=== PATIENT | female | born 1940 | race American Indian/Alaskan Native ===

== ENCOUNTER 2019-10-08 16:37 | Inpatient (IN) | payer MEDICARE ==
[2019-10-08 17:20] LABS: Eosinophils % (Auto) 0.3 % (0.0-4.3); Hematocrit 47.9 % (30.3-42.9); Hemoglobin 15.2 gm/dl (10.1-14.3); Lymphocytes # (Auto) 1.1 K/mm3 (1.2-5.4); Lymphocytes % (Auto) 23.6 % (13.4-35.0); Mean Corpuscular HGB Conc 32 % (30-34); Mean Corpuscular Volume 97 fl (79-97); Monocytes # (Auto) 0.4 K/mm3 (0.0-0.8); Monocytes % (Auto) 7.8 % (0.0-7.3); Platelet Count 202 K/mm3 (140-440); Red Blood Count 4.92 M/mm3 (3.65-5.03); Red Cell Distribution Width 15.7 % (13.2-15.2)
[2019-10-08 17:33] LABS: BUN/Creatinine Ratio 36; Blood Urea Nitrogen 29 mg/dL (7-17); Calcium 9.5 mg/dL (8.4-10.2); Hemolysis Index 27
--- NOTE | 2019-10-08 18:21 | Emergency Department Report ---
ED General Adult HPI - General Chief complaint: Dyspnea/Respdistress Stated complaint: DOC SENT Time Seen by Provider: 10/08/19 18:11 Source: patient Mode of arrival: Wheelchair Limitations: No Limitations - History of Present Illness Initial comments: The patient presents to the emergency department via the request of her primary care physician for increased lower extremity swelling. Patient also complains of shortness of breath and difficulty when lying flat. Patient denies any chest pain. Patient states she does water pill daily for her swelling. -: unknown Severity scale (0 -10): 0 Improves with: none Worsens with: none Associated Symptoms: denies other symptoms Treatments Prior to Arrival: none - Related Data Home Medications Medication Instructions Recorded Confirmed Last Taken Amlodipine Besylate [Norvasc] 2.5 mg PO DAILY 10/08/19 10/08/19 Unknown Metformin HCl [Metformin HCl ER] 500 mg PO BID 10/08/19 10/08/19 Unknown Pravastatin Sodium [Pravastatin] 10 mg PO DAILY 10/08/19 10/08/19 Unknown Previous Rx's Medication Instructions Recorded Last Taken Type Aspirin [Aspirin BABY CHEW TAB] 81 mg PO QDAY tab.chew 10/12/19 Unknown Rx AtorvaSTATin [Lipitor] 20 mg PO QHS tablet 10/12/19 Unknown Rx Budesonide [Pulmicort Respules] 0.5 mg IH Q12HRT nebu 10/12/19 Unknown Rx Docusate Sodium [Colace CAP] 100 mg PO BID capsule 10/12/19 Unknown Rx Enoxaparin 40 mg SUB-Q QDAY@1000 syringe 10/12/19 Unknown Rx Ipratropium/Albuterol Sulfate 1 ampul IH Q6HRT ampul.neb 10/12/19 Unknown Rx [DUONEB *Not for PRN Use*] Metoprolol [Lopressor TAB] 12.5 mg PO BID tablet 10/12/19 Unknown Rx Allergies Allergy/AdvReac Type Severity Reaction Status Date / Time No Known Allergies Allergy Verified 10/08/19 16:40 ED Review of Systems ROS: Stated complaint: DOC SENT Other details as noted in HPI Comment: All other systems reviewed and negative Constitutional: denies: chills, fever Eyes: denies: eye pain, eye discharge, vision change ENT: denies: ear pain, throat pain Respiratory: shortness of breath. denies: cough, wheezing Cardiovascular: denies: chest pain, palpitations Endocrine: no symptoms reported Gastrointestinal: denies: abdominal pain, nausea, diarrhea Genitourinary: denies: urgency, dysuria, discharge Musculoskeletal: denies: back pain, joint swelling, arthralgia Skin: denies: rash, lesions Neurological: denies: headache, weakness, paresthesias Psychiatric: denies: anxiety, depression Hematological/Lymphatic: denies: easy bleeding, easy bruising ED Past Medical Hx - Past Medical History Previous Medical History?: Yes Hx Hypertension: Yes Hx COPD: Yes - Surgical History Past Surgical History?: Yes - Social History Smoking Status: Smoker, Current Status Unknown Substance Use Type: None - Medications Home Medications: Home Medications Medication Instructions Recorded Confirmed Last Taken Type Amlodipine Besylate [Norvasc] 2.5 mg PO DAILY 10/08/19 10/08/19 Unknown History Metformin HCl [Metformin HCl ER] 500 mg PO BID 10/08/19 10/08/19 Unknown History Pravastatin Sodium [Pravastatin] 10 mg PO DAILY 10/08/19 10/08/19 Unknown History Aspirin [Aspirin BABY CHEW TAB] 81 mg PO QDAY tab.chew 10/12/19 Unknown Rx AtorvaSTATin [Lipitor] 20 mg PO QHS tablet 10/12/19 Unknown Rx Budesonide [Pulmicort Respules] 0.5 mg IH Q12HRT nebu 10/12/19 Unknown Rx Docusate Sodium [Colace CAP] 100 mg PO BID capsule 10/12/19 Unknown Rx Enoxaparin 40 mg SUB-Q QDAY@1000 syringe 10/12/19 Unknown Rx Ipratropium/Albuterol Sulfate 1 ampul IH Q6HRT ampul.neb 10/12/19 Unknown Rx [DUONEB *Not for PRN Use*] Metoprolol [Lopressor TAB] 12.5 mg PO BID tablet 10/12/19 Unknown Rx ED Physical Exam - General Limitations: No Limitations General appearance: alert, in no apparent distress - Head Head exam: Present: atraumatic, normocephalic - Eye Eye exam: Present: normal appearance, PERRL, EOMI - ENT ENT exam: Present: mucous membranes moist - Neck Neck exam: Present: normal inspection - Respiratory Respiratory exam: Present: normal lung sounds bilaterally. Absent: respiratory distress - Cardiovascular Cardiovascular Exam: Present: regular rate, normal rhythm. Absent: systolic murmur, diastolic murmur, rubs, gallop - GI/Abdominal GI/Abdominal exam: Present: soft, normal bowel sounds. Absent: distended, tenderness - Extremities Exam Extremities exam: Present: normal inspection, other (PE edema bilaterally) - Back Exam Back exam: Present: normal inspection - Neurological Exam Neurological exam: Present: alert, oriented X3, CN II-XII intact. Absent: motor sensory deficit - Psychiatric Psychiatric exam: Present: normal affect, normal mood - Skin Skin exam: Present: warm, dry, intact, normal color. Absent: rash ED Course Vital Signs 10/08/19 10/08/19 10/08/19 16:58 17:00 17:03 Temperature 97.4 F L Pulse Rate 99 H 101 H 102 H Respiratory 23 22 16 Rate Blood Pressure 124/57 130/54 Blood Pressure [Left] O2 Sat by Pulse 86 Oximetry 10/08/19 10/08/19 10/08/19 17:07 17:16 17:20 Temperature Pulse Rate 96 H 102 H Respiratory 20 22 Rate Blood Pressure 130/67 Blood Pressure 130/70 [Left] O2 Sat by Pulse 86 72 L 74 L Oximetry 10/08/19 10/08/19 10/08/19 17:30 17:46 18:00 Temperature Pulse Rate 91 H 92 H 91 H Respiratory 16 20 15 Rate Blood Pressure 130/67 130/67 Blood Pressure [Left] O2 Sat by Pulse 98 98 97 Oximetry 10/08/19 10/08/19 10/08/19 18:16 18:30 18:46 Temperature Pulse Rate 89 88 100 H Respiratory 15 16 19 Rate Blood Pressure 99/43 99/43 99/43 Blood Pressure [Left] O2 Sat by Pulse 97 97 92 Oximetry 10/08/19 10/08/19 10/08/19 19:00 19:16 19:30 Temperature Pulse Rate 93 H 91 H 93 H Respiratory 19 19 19 Rate Blood Pressure 99/43 102/43 102/43 Blood Pressure [Left] O2 Sat by Pulse 92 93 96 Oximetry 10/08/19 10/08/19 10/08/19 19:46 20:00 20:16 Temperature Pulse Rate 91 H 91 H 88 Respiratory 17 18 17 Rate Blood Pressure 102/43 Blood Pressure [Left] O2 Sat by Pulse 95 96 92 Oximetry 10/08/19 10/08/19 10/08/19 20:30 20:46 21:00 Temperature Pulse Rate 87 82 89 Respiratory 22 11 L 22 Rate Blood Pressure Blood Pressure [Left] O2 Sat by Pulse 90 98 Oximetry 10/08/19 10/08/19 10/08/19 21:05 21:16 21:50 Temperature Pulse Rate 90 90 Respiratory 20 Rate Blood Pressure 95/48 Blood Pressure [Left] O2 Sat by Pulse 96 95 Oximetry 10/08/19 10/08/19 22:00 22:10 Temperature Pulse Rate 89 88 Respiratory 18 19 Rate Blood Pressure 95/48 95/48 Blood Pressure [Left] O2 Sat by Pulse 92 94 Oximetry ED Medical Decision Making - Lab Data Result diagrams: 10/12/19 04:55 10/12/19 04:55 Lab Results 10/08/19 10/08/19 10/08/19 Range/Units 16:56 16:56 16:56 WBC 4.6 (4.5-11.0) K/mm3 RBC 4.92 (3.65-5.03) M/mm3 Hgb 15.2 H (10.1-14.3) gm/dl Hct 47.9 H (30.3-42.9) % MCV 97 (79-97) fl MCH 31 (28-32) pg MCHC 32 (30-34) % RDW 15.7 H (13.2-15.2) % Plt Count 202 (140-440) K/mm3 Lymph % (Auto) 23.6 (13.4-35.0) % [place] % (Auto) 7.8 H (0.0-7.3) % Eos % (Auto) 0.3 (0.0-4.3) % Baso % (Auto) 1.0 (0.0-1.8) % Lymph # 1.1 L (1.2-5.4) K/mm3 [place] # 0.4 (0.0-0.8) K/mm3 Eos # 0.0 (0.0-0.4) K/mm3 Baso # 0.0 (0.0-0.1) K/mm3 Seg Neutrophils % 67.3 (40.0-70.0) % Seg Neutrophils # 3.1 (1.8-7.7) K/mm3 PT (12.2-14.9) Sec. INR (0.87-1.13) APTT (24.2-36.6) Sec. POC ABG pH (7.35-7.45) POC ABG pO2 (80-105) POC ABG HCO3 (22-26 mml/L) POC ABG Total CO2 (23-27mmol/L) POC ABG O2 Sat POC ABG Base Excess ((-2) - (+3)mmol/L) FiO2 % Sodium 136 L (137-145) mmol/L Potassium 5.5 H (3.6-5.0) mmol/L Chloride 94.4 L (98-107) mmol/L Carbon Dioxide 27 (22-30) mmol/L Anion Gap 20 mmol/L BUN 29 H (7-17) mg/dL Creatinine 0.8 (0.7-1.2) mg/dL Estimated GFR > 60 ml/min BUN/Creatinine Ratio 36 % Glucose 113 H (65-100) mg/dL Calcium 9.5 (8.4-10.2) mg/dL NT-Pro-B Natriuret Pep 78537 H (0-900) pg/mL Triglycerides (2-149) mg/dL Cholesterol (50-199) mg/dL LDL Cholesterol Direct (50-130) mg/dL HDL Cholesterol (40-59) mg/dL Cholesterol/HDL Ratio % TSH (0.270-4.200) mlU/mL 10/08/19 10/08/19 10/08/19 Range/Units 17:53 18:41 18:41 WBC (4.5-11.0) K/mm3 RBC (3.65-5.03) M/mm3 Hgb (10.1-14.3) gm/dl Hct (30.3-42.9) % MCV (79-97) fl MCH (28-32) pg MCHC (30-34) % RDW (13.2-15.2) % Plt Count (140-440) K/mm3 Lymph % (Auto) (13.4-35.0) % [place] % (Auto) (0.0-7.3) % Eos % (Auto) (0.0-4.3) % Baso % (Auto) (0.0-1.8) % Lymph # (1.2-5.4) K/mm3 [place] # (0.0-0.8) K/mm3 Eos # (0.0-0.4) K/mm3 Baso # (0.0-0.1) K/mm3 Seg Neutrophils % (40.0-70.0) % Seg Neutrophils # (1.8-7.7) K/mm3 PT 14.2 (12.2-14.9) Sec. INR 1.11 (0.87-1.13) APTT 25.1 (24.2-36.6) Sec. POC ABG pH 7.291 L (7.35-7.45) POC ABG pO2 79 L (80-105) POC ABG HCO3 34.2 (22-26 mml/L) POC ABG Total CO2 36 (23-27mmol/L) POC ABG O2 Sat 93 POC ABG Base Excess 8 ((-2) - (+3)mmol/L) FiO2 32 % Sodium (137-145) mmol/L Potassium (3.6-5.0) mmol/L Chloride (98-107) mmol/L Carbon Dioxide (22-30) mmol/L Anion Gap mmol/L BUN (7-17) mg/dL Creatinine (0.7-1.2) mg/dL Estimated GFR ml/min BUN/Creatinine Ratio % Glucose (65-100) mg/dL Calcium (8.4-10.2) mg/dL NT-Pro-B Natriuret Pep (0-900) pg/mL Triglycerides 62 (2-149) mg/dL Cholesterol 132 (50-199) mg/dL LDL Cholesterol Direct 72 (50-130) mg/dL HDL Cholesterol 51 (40-59) mg/dL Cholesterol/HDL Ratio 2.58 % TSH (0.270-4.200) mlU/mL 10/08/19 Range/Units 18:41 WBC (4.5-11.0) K/mm3 RBC (3.65-5.03) M/mm3 Hgb (10.1-14.3) gm/dl Hct (30.3-42.9) % MCV (79-97) fl MCH (28-32) pg MCHC (30-34) % RDW (13.2-15.2) % Plt Count (140-440) K/mm3 Lymph % (Auto) (13.4-35.0) % [place] % (Auto) (0.0-7.3) % Eos % (Auto) (0.0-4.3) % Baso % (Auto) (0.0-1.8) % Lymph # (1.2-5.4) K/mm3 [place] # (0.0-0.8) K/mm3 Eos # (0.0-0.4) K/mm3 Baso # (0.0-0.1) K/mm3 Seg Neutrophils % (40.0-70.0) % Seg Neutrophils # (1.8-7.7) K/mm3 PT (12.2-14.9) Sec. INR (0.87-1.13) APTT (24.2-36.6) Sec. POC ABG pH (7.35-7.45) POC ABG pO2 (80-105) POC ABG HCO3 (22-26 mml/L) POC ABG Total CO2 (23-27mmol/L) POC ABG O2 Sat POC ABG Base Excess ((-2) - (+3)mmol/L) FiO2 % Sodium (137-145) mmol/L Potassium (3.6-5.0) mmol/L Chloride (98-107) mmol/L Carbon Dioxide (22-30) mmol/L Anion Gap mmol/L BUN (7-17) mg/dL Creatinine (0.7-1.2) mg/dL Estimated GFR ml/min BUN/Creatinine Ratio % Glucose (65-100) mg/dL Calcium (8.4-10.2) mg/dL NT-Pro-B Natriuret Pep (0-900) pg/mL Triglycerides (2-149) mg/dL Cholesterol (50-199) mg/dL LDL Cholesterol Direct (50-130) mg/dL HDL Cholesterol (40-59) mg/dL Cholesterol/HDL Ratio % TSH 4.560 H (0.270-4.200) mlU/mL - Medical Decision Making IV lasix given Critical Care Time: Yes Critical care time in (mins) excluding proc time.: 45 Critical care attestation.: If time is entered above; I have spent that time in minutes in the direct care of this critically ill patient, excluding procedure time. ED Disposition Clinical Impression: Acute heart failure Disposition: OP ADMIT IP TO THIS HOSP Is pt being admited?: Yes Does the pt Need Aspirin: Yes Condition: Fair
[2019-10-08] MEDS ORDERED: ACETAMINOPHEN 325 MG TAB PO PRN (18:27)
[2019-10-08] MEDS ORDERED: ONDANSETRON 4 MG/2 ML INJ IV PRN (18:27)
[2019-10-08 19:05] LABS: Chol/HDL Ratio 2.58 %
[2019-10-08 19:18] LABS: INR 1.11 (0.87-1.13)
[2019-10-08 19:19] LABS: Partial Thromboplastin Time 25.1 Sec. (24.2-36.6)
--- NOTE | 2019-10-08 19:39 | History and Physical Report ---
History of Present Illness Date of examination: 10/08/19 Date of admission: 10/08/19 Chief complaint: Swelling of both lower extremities for 1 month Shortness of breath for one month History of present illness: Patient is 78-year-old female who has a history of COPD and current tobacco user, presented to my office about 2 weeks ago with swelling of the both lower extremities. Chest x-ray and CT scan were ordered as well as Echocardiogram. Patient was continued on bronchodilators and placed on diuretics. While at the cardiology office today, 10/08/19 patient was having increasing shortness of breath. I was contacted for further evaluation as her PCP. While in my office patient was found to have progressive shortness of breath with hypoxia. She has bilateral pedal edema. Denies any chest pain. Has orthopnea with proximal nocturnal dyspnea. No cough. Admission was therefore requested through the Emergency department. 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 ABG showed a pH of 7.29 with PO2 of 79 at FiO2 of 32. ProBNP was 12,267 glucose was elevated 113. Past History Past Medical History: COPD Past Surgical History: No surgical history Social history: , smoking. denies: alcohol abuse, prescription drug abuse, IV drug use Family history: hypertension Medications and Allergies Allergies Allergy/AdvReac Type Severity Reaction Status Date / Time No Known Allergies Allergy Verified 10/08/19 16:40 Home Medications Medication Instructions Recorded Confirmed Last Taken Type Amlodipine Besylate [Norvasc] 2.5 mg PO DAILY 10/08/19 10/08/19 Unknown History Aspirin [Aspirin BABY CHEW TAB] 81 mg PO QDAY 10/08/19 10/08/19 Unknown History Enalapril Maleate [Vasotec] 5 mg PO DAILY 10/08/19 10/08/19 Unknown History Metformin HCl [Metformin HCl ER] 500 mg PO BID 10/08/19 10/08/19 Unknown History Pravastatin Sodium [Pravastatin] 10 mg PO DAILY 10/08/19 10/08/19 Unknown History Active Meds: Active Medications Acetaminophen (Tylenol) 650 mg PO Q4H PRN PRN Reason: Pain MILD(1-3)/Fever >100.5/BAKER Albuterol/Ipratropium (Duoneb *Not For Prn Use*) 1 ampul IH Q6HRT [facility] Aspirin (Baby Aspirin) 81 mg PO QDAY JULIO CESAR Atorvastatin Calcium (Lipitor) 20 mg PO QHS [facility] Budesonide (Pulmicort) 0.5 mg IH Q12HRT [facility] Docusate Sodium (Colace) 100 mg PO BID JULIO CESAR Enoxaparin Sodium (Enoxaparin) 30 mg SUB-Q QDAY [facility] Famotidine (Pepcid) 20 mg IV BID [facility] Furosemide (Lasix) 40 mg IV QDAY [facility] Losartan Potassium (Cozaar) 25 mg PO QDAY JULIO CESAR Ondansetron HCl (Zofran) 4 mg IV Q8H PRN PRN Reason: Nausea And Vomiting Sodium Chloride (Sodium Chloride Flush Syringe 10 Ml) 10 ml IV BID JULIO CESAR Sodium Chloride (Sodium Chloride Flush Syringe 10 Ml) 10 ml IV PRN PRN PRN Reason: LINE FLUSH Sodium Polystyrene Sulfonate (Kionex) 30 gm PO ONCE ONE Stop: 10/08/19 19:42 Review of systems Constitutional: Well Nourished and Well developed. Head: NC/ AT Eyes: Denies any visual impairments. No discharge from the eyes Nose: Denies any rhinorrhea or epistaxis Throats: Denies any post nasal drainage. Ears: Denies any hearing deficits Cardiovascular system: Denies any chest pain. Has shortness of breath, orthopnea, paroxysmal nocturnal dyspnea, no palpitation. Respiratory system: Has difficulty breathing, no wheezing, pleuritic chest pain, Gastrointestinal system: Denies any abdominal pain, nausea vomiting, hematemesis or melena. Neurological system: Denies any headache, slurred speech, facial droop, lateralizing weakness Genitalia system: Denies any dysuria, urinary frequency or urgency, urethral dis charge Skin: No rashes, hyperpigmented spots. Hematological: Denies any cervical tenderness hemorrhages or petechia. Immunological: Denies any multiple septic spots, Lymphatic: Denies any generalized lymphadenopathy. Endocrine: Denies any polyuria, polydipsia, polyphagia. No heat or cold intolerance. Musculoskeletal system: No joint pain or swelling. Psych: No visual, tactile, auditory or hallucination Exam - Physical Exam Narrative exam: Constitutional: Well-nourished well-developed. In no distress Head: Normocephalic atraumatic Eyes: Pupils are equal round and reactive to light Nose: No enlarged turbinates, no septal deviation. Mouth: Moist mucous membranes. Neck: Supple no thyromegaly. No bruit. Has JVD Heart: Regular rate and rhythm, S1-S2 with S3. No rubs murmurs or gallop Lungs: Decreased breath sounds bilaterally. no rales or rhonchi Abdomen: Soft, nontender. Bowel sound are present. Extremities: 3+ edema, no cyanosis, no clubbing. Neuro: Alert oriented Oriented x3. No focal sensory or motor deficit. Skin: No rashes or hyperpigmented spots Musculoskeletal system: No joint pain or swelling Hematological: No petechia or subcutanous hemorrhages. Immunological: No multiple septic spots on the skin Lymphatic: No generalized lymphadenopathy Psychiatry: Euthymic. Calm. - Constitutional Vitals: Temp Pulse Resp BP Pulse Ox 97.4 F L 89 15 99/43 97 10/08/19 17:03 10/08/19 18:16 10/08/19 18:16 10/08/19 18:16 10/08/19 18:16 Results - Labs CBC & Chem 7: 10/08/19 16:56 10/08/19 16:56 Labs: Abnormal lab results 10/08/19 10/08/19 10/08/19 Range/Units 16:56 16:56 16:56 Hgb 15.2 H (10.1-14.3) gm/dl Hct 47.9 H (30.3-42.9) % RDW 15.7 H (13.2-15.2) % [place] % (Auto) 7.8 H (0.0-7.3) % Lymph # 1.1 L (1.2-5.4) K/mm3 Sodium 136 L (137-145) mmol/L Potassium 5.5 H (3.6-5.0) mmol/L Chloride 94.4 L (98-107) mmol/L BUN 29 H (7-17) mg/dL Glucose 113 H (65-100) mg/dL NT-Pro-B Natriuret Pep 39908 H (0-900) pg/mL TSH (0.270-4.200) mlU/mL 10/08/19 Range/Units 18:41 Hgb (10.1-14.3) gm/dl Hct (30.3-42.9) % RDW (13.2-15.2) % [place] % (Auto) (0.0-7.3) % Lymph # (1.2-5.4) K/mm3 Sodium (137-145) mmol/L Potassium (3.6-5.0) mmol/L Chloride (98-107) mmol/L BUN (7-17) mg/dL Glucose (65-100) mg/dL NT-Pro-B Natriuret Pep (0-900) pg/mL TSH 4.560 H (0.270-4.200) mlU/mL Assessment and Plan Patient is 78-year-old female who has a history of COPD and current tobacco user, presented to my office about 2 weeks ago with swelling of the both lower extremities. Chest x-ray and CT scan were ordered as well as Echocardiogram. Patient was continued on bronchodilators and placed on diuretics. While at the cardiology office today, 10/08/19 patient was having increasing shortness of breath. I was contacted for further evaluation as her PCP. While in my office patient was found to have progressive shortness of breath with hypoxia. She has bilateral pedal edema. Denies any chest pain. Has orthopnea with proximal nocturnal dyspnea. No cough. Admission was therefore requested through the Emergency department. 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 ABG showed a pH of 7.29 with PO2 of 79 at FiO2 of 32. ProBNP was 12,267 glucose was elevated 113. -Acute respiratory failure with hypoxia and hypercapnia Commence patient on bronchodilators with albuterol and Atrovent Brovana and Sym bicort IV Solu-Medrol IV Levaquin Supplemental oxygen Pulmonary consult - COPD with acute exacerbation Bronchodilators IV Solu-Medrol IV antibiotics - Cor pulmonale Due to diuresis - Heart failure Strict I's and O's, Daily weights 2 Gram sodium diet EKG Obtain BNP, TSH, lipid panel Echocardiogram Commence patient on iv Furosemide, ACEI, will hold beta blockers because of respiratory failure, Statins, spironolactone Cardiology consult - Hyperkalemia With a potassium of 5.5. Commence Kayexalate 15 g 1 Continue with IV Lasix Repeat potassium level - Abnormal TSH We will obtain T4 level - Hyperglycemia Obtain A1c Trend blood glucose - Tobacco use disorder Tobacco cessation counseling was done - DVT prophylaxis with Lovenox and GI with Pepcid - CODE STATUS: Discussed CODE STATUS with the patient's was very lucid. Stated that she is full code Time spent: 40 minutes
[2019-10-08] MEDS ORDERED: SODIUM POLYSTYRENE 15 GM/60 ML ORAL LIQD PO ONE (19:41)
[2019-10-08] MEDS ORDERED: FUROSEMIDE 40 MG/4 ML INJ IV ONE (19:56)
[2019-10-08] MEDS ORDERED: ENOXAPARIN 30 MG/0.3 ML INJ SUB-Q SCH (20:00)
[2019-10-08] MEDS: FUROSEMIDE 40 MG/4 ML INJ IV SCH (20:42)
[2019-10-08] MEDS: ASPIRIN 81 MG TAB CHEW PO SCH (20:49)
[2019-10-08] MEDS: BUDESONIDE 0.5 MG/2 ML NEBU IH SCH (21:20)
[2019-10-08] MEDS: IPRATROPIUM/ALBUTEROL SULFATE 3 ML AMPUL.NEB IH SCH (21:20)
[2019-10-08] MEDS: FAMOTIDINE 20 MG/2 ML INJ IV SCH (23:12)
[2019-10-08] MEDS: DOCUSATE SODIUM 100 MG CAP PO SCH (23:12)
[2019-10-09] MEDS: IPRATROPIUM/ALBUTEROL SULFATE 3 ML AMPUL.NEB IH SCH ×4 (02:30→21:08)
[2019-10-09 04:30] LABS: Basophils % (Auto) 1.3 % (0.0-1.8); Eosinophils % (Auto) 0.7 % (0.0-4.3); Hematocrit 42.3 % (30.3-42.9); Hemoglobin 13.5 gm/dl (10.1-14.3); Lymphocytes # (Auto) 1.1 K/mm3 (1.2-5.4); Lymphocytes % (Auto) 27.9 % (13.4-35.0); Mean Corpuscular HGB Conc 32 % (30-34); Mean Corpuscular Volume 97 fl (79-97); Monocytes # (Auto) 0.5 K/mm3 (0.0-0.8); Monocytes % (Auto) 14.3 % (0.0-7.3); Platelet Count 178 K/mm3 (140-440); Red Blood Count 4.38 M/mm3 (3.65-5.03); Red Cell Distribution Width 15.8 % (13.2-15.2)
[2019-10-09 04:51] LABS: Alanine Aminotransferase 22 units/L (7-56); Albumin 3.8 g/dL (3.9-5); BUN/Creatinine Ratio 33; Blood Urea Nitrogen 30 mg/dL (7-17); Calcium 8.9 mg/dL (8.4-10.2); Hemolysis Index 9
--- NOTE | 2019-10-09 04:54 | XRay Report ---
CHEST 1 VIEW 10/08/2019 5:18 PM INDICATION / CLINICAL INFORMATION: SOB. COMPARISON: None available. FINDINGS: SUPPORT DEVICES: None. HEART / MEDIASTINUM: Heart is mildly enlarged. LUNGS / PLEURA: No significant pulmonary or pleural abnormality. No pneumothorax. ADDITIONAL FINDINGS: No significant additional findings. IMPRESSION: 1. Mild cardiomegaly but no acute pulmonary or pleural findings. Signer Name: Hanane Rajan MD Signed: 10/09/2019 4:50 AM Workstation Name: [id number]
[2019-10-09] MEDS: BUDESONIDE 0.5 MG/2 ML NEBU IH SCH ×2 (07:54→21:08)
[2019-10-09 08:43] LABS: Bacteria,Urine 1+ /HPF (Negative); Bilirubin,Urine NEG (Negative); Blood,Urine NEG (Negative); Color,Urine Yellow (Yellow); Hyaline Casts,Urine 1 /LPF; Mucus,Urine FEW /HPF; Protein,Urine <15 mg/dL mg/dL (Negative); Urobilinogen,Urine < 2.0 mg/dL (<2.0)
--- NOTE | 2019-10-09 09:17 | Progress Note ---
Assessment and Plan Patient is 78-year-old female who has a history of COPD and current tobacco user, presented to my office about 2 weeks ago with swelling of the both lower extremities. Chest x-ray and CT scan were ordered as well as Echocardiogram. Patient was continued on bronchodilators and placed on diuretics. While at the cardiology office today, 10/08/19 patient was having increasing shortness of breath. I was contacted for further evaluation as her PCP. While in my office patient was found to have progressive shortness of breath with hypoxia. She has bilateral pedal edema. Denies any chest pain. Has orthopnea with proximal nocturnal dyspnea. No cough. Admission was therefore requested through the Emergency department. 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 ABG showed a pH of 7.29 with PO2 of 79 at FiO2 of 32. ProBNP was 12,267 glucose was elevated 113. -Acute on chronic respiratory failure with hypoxia and hypercapnia Cont with bronchodilators with albuterol and Atrovent neb, Brovana and Symbicort IV Solu-Medrol IV Levaquin Supplemental oxygen Pulmonary consulted - COPD with acute exacerbation Bronchodilators with supple. oxygen IV Solu-Medrol IV antibiotics - Cor pulmonale diuresis - Heart failure with pending LV fnx eval Strict I's and O's, Daily weights 2 Gram sodium diet EKG showed RBBB with evidence of old infarction BNP was 60159, Echocardiogram - pending Commence patient on iv Furosemide, ACEI, will hold beta blockers because of acute respiratory failure, Continue with Statins, commence spironolactone when K level is normal Cardiology consulted - Hyperkalemia - improving With decrease of potassium from 5.5. to 5.1 anticipate further improvement with diuresis Continue with IV Lasix Recheck potassium level - Abnormal TSH but normal T4 level - Hyperglycemia check A1c Trend blood glucose - Tobacco use disorder Tobacco cessation counseling was done - DVT prophylaxis with Lovenox and GI with Pepcid - CODE STATUS: Discussed CODE STATUS with the patient who is was very lucid. Stated that she is full code Time spent: 30 minutes Subjective Date of service: 10/09/19 Principal diagnosis: Ac.on chr respiratory failure with hypoxia and hypercap, acute sytolic HF, Interval history: Still short of breath with dre pitting pedal edema Objective - Exam Narrative Exam: Constitutional: Well-nourished well-developed. In no distress Head: Normocephalic atraumatic Eyes: Pupils are equal round and reactive to light Nose: No enlarged turbinates, no septal deviation. Mouth: Moist mucous membranes. Neck: Supple no thyromegaly. No bruit. Has JVD Heart: Regular rate and rhythm, S1-S2 with S3. No rubs murmurs Lungs: Decreased breath sounds bilaterally. no rales or rhonchi Abdomen: Soft, nontender. Bowel sound are present. Extremities: 3+ edema, no cyanosis, no clubbing. Neuro: Alert oriented Oriented x3. No focal sensory or motor deficit. Skin: No rashes or hyperpigmented spots Musculoskeletal system: No joint pain or swelling Hematological: No petechia or subcutanous hemorrhages. Immunological: No multiple septic spots on the skin Lymphatic: No generalized lymphadenopathy Psychiatry: Euthymic. Calm. - Constitutional Vitals: Vital Signs - 12hr 10/08/19 10/08/19 10/08/19 21:16 21:50 22:00 Temperature Pulse Rate 90 90 89 Pulse Rate [ Bases] Respiratory 20 18 Rate Respiratory Rate [Bases] Blood Pressure 95/48 95/48 Blood Pressure [Left] O2 Sat by Pulse 95 92 Oximetry 10/08/19 10/08/19 10/08/19 22:10 22:20 23:19 Temperature 98.0 F Pulse Rate 88 88 86 Pulse Rate [ Bases] Respiratory 19 20 18 Rate Respiratory Rate [Bases] Blood Pressure 95/48 95/48 103/53 Blood Pressure [Left] O2 Sat by Pulse 94 91 98 Oximetry 10/09/19 10/09/19 10/09/19 02:33 02:44 05:00 Temperature 97.5 F L Pulse Rate 87 Pulse Rate [ 99 H Bases] Respiratory 20 Rate Respiratory 20 Rate [Bases] Blood Pressure Blood Pressure 100/56 [Left] O2 Sat by Pulse 97 97 Oximetry 10/09/19 10/09/19 10/09/19 05:05 05:39 05:42 Temperature 97.7 F Pulse Rate 83 56 L Pulse Rate [ Bases] Respiratory 20 Rate Respiratory Rate [Bases] Blood Pressure 100/56 Blood Pressure [Left] O2 Sat by Pulse 38 L Oximetry 10/09/19 07:29 Temperature 97.9 F Pulse Rate 86 Pulse Rate [ Bases] Respiratory 18 Rate Respiratory Rate [Bases] Blood Pressure 116/69 Blood Pressure [Left] O2 Sat by Pulse 96 Oximetry - Labs CBC & Chem 7: 10/10/19 03:35 10/10/19 03:35 Labs: Abnormal lab results 10/08/19 10/08/19 10/08/19 Range/Units 16:56 16:56 16:56 WBC (4.5-11.0) K/mm3 Hgb 15.2 H (10.1-14.3) gm/dl Hct 47.9 H (30.3-42.9) % RDW 15.7 H (13.2-15.2) % [place] % (Auto) 7.8 H (0.0-7.3) % Lymph # 1.1 L (1.2-5.4) K/mm3 POC ABG pH (7.35-7.45) POC ABG pO2 (80-105) Sodium 136 L (137-145) mmol/L Potassium 5.5 H (3.6-5.0) mmol/L Chloride 94.4 L (98-107) mmol/L Carbon Dioxide (22-30) mmol/L BUN 29 H (7-17) mg/dL Glucose 113 H (65-100) mg/dL NT-Pro-B Natriuret Pep 32495 H (0-900) pg/mL Albumin (3.9-5) g/dL TSH (0.270-4.200) mlU/mL 10/08/19 10/08/19 10/09/19 Range/Units 17:53 18:41 03:22 WBC 3.8 L (4.5-11.0) K/mm3 Hgb (10.1-14.3) gm/dl Hct (30.3-42.9) % RDW 15.8 H (13.2-15.2) % [place] % (Auto) 14.3 H (0.0-7.3) % Lymph # 1.1 L (1.2-5.4) K/mm3 POC ABG pH 7.291 L (7.35-7.45) POC ABG pO2 79 L (80-105) Sodium (137-145) mmol/L Potassium (3.6-5.0) mmol/L Chloride (98-107) mmol/L Carbon Dioxide (22-30) mmol/L BUN (7-17) mg/dL Glucose (65-100) mg/dL NT-Pro-B Natriuret Pep (0-900) pg/mL Albumin (3.9-5) g/dL TSH 4.560 H (0.270-4.200) mlU/mL 10/09/19 Range/Units 03:22 WBC (4.5-11.0) K/mm3 Hgb (10.1-14.3) gm/dl Hct (30.3-42.9) % RDW (13.2-15.2) % [place] % (Auto) (0.0-7.3) % Lymph # (1.2-5.4) K/mm3 POC ABG pH (7.35-7.45) POC ABG pO2 (80-105) Sodium (137-145) mmol/L Potassium 5.1 H (3.6-5.0) mmol/L Chloride 97.5 L (98-107) mmol/L Carbon Dioxide 34 H D (22-30) mmol/L BUN 30 H (7-17) mg/dL Glucose (65-100) mg/dL NT-Pro-B Natriuret Pep (0-900) pg/mL Albumin 3.8 L (3.9-5) g/dL TSH (0.270-4.200) mlU/mL
[2019-10-09] MEDS: ASPIRIN 81 MG TAB CHEW PO SCH (10:37)
[2019-10-09] MEDS: LOSARTAN 25 MG TAB PO SCH (10:37)
[2019-10-09] MEDS: FAMOTIDINE 20 MG/2 ML INJ IV SCH ×2 (10:37→21:11)
[2019-10-09] MEDS: DOCUSATE SODIUM 100 MG CAP PO SCH ×2 (10:37→21:11)
[2019-10-09] MEDS: FUROSEMIDE 40 MG/4 ML INJ IV SCH ×2 (10:37→21:11)
[2019-10-09] MEDS: ENOXAPARIN 40 MG/0.4 ML INJ SUB-Q SCH (10:38)
--- NOTE | 2019-10-09 11:13 | Consultation ---
History of Present Illness Consult date: 10/09/19 Requesting physician: PEMA CONTRERAS Consult reason: congestive heart failure History of present illness: The patient is 78-year-old female with a past medical history of HTN, HLP, DM, COPD and current tobacco user. She is previously unknown to our practice. She presented to her PCP's office, Dr. Contreras, about 2 weeks ago with swelling of the both lower extremities and SOB. Chest x-ray and CT scan were ordered as we ll as Echocardiogram. Patient was continued on bronchodilators and placed on diuretics. Pt was reportedly in our office seeing Dr. EFREM Guevara (although we have no office records available in our EMR) when she was noted to have SOB and was referred to [facility] for further eval/management. Pt denies any chest pain, palpitations, n/v, diaphoresis, dizziness or syncope. She denies any known prior cardiac issues. Past History Past Medical History: COPD, diabetes, hypertension, hyperlipidemia Past Surgical History: No surgical history Social history: , smoking. denies: alcohol abuse, prescription drug ab use, IV drug use Family history: hypertension Medications and Allergies Allergies Allergy/AdvReac Type Severity Reaction Status Date / Time No Known Allergies Allergy Verified 10/08/19 16:40 Home Medications Medication Instructions Recorded Confirmed Last Taken Type Amlodipine Besylate [Norvasc] 2.5 mg PO DAILY 10/08/19 10/08/19 Unknown History Aspirin [Aspirin BABY CHEW TAB] 81 mg PO QDAY 10/08/19 10/08/19 Unknown History Enalapril Maleate [Vasotec] 5 mg PO DAILY 10/08/19 10/08/19 Unknown History Metformin HCl [Metformin HCl ER] 500 mg PO BID 10/08/19 10/08/19 Unknown History Pravastatin Sodium [Pravastatin] 10 mg PO DAILY 10/08/19 10/08/19 Unknown History Active Meds: Active Medications Acetaminophen (Tylenol) 650 mg PO Q4H PRN PRN Reason: Pain MILD(1-3)/Fever >100.5/BAKER Albuterol/Ipratropium (Duoneb *Not For Prn Use*) 1 ampul IH Q6HRT [facility] Last Admin: 10/09/19 07:54 Dose: 1 ampul Documented by: Aspirin (Baby Aspirin) 81 mg PO QDAY [facility] Last Admin: 10/09/19 10:37 Dose: 81 mg Documented by: Atorvastatin Calcium (Lipitor) 20 mg PO QHS [facility] Last Admin: 10/08/19 23:12 Dose: 20 mg Documented by: Budesonide (Pulmicort) 0.5 mg IH Q12HRT [facility] Last Admin: 10/09/19 07:54 Dose: 0.5 mg Documented by: Docusate Sodium (Colace) 100 mg PO BID [facility] Last Admin: 10/09/19 10:37 Dose: 100 mg Documented by: Enoxaparin Sodium (Enoxaparin) 40 mg SUB-Q QDAY@1000 [facility] Last Admin: 10/09/19 10:38 Dose: 40 mg Documented by: Famotidine (Pepcid) 20 mg IV BID [facility] Last Admin: 10/09/19 10:37 Dose: 20 mg Documented by: Furosemide (Lasix) 40 mg IV QDAY [facility] Last Admin: 10/09/19 10:37 Dose: 40 mg Documented by: Levofloxacin/Dextrose (Levaquin 500mg/100ml) 500 mg in 100 mls @ 100 mls/hr IV Q24HR [facility]; Protocol Last Admin: 10/09/19 10:44 Dose: 100 mls/hr Documented by: Losartan Potassium (Cozaar) 25 mg PO QDAY [facility] Last Admin: 10/09/19 10:37 Dose: 25 mg Documented by: Ondansetron HCl (Zofran) 4 mg IV Q8H PRN PRN Reason: Nausea And Vomiting Sodium Chloride (Sodium Chloride Flush Syringe 10 Ml) 10 ml IV BID [facility] Last Admin: 10/09/19 10:38 Dose: 10 ml Documented by: Sodium Chloride (Sodium Chloride Flush Syringe 10 Ml) 10 ml IV PRN PRN PRN Reason: LINE FLUSH Review of Systems Constitutional: no weight loss, no weight gain, no fever, no chills, no sweats Ears, nose, mouth and throat: no ear pain, no nose pain, no sinus pressure, no sinus pain Cardiovascular: edema, shortness of breath, dyspnea on exertion, high blood pressure, leg edema, no chest pain, no palpitations, no rapid/irregular heart beat, no syncope, no lightheadedness Respiratory: shortness of breath, dyspnea on exertion, no cough, no congestion, no wheezing, no pain on inspiration Gastrointestinal: no abdominal pain, no nausea, no vomiting, no diarrhea, no constipation, no change in bowel habits Genitourinary Female: no pelvic pain, no flank pain, no dysuria, no urinary frequency, no urgency Musculoskeletal: no neck stiffness, no neck pain, no shooting arm pain, no arm numbness/tingling, no low back pain, no shooting leg pain Integumentary: no rash, no pruritis, no redness, no sores, no wounds Neurological: no head injury, no paralysis, no weakness, no parathesias, no numbness, no tingling, no seizures, no syncope Psychiatric: no anxiety Endocrine: no cold intolerance, no heat intolerance Hematologic/Lymphatic: no easy bruising, no easy bleeding Allergic/Immunologic: no urticaria, no wheezing Physical Examination Vital Signs Pulse Resp 99 H 23 10/08/19 16:58 10/08/19 16:58 General appearance: no acute distress HEENT: Positive: PERRL, Normocephaly, Mucus Membranes Moist Neck: Positive: neck supple, trachea midline Cardiac: Positive: Reg Rate and Rhythm, S1/S2, S3 Lungs: Positive: Rales, Wheezes Neuro: Positive: Grossly Intact Abdomen: Negative: Tender Skin: Negative: Rash Musculoskeletal: No Pain Extremities: Present: +2 Edema (BLE) Results 10/09/19 03:22 10/09/19 03:22 Cardiac Enzymes 10/09/19 Range/Units 03:22 AST 22 (5-40) units/L Coagulation 10/08/19 Range/Units 18:41 PT 14.2 (12.2-14.9) Sec. INR 1.11 (0.87-1.13) APTT 25.1 (24.2-36.6) Sec. Lipids 10/08/19 Range/Units 18:41 Triglycerides 62 (2-149) mg/dL Cholesterol 132 (50-199) mg/dL HDL Cholesterol 51 (40-59) mg/dL Cholesterol/HDL Ratio 2.58 % CBC 10/08/19 10/09/19 Range/Units 16:56 03:22 WBC 4.6 3.8 L (4.5-11.0) K/mm3 RBC 4.92 4.38 (3.65-5.03) M/mm3 Hgb 15.2 H 13.5 (10.1-14.3) gm/dl Hct 47.9 H 42.3 (30.3-42.9) % Plt Count 202 178 (140-440) K/mm3 Lymph # 1.1 L 1.1 L (1.2-5.4) K/mm3 [place] # 0.4 0.5 (0.0-0.8) K/mm3 Eos # 0.0 0.0 (0.0-0.4) K/mm3 Baso # 0.0 0.0 (0.0-0.1) K/mm3 Comprehensive Metabolic Panel 10/08/19 10/09/19 Range/Units 16:56 03:22 Sodium 136 L 143 D (137-145) mmol/L Potassium 5.5 H 5.1 H (3.6-5.0) mmol/L Chloride 94.4 L 97.5 L (98-107) mmol/L Carbon Dioxide 27 34 H D (22-30) mmol/L BUN 29 H 30 H (7-17) mg/dL Creatinine 0.8 0.9 (0.7-1.2) mg/dL Glucose 113 H 100 (65-100) mg/dL Calcium 9.5 8.9 (8.4-10.2) mg/dL AST 22 (5-40) units/L ALT 22 (7-56) units/L Alkaline Phosphatase 52 (35-129) units/L Total Protein 6.8 (6.3-8.2) g/dL Albumin 3.8 L (3.9-5) g/dL - Imaging and Cardiology Echo: pending EKG: report reviewed, image reviewed EKG interpretations - Telemetry EKG Rhythm: Sinus Rhythm - EKG Sinus rhythms and dysrhythmias: sinus rhythm AV and intraventricular conduction: right bundle branch block Assessment and Plan Echo reviewed - EF 50-55%, D-shaped LV, markedly dilated RV, markedly dilated RA, severe TR, systolic flattening of the interventricular septum c/w significant pulmonary HTN, RV compression of LV, RVSP 67mmHg. Await pulmonary consultation and recs. Pt would likely benefit from RHC. Will consider once medically stabilized. Additionally, pt may benefit from V/Q scan and chest CTA for further evaluation of severe pulmonary HTN. Will defer to primary/pulmonary. Increase IV lasix to BID dosing. Cont losartan and initiate lopressor (beta selective in setting of COPD) and titrate as tolerated. Pt noted to have brief runs NSVT overnight (longest was 10 beats). Cont to monitor electrolytes and telemetry. Further recs to follow per hospital course. The patient has been seen in conjunction with Dr. Nugent who agrees with the assessment and plan of care. - Patient Problems (1) Acute heart failure with preserved ejection fraction Current Visit: Yes Status: Acute (2) Cor pulmonale Current Visit: Yes Status: Acute (3) Severe pulmonary arterial systolic hypertension Current Visit: Yes Status: Acute (4) COPD (chronic obstructive pulmonary disease) Current Visit: Yes Status: Chronic (5) HTN (hypertension) Current Visit: Yes Status: Chronic (6) Hyperlipemia Current Visit: Yes Status: Chronic (7) Diabetes Current Visit: Yes Status: Chronic (8) Tobacco use Current Visit: Yes Status: Chronic (9) RBBB Current Visit: Yes Status: Acute (10) Hyperkalemia Current Visit: Yes Status: Acute (11) NSVT (nonsustained ventricular tachycardia) Current Visit: Yes Status: Acute
--- NOTE | 2019-10-09 19:05 | Consultation ---
History of Present Illness Consult date: 10/09/19 Reason for consult: COPD, hypoxemia History of present illness: PULMONARY AND CRITICAL CARE CONSULTATION DR. CONTRERAS THANK YOU FOR ASKING US TO PARTICIPATE IN THE CARE OF THIS PATIENT. Patient is 78-year-old female who has a history of COPD and current tobacco user, swelling of the both lower extremities. Patient was continued on bronchodilators and placed on diuretics. While at the cardiology office 10/08/19 patient was having increasing shortness of breath. She has bilateral pedal edema. Denies any chest pain. Has orthopnea with proximal nocturnal dyspnea. No cough. Patient admitted through the Emergency department. 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 ABG showed a pH of 7.29 with PO2 of 79 at FiO2 of 32. ProBNP was 12,267 glucose was elevated 113. Patient has history smoking 1 pack x 55 years. Still smoking counselled to stop smoking. denies alcohol or drug abuse. 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 No children. Chest xray reported mild cardiomegaly no pulmonary or pleural changes. Echocardiogram reported right ventricular dilatation. ABG POC ABG pH 7.291 (7.35-7.45) L 10/08/19 17:53 POC ABG pO2 79 (80-105) L 10/08/19 17:53 POC ABG HCO3 34.2 (22-26 mml/L) 10/08/19 17:53 POC ABG Total CO2 36 (23-27mmol/L) 10/08/19 17:53 POC ABG O2 Sat 93 10/08/19 17:53 PCO2 not reported by the lab. FIO2 also not recorded. Past History Past Medical History: COPD, diabetes, hypertension, hyperlipidemia Past Surgical History: No surgical history Social history: , smoking. denies: alcohol abuse, prescription drug abus e, IV drug use Family history: hypertension Medications and Allergies Allergies Allergy/AdvReac Type Severity Reaction Status Date / Time No Known Allergies Allergy Verified 10/08/19 16:40 Home Medications Medication Instructions Recorded Confirmed Last Taken Type Amlodipine Besylate [Norvasc] 2.5 mg PO DAILY 10/08/19 10/08/19 Unknown History Aspirin [Aspirin BABY CHEW TAB] 81 mg PO QDAY 10/08/19 10/08/19 Unknown History Enalapril Maleate [Vasotec] 5 mg PO DAILY 10/08/19 10/08/19 Unknown History Metformin HCl [Metformin HCl ER] 500 mg PO BID 10/08/19 10/08/19 Unknown History Pravastatin Sodium [Pravastatin] 10 mg PO DAILY 10/08/19 10/08/19 Unknown History Active Meds: Active Medications Acetaminophen (Tylenol) 650 mg PO Q4H PRN PRN Reason: Pain MILD(1-3)/Fever >100.5/BAKER Albuterol/Ipratropium (Duoneb *Not For Prn Use*) 1 ampul IH Q6HRT [facility] Last Admin: 10/09/19 13:44 Dose: 1 ampul Documented by: Aspirin (Baby Aspirin) 81 mg PO QDAY [facility] Last Admin: 10/09/19 10:37 Dose: 81 mg Documented by: Atorvastatin Calcium (Lipitor) 20 mg PO QHS [facility] Last Admin: 10/08/19 23:12 Dose: 20 mg Documented by: Budesonide (Pulmicort) 0.5 mg IH Q12HRT [facility] Last Admin: 10/09/19 07:54 Dose: 0.5 mg Documented by: Docusate Sodium (Colace) 100 mg PO BID [facility] Last Admin: 10/09/19 10:37 Dose: 100 mg Documented by: Enoxaparin Sodium (Enoxaparin) 40 mg SUB-Q QDAY@1000 [facility] Last Admin: 10/09/19 10:38 Dose: 40 mg Documented by: Famotidine (Pepcid) 20 mg IV BID [facility] Last Admin: 10/09/19 10:37 Dose: 20 mg Documented by: Furosemide (Lasix) 40 mg IV BID [facility] Levofloxacin/Dextrose (Levaquin 500mg/100ml) 500 mg in 100 mls @ 100 mls/hr IV Q24HR [facility]; Protocol Last Admin: 10/09/19 10:44 Dose: 100 mls/hr Documented by: Losartan Potassium (Cozaar) 25 mg PO QDAY [facility] Last Admin: 10/09/19 10:37 Dose: 25 mg Documented by: Metoprolol Tartrate (Metoprolol) 12.5 mg PO BID [facility] Ondansetron HCl (Zofran) 4 mg IV Q8H PRN PRN Reason: Nausea And Vomiting Sodium Chloride (Sodium Chloride Flush Syringe 10 Ml) 10 ml IV BID [facility] Last Admin: 10/09/19 10:38 Dose: 10 ml Documented by: Sodium Chloride (Sodium Chloride Flush Syringe 10 Ml) 10 ml IV PRN PRN PRN Reason: LINE FLUSH Review of Systems All systems: negative Physical Examination Vital signs: Vital Signs Pulse Resp 99 H 23 10/08/19 16:58 10/08/19 16:58 General appearance: alert, other (Mild respiratory distress at rest.) Eyes: non-icteric ENT: oropharynx moist Neck: supple, no JVD Ascultation: Bilateral: diminished breath sounds, other (Prolonged expiratory phase.) Cardiovascular: regular rate and rhythm Gastrointestinal: normoactive bowel sounds, soft, non-tender Integumentary: normal Extremities: no cyanosis, edema Musculoskeletal: no deformities Gait: other (Unable to evaluate at this stage.) normal mental status, non-focal exam, pupils equal and round, CN II-XII normal anxious Results - Laboratory Findings CBC and BMP: 10/09/19 03:22 10/09/19 03:22 ABG POC ABG pH 7.291 (7.35-7.45) L 10/08/19 17:53 POC ABG pO2 79 (80-105) L 10/08/19 17:53 POC ABG HCO3 34.2 (22-26 mml/L) 10/08/19 17:53 POC ABG Total CO2 36 (23-27mmol/L) 10/08/19 17:53 POC ABG O2 Sat 93 10/08/19 17:53 PT/INR, D-dimer PT 14.2 Sec. (12.2-14.9) 10/08/19 18:41 INR 1.11 (0.87-1.13) 10/08/19 18:41 Abnormal lab findings: Abnormal Labs 10/08/19 10/08/19 10/08/19 16:56 16:56 16:56 WBC Hgb 15.2 H Hct 47.9 H RDW 15.7 H [place] % (Auto) 7.8 H Lymph # 1.1 L POC ABG pH POC ABG pO2 Sodium 136 L Potassium 5.5 H Chloride 94.4 L Carbon Dioxide BUN 29 H Glucose 113 H Hemoglobin A1c NT-Pro-B Natriuret Pep 18385 H Albumin TSH 11/07/19 11/07/19 11/08/19 17:53 18:41 03:22 WBC 3.8 L Hgb Hct RDW 15.8 H [place] % (Auto) 14.3 H Lymph # 1.1 L POC ABG pH 7.291 L POC ABG pO2 79 L Sodium Potassium Chloride Carbon Dioxide BUN Glucose Hemoglobin A1c NT-Pro-B Natriuret Pep Albumin TSH 4.560 H 10/09/19 10/09/19 03:22 03:22 WBC Hgb Hct RDW [place] % (Auto) Lymph # POC ABG pH POC ABG pO2 Sodium Potassium 5.1 H Chloride 97.5 L Carbon Dioxide 34 H D BUN 30 H Glucose Hemoglobin A1c 6.9 H NT-Pro-B Natriuret Pep Albumin 3.8 L TSH - Diagnostic Findings Chest x-ray: report reviewed (REPORTED MILD CARDIOMEGALY, NO PULMONARY AND PLEURAL CHANGES.), image reviewed Assessment and Plan Patient is 78-year-old female who has a history of COPD and current tobacco user, swelling of the both lower extremities. Patient was continued on bronchodilators and placed on diuretics. While at the cardiology office 10/08/19 patient was having increasing shortness of breath. She has bilateral pedal edema. Denies any chest pain. Has orthopnea with proximal nocturnal dyspnea. No cough. Patient admitted through the Emergency department. 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 ABG showed a pH of 7.29 with PO2 of 79 at FiO2 of 32. ProBNP was 12,267 glucose was elevated 113. Patient has history smoking 1 pack x 55 years. Still smoking counselled to stop smoking. denies alcohol or drug abuse. 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 No children. Chest xray reported mild cardiomegaly no pulmonary or pleural changes. Echocardiogram reported right ventricular dilatation. ABG POC ABG pH 7.291 (7.35-7.45) L 10/08/19 17:53 POC ABG pO2 79 (80-105) L 10/08/19 17:53 POC ABG HCO3 34.2 (22-26 mml/L) 10/08/19 17:53 POC ABG Total CO2 36 (23-27mmol/L) 10/08/19 17:53 POC ABG O2 Sat 93 10/08/19 17:53 PCO2 not reported by the lab. FIO2 also not recorded. - Patient Problems (1) Cor pulmonale Current Visit: Yes Status: Acute Plan to address problem: O2 2 litres via nasal canula. Albuterol/atrovent aerosol treatments q 6 hours. Recommend I/V solumedrol. Patient is on Levaquin. Continue S/C Lovenox. Continue famotidine. If gets more shortness of breath ,Place her on BIPAP. (2) Severe pulmonary arterial systolic hypertension Current Visit: Yes Status: Acute Plan to address problem: Likely secondary to COPD. Management is treating COPD and O2 supplementation. (3) COPD (chronic obstructive pulmonary disease) Current Visit: Yes Status: Chronic Plan to address problem: O2 2 litres via nasal canula. Albuterol/atrovent aerosol treatments q 6 hours. Recommend I/V solumedrol. Patient is on Levaquin. Continue S/C Lovenox. Continue famotidine. If gets more shortness of breath ,Place her on BIPAP. (4) Acute heart failure with preserved ejection fraction Current Visit: Yes Status: Acute Plan to address problem: Management as per cardiology. (5) NSVT (nonsustained ventricular tachycardia) Current Visit: Yes Status: Acute Plan to address problem: Management as per cardiology. (6) Diabetes Current Visit: Yes Status: Chronic Plan to address problem: Management as per primary care. (7) HTN (hypertension) Current Visit: Yes Status: Chronic Plan to address problem: Management as per primary care. (8) Hyperlipemia Current Visit: Yes Status: Chronic Plan to address problem: Management as per primary care. (9) Tobacco use Current Visit: Yes Status: Chronic Plan to address problem: Counselled to stop smoking.
[2019-10-09] MEDS: METOPROLOL TARTRATE 25 MG TAB PO SCH (21:11)
[2019-10-10] MEDS: IPRATROPIUM/ALBUTEROL SULFATE 3 ML AMPUL.NEB IH SCH ×4 (01:40→22:11)
[2019-10-10 04:36] LABS: Basophils % (Auto) 1.1 % (0.0-1.8); Eosinophils % (Auto) 0.4 % (0.0-4.3); Hemoglobin 13.9 gm/dl (10.1-14.3); Lymphocytes # (Auto) 0.9 K/mm3 (1.2-5.4); Lymphocytes % (Auto) 24.8 % (13.4-35.0); Mean Corpuscular HGB Conc 32 % (30-34); Mean Corpuscular Volume 96 fl (79-97); Monocytes # (Auto) 0.3 K/mm3 (0.0-0.8); Monocytes % (Auto) 8.9 % (0.0-7.3); Platelet Count 206 K/mm3 (140-440); Red Blood Count 4.49 M/mm3 (3.65-5.03)
[2019-10-10 05:10] LABS: Alanine Aminotransferase 17 units/L (7-56); Albumin 3.4 g/dL (3.9-5); BUN/Creatinine Ratio 36; Blood Urea Nitrogen 32 mg/dL (7-17); Calcium 8.5 mg/dL (8.4-10.2); Hemolysis Index 4
[2019-10-10] MEDS: BUDESONIDE 0.5 MG/2 ML NEBU IH SCH ×2 (07:44→22:12)
--- NOTE | 2019-10-10 08:41 | Progress Note ---
Assessment and Plan Cor pulmonale Severe pulmonary arterial systolic hypertension COPD (chronic obstructive pulmonary disease) Acute heart failure with preserved ejection fraction NSVT (nonsustained ventricular tachycardia) Diabetes HTN (hypertension) Hyperlipemia Tobacco use (Patient's MAP's have dropped over the past few readings; she will benefit from transfer to a center with a pulmonary HTN program and likely also from inotropic support) - stop Lasix - continue supplemental oxygen for target O2 sats > 90% - hold Losaartan - conservative volume management - qhs BIPAP support for it's saluatry cardiovascular effects - complete empiric Levaquin - continue G.I. & VTE prophylaxis - if blood pressure does not rebound off Lasix will place central access and begin inotropic support - continue other care per attending / other consultants - transfer to ICU CONDITION: CRITICAL PROGNOSIS: GUARDED CODE STATUS: FULL CODE The high probability of a clinically significant, sudden or life-threatening deterioration of the [respiratory & cardiovascular] system(s) required my full and direct attention, intervention and personal management. The aggregate critical care time was [35] minutes without overlap. Time includes spent on; [x] Data Review and interpretation [x] Patient assessment and monitoring of vital signs [x] Documentation [x] Medication orders and management Subjective Date of service: 10/10/19 Principal diagnosis: Cor pulmonale; Severe PAH; COPD; Acute HFpEF; NSVT; Tobacco use Interval history: Patient is seen today for: Cor pulmonale; Severe pulmonary arterial systolic hypertension; COPD; Acute HFpEF; NSVT; Diabetes Type II; HTN; Hyperlipemia; Tobacco use Seen and examined at bedside; 24hour events reviewed; nursing and respiratory care staff consulted; no adverse overnight events reported to me; sitting on side of bed; remains on supplemental oxygen; denies acute chest pains or palpitations; No N/V/F/C; + GOMEZ but no exertional syncope Objective Vital Signs - 12hr 10/09/19 10/09/19 10/09/19 21:08 21:26 22:00 Temperature Pulse Rate Pulse Rate [ 96 H Bases] Respiratory Rate Respiratory 16 Rate [Bases] Blood Pressure O2 Sat by Pulse 96 96 Oximetry 10/10/19 10/10/19 10/10/19 01:19 05:42 06:33 Temperature 98.4 F 98.1 F 97.9 F Pulse Rate 90 90 85 Pulse Rate [ Bases] Respiratory 18 18 18 Rate Respiratory Rate [Bases] Blood Pressure 88/56 68/34 79/34 O2 Sat by Pulse 77 L 77 L 95 Oximetry 10/10/19 07:49 Temperature 98.1 F Pulse Rate Pulse Rate [ Bases] Respiratory 18 Rate Respiratory Rate [Bases] Blood Pressure 102/59 O2 Sat by Pulse Oximetry Constitutional: alert, appears uncomfortable, other (elderly looking AAF with mild respiratory distress at rest.) Eyes: non-icteric ENT: oropharynx moist Neck: supple, no JVD Effort: mildly labored Ascultation: Bilateral: diminished breath sounds, other (Prolonged expiratory phase.) Percussion: Bilateral: not dull Cardiovascular: regular rate and rhythm Gastrointestinal: normoactive bowel sounds, soft, non-tender, non-distended Integumentary: normal Extremities: no cyanosis, edema (2+) Neurologic: normal mental status, non-focal exam, pupils equal and round, CN II- XII normal Psychiatric: anxious CBC and BMP: 10/10/19 03:35 10/10/19 03:35 ABG, PT/INR, D-dimer: ABG POC ABG pH 7.291 (7.35-7.45) L 10/08/19 17:53 POC ABG pO2 79 (80-105) L 10/08/19 17:53 POC ABG HCO3 34.2 (22-26 mml/L) 10/08/19 17:53 POC ABG Total CO2 36 (23-27mmol/L) 10/08/19 17:53 POC ABG O2 Sat 93 10/08/19 17:53 PT/INR, D-dimer PT 14.2 Sec. (12.2-14.9) 10/08/19 18:41 INR 1.11 (0.87-1.13) 10/08/19 18:41 Abnormal lab findings: Abnormal Labs 10/08/19 10/08/19 10/08/19 16:56 16:56 16:56 WBC Hgb 15.2 H Hct 47.9 H RDW 15.7 H [place] % (Auto) 7.8 H Lymph # 1.1 L POC ABG pH POC ABG pO2 Sodium 136 L Potassium 5.5 H Chloride 94.4 L Carbon Dioxide BUN 29 H Glucose 113 H Hemoglobin A1c NT-Pro-B Natriuret Pep 30343 H Albumin TSH 10/08/19 10/08/19 10/09/19 17:53 18:41 03:22 WBC 3.8 L Hgb Hct RDW 15.8 H [place] % (Auto) 14.3 H Lymph # 1.1 L POC ABG pH 7.291 L POC ABG pO2 79 L Sodium Potassium Chloride Carbon Dioxide BUN Glucose Hemoglobin A1c NT-Pro-B Natriuret Pep Albumin TSH 4.560 H 10/09/19 10/09/19 10/10/19 03:22 03:22 03:35 WBC 3.6 L Hgb Hct 43.0 H RDW 16.0 H [place] % (Auto) 8.9 H Lymph # 0.9 L POC ABG pH POC ABG pO2 Sodium Potassium 5.1 H Chloride 97.5 L Carbon Dioxide 34 H D BUN 30 H Glucose Hemoglobin A1c 6.9 H NT-Pro-B Natriuret Pep Albumin 3.8 L TSH 10/10/19 03:35 WBC Hgb Hct RDW [place] % (Auto) Lymph # POC ABG pH POC ABG pO2 Sodium Potassium Chloride 93.4 L Carbon Dioxide 34 H BUN 32 H Glucose 114 H Hemoglobin A1c NT-Pro-B Natriuret Pep Albumin 3.4 L TSH Chest x-ray: image reviewed (gross cardiomegaly no overt pulm edema) Allied health notes reviewed: nursing
[2019-10-10] MEDS: FUROSEMIDE 40 MG/4 ML INJ IV SCH (10:19)
[2019-10-10] MEDS: METOPROLOL TARTRATE 25 MG TAB PO SCH (10:19)
[2019-10-10] MEDS: LOSARTAN 25 MG TAB PO SCH (10:20)
[2019-10-10] MEDS: ASPIRIN 81 MG TAB CHEW PO SCH (10:20)
[2019-10-10] MEDS: ENOXAPARIN 40 MG/0.4 ML INJ SUB-Q SCH (10:20)
[2019-10-10] MEDS: DOCUSATE SODIUM 100 MG CAP PO SCH ×2 (10:20→21:20)
[2019-10-10] MEDS: FAMOTIDINE 20 MG/2 ML INJ IV SCH ×2 (10:20→21:20)
--- NOTE | 2019-10-10 10:51 | Progress Note ---
Assessment and Plan Patient is 78-year-old female who has a history of COPD and current tobacco user, presented to my office about 2 weeks ago with swelling of the both lower extremities. Chest x-ray and CT scan were ordered as well as Echocardiogram. Patient was continued on bronchodilators and placed on diuretics. While at the cardiology office today, 10/08/19 patient was having increasing shortness of breath. I was contacted for further evaluation as her PCP. While in my office patient was found to have progressive shortness of breath with hypoxia. She has bilateral pedal edema. Denies any chest pain. Has orthopnea with proximal nocturnal dyspnea. No cough. Admission was therefore requested through the Emergency department. 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 ABG showed a pH of 7.29 with PO2 of 79 at FiO2 of 32. ProBNP was 12,267 glucose was elevated 113. -Acute on chronic respiratory failure with hypoxia and hypercapnia Cont with bronchodilators with albuterol and Atrovent neb, Brovana and Symbicort IV Solu-Medrol IV Levaquin Supplemental oxygen Pulmonary consulted - COPD with acute exacerbation Bronchodilators with supple. oxygen IV Solu-Medrol IV antibiotics - Cor pulmonale diuresis - Heart failure with preserved EF Strict I's and O's, Daily weights 2 Gram sodium diet EKG showed RBBB with evidence of old [place] [address]83, Echocardiogram showed HFpEF of 55-60% markedly dilated RV, markedly dilated RA, severe TR, and sign. Pulm HTN Commence patient on iv Furosemide, ACEI, will hold beta blockers because of acute respiratory failure, Continue with Statins, Cardiology following - Hyperkalemia - corrected Recheck potassium level - Abnormal TSH but normal T4 level - T2DM A1c 6.9% SSI Consistent CHO diet - Tobacco use disorder Tobacco cessation counseling was done - DVT prophylaxis with Lovenox and GI with Pepcid - CODE STATUS: Discussed CODE STATUS with the patient who is was very lucid. Stated that she is full code Time spent: 30 minutes Subjective Date of service: 10/10/19 Principal diagnosis: Ac.on chr respiratory failure with hypoxia and hypercap, acute sytolic HF, Interval history: Still short of breath with dre pitting pedal edema. No chest pain Objective - Exam Narrative Exam: Constitutional: Well-nourished well-developed. In no distress Head: Normocephalic atraumatic Eyes: Pupils are equal round and reactive to light Nose: No enlarged turbinates, no septal deviation. Mouth: Moist mucous membranes. Neck: Supple no thyromegaly. No bruit. Has JVD Heart: Regular rate and rhythm, S1-S2 with S3. No rubs murmurs Lungs: Decreased breath sounds bilaterally. no rales or rhonchi Abdomen: Soft, nontender. Bowel sound are present. Extremities: 3+ edema, no cyanosis, no clubbing. Neuro: Alert oriented Oriented x3. No focal sensory or motor deficit. Skin: No rashes or hyperpigmented spots Musculoskeletal system: No joint pain or swelling Hematological: No petechia or subcutanous hemorrhages. Immunological: No multiple septic spots on the skin Lymphatic: No generalized lymphadenopathy Psychiatry: Euthymic. Calm. - Constitutional Vitals: Vital Signs - 12hr 10/10/19 10/10/19 10/10/19 01:19 05:42 06:33 Temperature 98.4 F 98.1 F 97.9 F Pulse Rate 90 90 85 Respiratory 18 18 18 Rate Blood Pressure 88/56 68/34 79/34 O2 Sat by Pulse 77 L 77 L 95 Oximetry 10/10/19 07:49 Temperature 98.1 F Pulse Rate Respiratory 18 Rate Blood Pressure 102/59 O2 Sat by Pulse Oximetry - Labs CBC & Chem 7: 10/10/19 03:35 10/10/19 03:35 Labs: Abnormal lab results 10/09/19 10/10/19 10/10/19 Range/Units 03:22 03:35 03:35 WBC 3.6 L (4.5-11.0) K/mm3 Hct 43.0 H (30.3-42.9) % RDW 16.0 H (13.2-15.2) % [place] % (Auto) 8.9 H (0.0-7.3) % Lymph # 0.9 L (1.2-5.4) K/mm3 Chloride 93.4 L (98-107) mmol/L Carbon Dioxide 34 H (22-30) mmol/L BUN 32 H (7-17) mg/dL Glucose 114 H (65-100) mg/dL Hemoglobin A1c 6.9 H (4-6) % Albumin 3.4 L (3.9-5) g/dL
--- NOTE | 2019-10-10 11:58 | Progress Note ---
Assessment and Plan The patient's cardiac status is improving. Continue current management. Will not uptitrate metoprolol for NSVT d/t borderline blood pressures at this time. The patient has been seen in conjunction with Dr. Miller, who agrees with the assessment and plan. - Patient Problems (1) Acute heart failure with preserved ejection fraction Current Visit: Yes Status: Acute (2) NSVT (nonsustained ventricular tachycardia) Current Visit: Yes Status: Acute (3) RBBB Current Visit: Yes Status: Acute (4) Severe pulmonary arterial systolic hypertension Current Visit: Yes Status: Acute (5) COPD (chronic obstructive pulmonary disease) Current Visit: Yes Status: Chronic (6) Diabetes Current Visit: Yes Status: Chronic (7) HTN (hypertension) Current Visit: Yes Status: Chronic (8) Tobacco use Current Visit: Yes Status: Chronic Subjective Date of service: 10/10/19 Principal diagnosis: Ac.on chr respiratory failure with hypoxia and hypercap, acute sytolic HF, Interval history: The patient is sitting up in bed in NAD. She still requies supplemental oxygen via NC and BLE edema persists, but is improved. Telemetry reviewed - SR in 90s with NSVT noted. No UOP recorded, but patient reports significant voiding. Echocardiogram reviewed: EF 50 to 55 percent, severe TR, markedly dilated RA and RV, enlarged coronary sinus, significant pulmonary hypertension, echogenic structures in RV and LA, small hemodynamically insignificant pericardial effusion Objective Last Vital Signs Temp 98.1 F 10/10/19 07:49 Pulse 85 10/10/19 06:33 Resp 18 10/10/19 07:49 BP 102/59 10/10/19 07:49 Pulse Ox 95 10/10/19 06:33 - Physical Examination General: No Apparent Distress HEENT: Positive: PERRL, Normocephaly, Mucus Membranes Moist Neck: Positive: neck supple, trachea midline Cardiac: Positive: Reg Rate and Rhythm Lungs: Positive: Decreased Breath Sounds, Rales (left base) Neuro: Positive: Grossly Intact Abdomen: Positive: Unremarkable. Negative: Tender /Rectal: Other (deferred) Skin: Negative: Rash Musculoskeletal: No Pain Extremities: Present: +2 Edema (BLE) - Labs and Meds Cardiac Enzymes 10/10/19 Range/Units 03:35 AST 15 (5-40) units/L CBC 10/10/19 Range/Units 03:35 WBC 3.6 L (4.5-11.0) K/mm3 RBC 4.49 (3.65-5.03) M/mm3 Hgb 13.9 (10.1-14.3) gm/dl Hct 43.0 H (30.3-42.9) % Plt Count 206 (140-440) K/mm3 Lymph # 0.9 L (1.2-5.4) K/mm3 [place] # 0.3 (0.0-0.8) K/mm3 Eos # 0.0 (0.0-0.4) K/mm3 Baso # 0.0 (0.0-0.1) K/mm3 Comprehensive Metabolic Panel 10/10/19 Range/Units 03:35 Sodium 138 (137-145) mmol/L Potassium 4.5 (3.6-5.0) mmol/L Chloride 93.4 L (98-107) mmol/L Carbon Dioxide 34 H (22-30) mmol/L BUN 32 H (7-17) mg/dL Creatinine 0.9 (0.7-1.2) mg/dL Glucose 114 H (65-100) mg/dL Calcium 8.5 (8.4-10.2) mg/dL AST 15 (5-40) units/L ALT 17 (7-56) units/L Alkaline Phosphatase 50 (35-129) units/L Total Protein 6.4 (6.3-8.2) g/dL Albumin 3.4 L (3.9-5) g/dL - Imaging and Cardiology EKG: report reviewed, image reviewed Echo: report reviewed (10/08/19: EF 50-55%, severe TR, markedly dilated RA&RV, enlarged coronary sinus, significant pulm htn, echogenic structures in RV and LA, small pericardial effusion) - EKG Sinus rhythms and dysrhythmias: sinus rhythm AV and intraventricular conduction: right bundle branch block
[2019-10-11] MEDS: IPRATROPIUM/ALBUTEROL SULFATE 3 ML AMPUL.NEB IH SCH ×4 (02:32→21:19)
[2019-10-11 06:11] LABS: Hematocrit 44.5 % (30.3-42.9); Hemoglobin 14.4 gm/dl (10.1-14.3); Mean Corpuscular HGB Conc 32 % (30-34); Mean Corpuscular Volume 97 fl (79-97); Platelet Count 154 K/mm3 (140-440); Red Blood Count 4.59 M/mm3 (3.65-5.03); Red Cell Distribution Width 15.6 % (13.2-15.2)
[2019-10-11 06:16] LABS: Calcium 8.5 mg/dL (8.4-10.2)
--- NOTE | 2019-10-11 08:18 | Progress Note ---
Assessment and Plan Patient is 78-year-old female who has a history of COPD and current tobacco user, presented to my office about 2 weeks ago with swelling of the both lower extremities. Chest x-ray and CT scan were ordered as well as Echocardiogram. Patient was continued on bronchodilators and placed on diuretics. While at the cardiology office today, 10/08/19 patient was having increasing shortness of breath. I was contacted for further evaluation as her PCP. While in my office patient was found to have progressive shortness of breath with hypoxia. She has bilateral pedal edema. Denies any chest pain. Has orthopnea with proximal nocturnal dyspnea. No cough. Admission was therefore requested through the Emergency department. 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 ABG showed a pH of 7.29 with PO2 of 79 at FiO2 of 32. ProBNP was 12,267 glucose was elevated 113. -Acute on chronic respiratory failure with hypoxia and hypercapnia Cont with bronchodilators with albuterol and Atrovent neb, Brovana and Symbicort IV Solu-Medrol IV Levaquin Supplemental oxygen Pulmonary consulted - COPD with acute exacerbation Bronchodilators with supple. Oxygen IV Solu-Medrol IV antibiotics - Severe Pul Hypertension - Cor pulmonale diuresis - Heart failure with preserved EF Strict I's and O's, Daily weights 2 Gram sodium diet EKG showed RBBB with evidence of old [place] 29461, Echocardiogram showed HFpEF of 55-60% markedly dilated RV, markedly dilated RA, severe TR, and sign. Pulm HTN Commence patient on iv Furosemide, ACEI, will hold beta blockers because of acute respiratory failure, Continue with Statins, Cardiology following - Hyperkalemia - corrected Recheck potassium level - Abnormal TSH but normal T4 level - T2DM A1c 6.9% SSI Consistent CHO diet - Tobacco use disorder Tobacco cessation counseling was done - DVT prophylaxis with Lovenox and GI with Pepcid - CODE STATUS: Discussed CODE STATUS with the patient who is was very lucid. Stated that she is full code Time spent: 30 minutes Subjective Date of service: 10/11/19 Principal diagnosis: Cor pulmonale; Severe PAH; COPD; Acute HFpEF; NSVT; Tobacco use Interval history: Still short of breath with dre pitting pedal edema. No chest pain. still orthopneic Objective - Exam Narrative Exam: Constitutional: Well-nourished well-developed. In no distress Head: Normocephalic atraumatic Eyes: Pupils are equal round and reactive to light Nose: No enlarged turbinates, no septal deviation. Mouth: Moist mucous membranes. Neck: Supple no thyromegaly. No bruit. Has JVD Heart: Regular rate and rhythm, S1-S2 with S3. No rubs murmurs Lungs: Decreased breath sounds bilaterally. no rales or rhonchi Abdomen: Soft, nontender. Bowel sound are present. Extremities: 3+ edema, no cyanosis, no clubbing. Neuro: Alert oriented Oriented x3. No focal sensory or motor deficit. Skin: No rashes or hyperpigmented spots Musculoskeletal system: No joint pain or swelling Hematological: No petechia or subcutanous hemorrhages. Immunological: No multiple septic spots on the skin Lymphatic: No generalized lymphadenopathy Psychiatry: Euthymic. Calm. - Constitutional Vitals: Vital Signs - 12hr 10/10/19 10/10/19 10/10/19 20:11 20:13 20:30 Temperature 97.9 F Pulse Rate 75 Pulse Rate [ Anterior Bilateral Throughout] Pulse Rate [ 70 Apical] Respiratory 20 18 Rate Respiratory Rate [Anterior Bilateral Throughout] Respiratory Rate [ Generalized] Blood Pressure 85/40 O2 Sat by Pulse 97 99 Oximetry 10/10/19 10/10/19 10/10/19 21:29 22:00 22:10 Temperature Pulse Rate Pulse Rate [ 77 Anterior Bilateral Throughout] Pulse Rate [ Apical] Respiratory Rate Respiratory 18 Rate [Anterior Bilateral Throughout] Respiratory 18 Rate [ Generalized] Blood Pressure O2 Sat by Pulse 94 Oximetry 10/11/19 10/11/19 10/11/19 00:00 00:06 00:30 Temperature Pulse Rate 82 77 Pulse Rate [ Anterior Bilateral Throughout] Pulse Rate [ 78 Apical] Respiratory 16 14 15 Rate Respiratory Rate [Anterior Bilateral Throughout] Respiratory Rate [ Generalized] Blood Pressure 81/37 O2 Sat by Pulse 96 Oximetry 10/11/19 10/11/19 10/11/19 01:00 02:00 02:40 Temperature Pulse Rate 75 74 Pulse Rate [ 68 Anterior Bilateral Throughout] Pulse Rate [ Apical] Respiratory 13 15 Rate Respiratory 16 Rate [Anterior Bilateral Throughout] Respiratory Rate [ Generalized] Blood Pressure 59/23 81/37 O2 Sat by Pulse 92 91 Oximetry 10/11/19 10/11/19 10/11/19 03:00 03:08 03:40 Temperature 98.4 F Pulse Rate 76 76 Pulse Rate [ Anterior Bilateral Throughout] Pulse Rate [ Apical] Respiratory 16 12 Rate Respiratory Rate [Anterior Bilateral Throughout] Respiratory Rate [ Generalized] Blood Pressure 91/43 91/43 O2 Sat by Pulse 90 Oximetry 10/11/19 10/11/19 10/11/19 04:00 05:00 06:00 Temperature Pulse Rate 79 79 76 Pulse Rate [ Anterior Bilateral Throughout] Pulse Rate [ 77 Apical] Respiratory 13 15 11 L Rate Respiratory Rate [Anterior Bilateral Throughout] Respiratory Rate [ Generalized] Blood Pressure 78/39 84/39 90/46 O2 Sat by Pulse 94 80 L 97 Oximetry 10/11/19 07:00 Temperature Pulse Rate 79 Pulse Rate [ Anterior Bilateral Throughout] Pulse Rate [ Apical] Respiratory 18 Rate Respiratory Rate [Anterior Bilateral Throughout] Respiratory Rate [ Generalized] Blood Pressure 93/46 O2 Sat by Pulse 94 Oximetry - Labs CBC & Chem 7: 10/11/19 04:53 10/11/19 04:53 Labs: Abnormal lab results 10/11/19 10/11/19 Range/Units 04:53 04:53 Hgb 14.4 H (10.1-14.3) gm/dl Hct 44.5 H (30.3-42.9) % RDW 15.6 H (13.2-15.2) % Sodium 135 L (137-145) mmol/L Potassium 5.1 H (3.6-5.0) mmol/L Chloride 92.6 L (98-107) mmol/L Carbon Dioxide 32 H (22-30) mmol/L BUN 40 H (7-17) mg/dL Creatinine 1.4 H D (0.7-1.2) mg/dL Glucose 102 H (65-100) mg/dL Total Protein 5.9 L (6.3-8.2) g/dL Albumin 3.0 L (3.9-5) g/dL
[2019-10-11] MEDS: BUDESONIDE 0.5 MG/2 ML NEBU IH SCH ×2 (08:30→21:19)
[2019-10-11] MEDS ORDERED: FUROSEMIDE 40 MG/4 ML INJ IV SCH (10:00)
[2019-10-11] MEDS: ASPIRIN 81 MG TAB CHEW PO SCH (10:00)
[2019-10-11] MEDS: LOSARTAN 25 MG TAB PO SCH (10:00)
[2019-10-11] MEDS: DOCUSATE SODIUM 100 MG CAP PO SCH ×2 (10:00→21:03)
[2019-10-11] MEDS: FAMOTIDINE 20 MG/2 ML INJ IV SCH ×2 (10:00→21:03)
[2019-10-11] MEDS: ENOXAPARIN 40 MG/0.4 ML INJ SUB-Q SCH (10:00)
--- NOTE | 2019-10-11 12:35 | XRay Report ---
CHEST 1 VIEW INDICATION / CLINICAL INFORMATION: Chest pain COMPARISON: None available. FINDINGS: SUPPORT DEVICES: Right arm PICC line terminates near the SVC/right atrial junction.. HEART / MEDIASTINUM: Mild cardiomegaly. LUNGS / PLEURA: Patchy bibasilar airspace density and small right pleural effusion. Signer Name: Abiel Desai MD Signed: 10/11/2019 12:30 PM Workstation Name: [id number]
--- NOTE | 2019-10-11 14:43 | Progress Note ---
Assessment and Plan Cor pulmonale Severe pulmonary arterial systolic hypertension COPD (chronic obstructive pulmonary disease) Acute heart failure with preserved ejection fraction NSVT (nonsustained ventricular tachycardia) Diabetes HTN (hypertension) Hyperlipemia Tobacco use (Discussed with [facility] HTN executive team leader and they will evaluate for transfer) - add vasopressin - continue fixed dose Dobutamine at 5 keiry's/kg/min - watch off diuretics acutely - continue supplemental oxygen for target O2 sats > 90% - continue to hold Losaartan - continue conservative volume management strategies - continue qhs BIPAP support for it's saluatry cardiovascular effects - complete empiric Levaquin - continue G.I. & VTE prophylaxis - continue other care per attending / other consultants .... re-evaluate in am & prn CONDITION: CRITICAL PROGNOSIS: GUARDED CODE STATUS: FULL CODE The high probability of a clinically significant, sudden or life-threatening deterioration of the [respiratory & cardiovascular] system(s) required my full and direct attention, intervention and personal management. The aggregate critical care time was [38] minutes without overlap. Time includes spent on; [x] Data Review and interpretation [x] Patient assessment and monitoring of vital signs [x] Documentation [x] Medication orders and management Subjective Date of service: 10/11/19 Principal diagnosis: Cor pulmonale; Severe PAH; COPD; Acute HFpEF; NSVT; Tobacco use Interval history: Patient is seen today for: Cor pulmonale; Severe pulmonary arterial systolic hypertension; COPD; Acute HFpEF; NSVT; Diabetes Type II; HTN; Hyperlipemia; Tobacco use Seen and examined at bedside; 24hour events reviewed; nursing and respiratory care staff consulted; no adverse overnight events reported to me; resting in bed; remains on supplemental oxygen; on dobutamine drip but MAP's still low; clinically no overt AMS; No N/V/F/C; denies avute chest pains or palpitations Objective Vital Signs - 12hr 10/11/19 10/11/19 10/11/19 03:00 03:08 03:40 Temperature 98.4 F Pulse Rate 76 76 Pulse Rate [ Anterior Bilateral Throughout] Pulse Rate [ Apical] Respiratory 16 12 Rate Respiratory Rate [Anterior Bilateral Throughout] Blood Pressure 91/43 91/43 O2 Sat by Pulse 90 Oximetry 10/11/19 10/11/19 10/11/19 04:00 05:00 06:00 Temperature Pulse Rate 79 79 76 Pulse Rate [ Anterior Bilateral Throughout] Pulse Rate [ 77 Apical] Respiratory 13 15 11 L Rate Respiratory Rate [Anterior Bilateral Throughout] Blood Pressure 78/39 84/39 90/46 O2 Sat by Pulse 94 80 L 97 Oximetry 10/11/19 10/11/19 10/11/19 07:00 08:00 08:30 Temperature Pulse Rate 79 85 Pulse Rate [ Anterior Bilateral Throughout] Pulse Rate [ 82 Apical] Respiratory 18 24 Rate Respiratory Rate [Anterior Bilateral Throughout] Blood Pressure 93/46 92/52 O2 Sat by Pulse 94 94 94 Oximetry 10/11/19 10/11/19 10/11/19 08:31 09:00 10:00 Temperature Pulse Rate 83 88 Pulse Rate [ 79 Anterior Bilateral Throughout] Pulse Rate [ Apical] Respiratory 17 Rate Respiratory 18 Rate [Anterior Bilateral Throughout] Blood Pressure 93/46 82/44 O2 Sat by Pulse 81 L Oximetry 10/11/19 14:22 Temperature Pulse Rate Pulse Rate [ 88 Anterior Bilateral Throughout] Pulse Rate [ Apical] Respiratory Rate Respiratory 20 Rate [Anterior Bilateral Throughout] Blood Pressure O2 Sat by Pulse Oximetry Constitutional: alert, appears uncomfortable, other (elderly looking AAF with mild respiratory distress at rest.) Eyes: non-icteric ENT: oropharynx moist Neck: supple, no JVD Effort: mildly labored Ascultation: Bilateral: diminished breath sounds, other (Prolonged expiratory phase.) Percussion: Bilateral: not dull Cardiovascular: regular rate and rhythm Gastrointestinal: normoactive bowel sounds, soft, non-tender, non-distended Integumentary: normal Extremities: no cyanosis, edema (2+) Neurologic: normal mental status, non-focal exam, pupils equal and round, CN II- XII normal Psychiatric: mood appropriate, affect normal CBC and BMP: 10/11/19 04:53 10/11/19 04:53 ABG, PT/INR, D-dimer: ABG POC ABG pH 7.291 (7.35-7.45) L 10/08/19 17:53 POC ABG pO2 79 (80-105) L 10/08/19 17:53 POC ABG HCO3 34.2 (22-26 mml/L) 10/08/19 17:53 POC ABG Total CO2 36 (23-27mmol/L) 10/08/19 17:53 POC ABG O2 Sat 93 10/08/19 17:53 PT/INR, D-dimer PT 14.2 Sec. (12.2-14.9) 10/08/19 18:41 INR 1.11 (0.87-1.13) 10/08/19 18:41 Abnormal lab findings: Abnormal Labs 10/08/19 10/08/19 10/08/19 16:56 16:56 16:56 WBC Hgb 15.2 H Hct 47.9 H RDW 15.7 H [place] % (Auto) 7.8 H Lymph # 1.1 L POC ABG pH POC ABG pO2 Sodium 136 L Potassium 5.5 H Chloride 94.4 L Carbon Dioxide BUN 29 H Creatinine Glucose 113 H Hemoglobin A1c NT-Pro-B Natriuret Pep 83107 H Total Protein Albumin TSH 10/08/19 10/08/19 10/09/19 17:53 18:41 03:22 WBC 3.8 L Hgb Hct RDW 15.8 H [place] % (Auto) 14.3 H Lymph # 1.1 L POC ABG pH 7.291 L POC ABG pO2 79 L Sodium Potassium Chloride Carbon Dioxide BUN Creatinine Glucose Hemoglobin A1c NT-Pro-B Natriuret Pep Total Protein Albumin TSH 4.560 H 10/09/19 10/09/19 10/10/19 03:22 03:22 03:35 WBC 3.6 L Hgb Hct 43.0 H RDW 16.0 H [place] % (Auto) 8.9 H Lymph # 0.9 L POC ABG pH POC ABG pO2 Sodium Potassium 5.1 H Chloride 97.5 L Carbon Dioxide 34 H D BUN 30 H Creatinine Glucose Hemoglobin A1c 6.9 H NT-Pro-B Natriuret Pep Total Protein Albumin 3.8 L TSH 10/10/19 10/11/19 10/11/19 03:35 04:53 04:53 WBC Hgb 14.4 H Hct 44.5 H RDW 15.6 H [place] % (Auto) Lymph # POC ABG pH POC ABG pO2 Sodium 135 L Potassium 5.1 H Chloride 93.4 L 92.6 L Carbon Dioxide 34 H 32 H BUN 32 H 40 H Creatinine 1.4 H D Glucose 114 H 102 H Hemoglobin A1c NT-Pro-B Natriuret Pep Total Protein 5.9 L Albumin 3.4 L 3.0 L TSH Chest x-ray: image reviewed (new Right PICC line) Allied health notes reviewed: nursing
[2019-10-11] MEDS ORDERED: DOBUTamine/D5W 500 MG/250 ML 500 MG/250 ML BAG IV SCH (15:00)
[2019-10-11] MEDS: VASOPRESSIN 20 UNIT in SODIUM CHLORIDE 0.9% 100 ML IV SCH (17:26)
[2019-10-12] MEDS: IPRATROPIUM/ALBUTEROL SULFATE 3 ML AMPUL.NEB IH SCH ×3 (02:08→13:59)
[2019-10-12 05:14] LABS: Basophils % (Auto) 0.9 % (0.0-1.8); Eosinophils % (Auto) 0.2 % (0.0-4.3); Hematocrit 37.2 % (30.3-42.9); Hemoglobin 12.2 gm/dl (10.1-14.3); Lymphocytes # (Auto) 0.8 K/mm3 (1.2-5.4); Lymphocytes % (Auto) 18.4 % (13.4-35.0); Mean Corpuscular HGB Conc 33 % (30-34); Mean Corpuscular Volume 95 fl (79-97); Monocytes # (Auto) 0.4 K/mm3 (0.0-0.8); Monocytes % (Auto) 9.8 % (0.0-7.3); Platelet Count 147 K/mm3 (140-440)
[2019-10-12 05:38] LABS: Alanine Aminotransferase 12 units/L (7-56); Albumin 3.3 g/dL (3.9-5); BUN/Creatinine Ratio 40; Blood Urea Nitrogen 28 mg/dL (7-17); Calcium 8.5 mg/dL (8.4-10.2); Hemolysis Index 0
[2019-10-12] MEDS: BUDESONIDE 0.5 MG/2 ML NEBU IH SCH (07:41)
--- NOTE | 2019-10-12 08:21 | Progress Note ---
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 and they will accept in transfer th is morning, once a bed is available Discussed with primary Attending, discharge care plan Discussed in ICU-IDT rounds - continue vasopressin - continue fixed dose Dobutamine at 5 mics/kg/min - give one dose of furosemide 20mg, monitor hemodynamics, renal function and electrolytes closely -give one dose of Magnesium - continue supplemental oxygen for target O2 sats > 90% - continue to hold Losartan - continue conservative volume management strategies - continue qhs BIPAP - complete empiric Levaquin - continue VTE prophylaxis -Smoking cessation counselling done at the bedside. -Keep Potassium at 4 and Magnesium at 2 -Nutritional support -Mobility and off loading, patient is at high risk for pressure ulcers - continue other care per attending / other consultants CONDITION: CRITICAL PROGNOSIS: GUARDED CODE STATUS: FULL CODE The high probability of a clinically significant, sudden or life-threatening deterioration of the [respiratory & cardiovascular] system(s) required my full and direct attention, intervention and personal management. The aggregate critical care time was [35] minutes without overlap. Time includes spent on; [x] Data Review and interpretation [x] Patient assessment and monitoring of vital signs [x] Documentation [x] Medication orders and management Subjective Date of service: 10/12/19 Principal diagnosis: Cor pulmonale; Severe PAH; COPD; Acute HFpEF; NSVT; Tobacco use Interval history: Patient is seen today for: Cor pulmonale; Severe pulmonary arterial systolic hypertension; COPD; Acute HFpEF; NSVT; Diabetes Type II; HTN; Hyperlipemia; Tobacco use Seen and examined at bedside; 24hour events reviewed; nursing and respiratory care staff consulted; no adverse overnight events reported to me; resting in bed; remains on supplemental oxygen; on dobutamine drip and vasopressin ; No N/V/F/C; denies acute chest pains or palpitations, feels a little more short of breath this morning. Made 600ml of urine overnight, per RN she tried to "wean off vasopressin" with acute drop ion BP and MAP. Objective Vital Signs - 12hr 10/11/19 10/11/19 10/11/19 21:00 21:20 21:35 Temperature Pulse Rate 94 H Pulse Rate [ 90 Anterior Bilateral Throughout] Pulse Rate [ Apical] Pulse Rate [ Bases] Respiratory 21 Rate Respiratory 18 Rate [Anterior Bilateral Throughout] Respiratory Rate [Bases] Blood Pressure 119/51 O2 Sat by Pulse 91 92 Oximetry 10/11/19 10/11/19 10/11/19 22:00 23:00 23:16 Temperature Pulse Rate 89 97 H 88 Pulse Rate [ Anterior Bilateral Throughout] Pulse Rate [ Apical] Pulse Rate [ Bases] Respiratory 19 28 H 13 Rate Respiratory Rate [Anterior Bilateral Throughout] Respiratory Rate [Bases] Blood Pressure 130/72 132/78 132/78 O2 Sat by Pulse 94 61 L 90 Oximetry 10/12/19 10/12/19 10/12/19 00:00 01:00 01:05 Temperature 98.6 F Pulse Rate 98 H 105 H 114 H Pulse Rate [ Anterior Bilateral Throughout] Pulse Rate [ 98 H Apical] Pulse Rate [ Bases] Respiratory 14 17 22 Rate Respiratory Rate [Anterior Bilateral Throughout] Respiratory Rate [Bases] Blood Pressure 140/61 121/53 121/53 O2 Sat by Pulse 92 96 Oximetry 10/12/19 10/12/19 10/12/19 01:30 02:00 02:20 Temperature Pulse Rate 108 H 98 H Pulse Rate [ 93 H Anterior Bilateral Throughout] Pulse Rate [ Apical] Pulse Rate [ Bases] Respiratory 17 13 Rate Respiratory 18 Rate [Anterior Bilateral Throughout] Respiratory Rate [Bases] Blood Pressure 121/53 121/53 O2 Sat by Pulse 97 95 Oximetry 10/12/19 10/12/19 10/12/19 02:30 03:00 03:30 Temperature Pulse Rate 89 91 H 88 Pulse Rate [ Anterior Bilateral Throughout] Pulse Rate [ Apical] Pulse Rate [ Bases] Respiratory 17 24 14 Rate Respiratory Rate [Anterior Bilateral Throughout] Respiratory Rate [Bases] Blood Pressure 116/49 125/53 134/69 O2 Sat by Pulse 98 95 96 Oximetry 10/12/19 10/12/19 10/12/19 04:00 04:30 05:00 Temperature 97.5 F L Pulse Rate 102 H 95 H 90 Pulse Rate [ Anterior Bilateral Throughout] Pulse Rate [ 102 H Apical] Pulse Rate [ Bases] Respiratory 15 25 H 18 Rate Respiratory Rate [Anterior Bilateral Throughout] Respiratory Rate [Bases] Blood Pressure 119/57 120/50 121/50 O2 Sat by Pulse 95 94 94 Oximetry 11/10/2010/12/19 10/12/19 05:30 05:59 06:00 Temperature Pulse Rate 94 H 93 H 92 H Pulse Rate [ Anterior Bilateral Throughout] Pulse Rate [ Apical] Pulse Rate [ Bases] Respiratory 31 H 14 18 Rate Respiratory Rate [Anterior Bilateral Throughout] Respiratory Rate [Bases] Blood Pressure 130/58 122/58 122/58 O2 Sat by Pulse 93 97 95 Oximetry 10/12/19 10/12/19 10/12/19 06:30 07:00 07:41 Temperature Pulse Rate 85 Pulse Rate [ 97 H Anterior Bilateral Throughout] Pulse Rate [ Apical] Pulse Rate [ 90 Bases] Respiratory 17 Rate Respiratory 18 Rate [Anterior Bilateral Throughout] Respiratory 18 Rate [Bases] Blood Pressure 137/59 126/59 O2 Sat by Pulse 94 95 Oximetry 10/12/19 10/12/19 07:42 08:15 Temperature 96.8 F L Pulse Rate Pulse Rate [ Anterior Bilateral Throughout] Pulse Rate [ Apical] Pulse Rate [ Bases] Respiratory Rate Respiratory Rate [Anterior Bilateral Throughout] Respiratory Rate [Bases] Blood Pressure O2 Sat by Pulse 95 Oximetry Constitutional: alert, appears uncomfortable, other (elderly looking AAF with moderate respiratory distress at rest.) Eyes: non-icteric ENT: oropharynx moist Neck: supple, no JVD Effort: mildly labored Ascultation: Bilateral: diminished breath sounds, rales, other (Prolonged expiratory phase.) Percussion: Bilateral: not dull Cardiovascular: regular rate and rhythm, other (PVCs on telemtry, ) Gastrointestinal: normoactive bowel sounds, soft, non-tender, non-distended Integumentary: normal Extremities: no cyanosis, edema (2+) Neurologic: normal mental status, non-focal exam, pupils equal and round, CN II- XII normal Psychiatric: mood appropriate, affect normal CBC and BMP: 10/12/19 04:55 10/12/19 04:55 ABG, PT/INR, D-dimer: ABG POC ABG pH 7.291 (7.35-7.45) L 10/08/19 17:53 POC ABG pO2 79 (80-105) L 10/08/19 17:53 POC ABG HCO3 34.2 (22-26 mml/L) 10/08/19 17:53 POC ABG Total CO2 36 (23-27mmol/L) 10/08/19 17:53 POC ABG O2 Sat 93 10/08/19 17:53 PT/INR, D-dimer PT 14.2 Sec. (12.2-14.9) 10/08/19 18:41 INR 1.11 (0.87-1.13) 10/08/19 18:41 Abnormal lab findings: Abnormal Labs 10/08/19 10/08/19 10/08/19 16:56 16:56 16:56 WBC Hgb 15.2 H Hct 47.9 H RDW 15.7 H [place] % (Auto) 7.8 H Lymph # 1.1 L Seg Neutrophils % POC ABG pH POC ABG pO2 Sodium 136 L Potassium 5.5 H Chloride 94.4 L Carbon Dioxide BUN 29 H Creatinine Glucose 113 H Hemoglobin A1c NT-Pro-B Natriuret Pep 60161 H Total Protein Albumin TSH 10/08/19 10/08/19 10/09/19 17:53 18:41 03:22 WBC 3.8 L Hgb Hct RDW 15.8 H [place] % (Auto) 14.3 H Lymph # 1.1 L Seg Neutrophils % POC ABG pH 7.291 L POC ABG pO2 79 L Sodium Potassium Chloride Carbon Dioxide BUN Creatinine Glucose Hemoglobin A1c NT-Pro-B Natriuret Pep Total Protein Albumin TSH 4.560 H 10/09/19 10/09/19 10/10/19 03:22 03:22 03:35 WBC 3.6 L Hgb Hct 43.0 H RDW 16.0 H [place] % (Auto) 8.9 H Lymph # 0.9 L Seg Neutrophils % POC ABG pH POC ABG pO2 Sodium Potassium 5.1 H Chloride 97.5 L Carbon Dioxide 34 H D BUN 30 H Creatinine Glucose Hemoglobin A1c 6.9 H NT-Pro-B Natriuret Pep Total Protein Albumin 3.8 L TSH 10/10/19 10/11/19 10/11/19 03:35 04:53 04:53 WBC Hgb 14.4 H Hct 44.5 H RDW 15.6 H [place] % (Auto) Lymph # Seg Neutrophils % POC ABG pH POC ABG pO2 Sodium 135 L Potassium 5.1 H Chloride 93.4 L 92.6 L Carbon Dioxide 34 H 32 H BUN 32 H 40 H Creatinine 1.4 H D Glucose 114 H 102 H Hemoglobin A1c NT-Pro-B Natriuret Pep Total Protein 5.9 L Albumin 3.4 L 3.0 L TSH 10/12/19 10/12/19 04:55 04:55 WBC 4.1 L Hgb Hct RDW [place] % (Auto) 9.8 H Lymph # 0.8 L Seg Neutrophils % 70.7 H POC ABG pH POC ABG pO2 Sodium 135 L Potassium Chloride 90.5 L Carbon Dioxide 35 H BUN 28 H Creatinine Glucose 148 H Hemoglobin A1c NT-Pro-B Natriuret Pep Total Protein 5.9 L Albumin 3.3 L TSH Chest x-ray: image reviewed Allied health notes reviewed: RT
[2019-10-12] MEDS: VASOPRESSIN 20 UNIT in SODIUM CHLORIDE 0.9% 100 ML IV SCH (08:34)
[2019-10-12] MEDS: LOSARTAN 25 MG TAB PO SCH (09:19)
[2019-10-12] MEDS: FAMOTIDINE 20 MG/2 ML INJ IV SCH (09:20)
[2019-10-12] MEDS: DOCUSATE SODIUM 100 MG CAP PO SCH (09:20)
[2019-10-12] MEDS: ENOXAPARIN 40 MG/0.4 ML INJ SUB-Q SCH (09:20)
[2019-10-12] MEDS: ASPIRIN 81 MG TAB CHEW PO SCH (09:20)
[2019-10-12] MEDS ORDERED: FUROSEMIDE 20 MG/2 ML INJ IV ONE (10:00)
[2019-10-12] MEDS ORDERED: MAGNESIUM SULFATE 2 GM/50 ML BAG IV ONE (10:00)
--- NOTE | 2019-10-12 10:00 | Discharge Summary ---
Providers - Providers Date of Admission: 10/08/19 18:27 Date of discharge: 10/12/19 Attending physician: PEMA CONTRERAS 10/08/19 18:27 Consult to Physician [CONS] Routine Comment: Consulting Provider: AKOSUA WAKEFIELD Physician Instructions: Reason For Exam: acute respiratory failure 10/08/19 18:37 Consult to Physician [CONS] Routine Comment: Consulting Provider: AHSAN MENDEZ Physician Instructions: Reason For Exam: Heart failure 10/10/19 20:37 PICC Line Placement [Consult to PICC Line RN] [CONS] Routine Reason For Exam: Hypotension Type Line:: PICC Primary care physician: EZEKIEL GARDNER Hospitalization Reason for admission: Acute on chronic respirator failure with hypoxia and hypercapnea. Pulm HTN, Condition: Fair Pertinent studies: Chest x-ray, Echocardiogram that showed ejection fraction of 50-55% with diastolic dysfunction and dilated right ventricle Procedures: None Hospital course: Patient is 78-year-old female who has a history of COPD and current tobacco user, presented to my office about 2 weeks ago with swelling of the both lower extremities. Chest x-ray and CT scan were ordered as well as Echocardiogram. Patient was continued on bronchodilators and placed on diuretics. While at the cardiology office today, 10/08/19 patient was having increasing shortness of breath. I was contacted for further evaluation as her PCP. While in my office patient was found to have progressive shortness of breath with hypoxia. She has bilateral pedal edema. Denies any chest pain. Has orthopnea with proximal nocturnal dyspnea. No cough. Admission was therefore requested through the Emergency department. 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 ABG showed a pH of 7.29 with PO2 of 79 at FiO2 of 32. ProBNP was 12,267 glucose was elevated 113. On admission patient was commenced on bronchodilators, IV Solu-Medrol, diuresis, Acei, and metoprolol. I diabetes mellitus for which patient was placed on metformin. However this has been held because of the elevated creatinine from diuresis. Echocardiogram Showed ejection fraction of 50-55% with severe pulmonary hypertension and restrictive left ventricle. Thread Separator was consulted on admission decided the patient pulmonary hypertension was very severe and she verified to [facility] for further management of hypertension. We'll diuresis shortness of breath improved. She therefore been transferred to [facility] hplc chemist Dr. Mariano Sanchez for management of her pulmonary hypertension. Condition on transfer was satisfactory Disposition: [id number] [facility] IP Time spent for discharge: 40 minutes - Discharge Diagnoses (1) Cor pulmonale Status: Acute (2) Acute heart failure with preserved ejection fraction Status: Acute (3) Cor pulmonale Status: Acute (4) Hyperkalemia Status: Acute (5) NSVT (nonsustained ventricular tachycardia) Status: Acute (6) Severe pulmonary arterial systolic hypertension Status: Acute (7) COPD (chronic obstructive pulmonary disease) Status: Chronic Core Measure Documentation - Palliative Care Palliative Care/ Comfort Measures: Not Applicable - Core Measures Any of the following diagnoses?: heart failure - Heart Failure Discharge Requirements KALEN/ARB for LVSD if EF <40%: Yes Beta alanna at discharge: Yes Exam - Physical Exam Narrative exam: Constitutional: Well-nourished well-developed. In no distress Head: Normocephalic atraumatic Eyes: Pupils are equal round and reactive to light Nose: No enlarged turbinates, no septal deviation. Mouth: Moist mucous membranes. Neck: Supple no thyromegaly. No bruit. Has JVD Heart: Regular rate and rhythm, S1-S2 with S3. No rubs murmurs Lungs: Decreased breath sounds bilaterally. no rales or rhonchi Abdomen: Soft, nontender. Bowel sound are present. Extremities: 3+ edema, no cyanosis, no clubbing. Neuro: Alert oriented Oriented x3. No focal sensory or motor deficit. Skin: No rashes or hyperpigmented spots Musculoskeletal system: No joint pain or swelling Hematological: No petechia or subcutanous hemorrhages. Immunological: No multiple septic spots on the skin Lymphatic: No generalized lymphadenopathy Psychiatry: Euthymic. Calm. - Constitutional Vitals: Temp Pulse Resp BP Pulse Ox 96.8 F L 88 17 118/64 95 10/12/19 08:15 10/12/19 09:19 10/12/19 08:00 10/12/19 09:19 10/12/19 08:00 Plan Activity: fall precautions Weight Bearing Status: Non-Weight Bearing Diet: low fat, low salt Follow up with: PEMA CONTRERAS MD [Staff Physician] - 3 Days EZEKIEL GARDNER MD [Primary Care Provider] - 6 Weeks
[2019-10-12] MEDS ORDERED: METOPROLOL TARTRATE 25 MG TAB PO SCH (11:00)
--- NOTE | 2019-10-12 14:44 | Progress Note ---
Assessment and Plan D/c dobutamine. Wean vaso as tolerated. Cont diuresis. Pt to tx to [place] for further eval/management of severe pulmonary HTN and cor pulmonale. The patient has been seen in conjunction with Dr. Bates who agrees with the assessment and plan of care. - Patient Problems (1) Acute heart failure with preserved ejection fraction Current Visit: Yes Status: Acute (2) Cor pulmonale Current Visit: Yes Status: Acute (3) Severe pulmonary arterial systolic hypertension Current Visit: Yes Status: Acute (4) COPD (chronic obstructive pulmonary disease) Current Visit: Yes Status: Chronic (5) HTN (hypertension) Current Visit: Yes Status: Chronic (6) Hyperlipemia Current Visit: Yes Status: Chronic (7) Diabetes Current Visit: Yes Status: Chronic (8) Tobacco use Current Visit: Yes Status: Chronic (9) RBBB Current Visit: Yes Status: Acute (10) Hyperkalemia Current Visit: Yes Status: Acute (11) NSVT (nonsustained ventricular tachycardia) Current Visit: Yes Status: Acute Subjective Date of service: 10/12/19 Principal diagnosis: Cor pulmonale; Severe PAH; COPD; Acute HFpEF; NSVT; Tobacco use Interval history: pt resting in bed, c/o intermittent sob. in SR. Objective Last Vital Signs Temp 97.8 F 10/12/19 12:00 Pulse 86 10/12/19 14:01 Resp 16 10/12/19 14:01 BP 110/51 10/12/19 14:00 Pulse Ox 100 10/12/19 14:00 - Physical Examination General: No Apparent Distress HEENT: Positive: PERRL, Normocephaly, Mucus Membranes Moist Neck: Positive: neck supple, trachea midline Cardiac: Positive: Reg Rate and Rhythm, S1/S2 Lungs: Positive: Decreased Breath Sounds Neuro: Positive: Grossly Intact Abdomen: Positive: Unremarkable. Negative: Tender /Rectal: Other (deferred) Skin: Negative: Rash Musculoskeletal: No Pain Extremities: Present: +2 Edema (BLE) - Labs and Meds Cardiac Enzymes 10/12/19 Range/Units 04:55 AST 10 (5-40) units/L CBC 10/12/19 Range/Units 04:55 WBC 4.1 L (4.5-11.0) K/mm3 RBC 3.90 (3.65-5.03) M/mm3 Hgb 12.2 (10.1-14.3) gm/dl Hct 37.2 D (30.3-42.9) % Plt Count 147 (140-440) K/mm3 Lymph # 0.8 L (1.2-5.4) K/mm3 [place] # 0.4 (0.0-0.8) K/mm3 Eos # 0.0 (0.0-0.4) K/mm3 Baso # 0.0 (0.0-0.1) K/mm3 Comprehensive Metabolic Panel 10/12/19 Range/Units 04:55 Sodium 135 L (137-145) mmol/L Potassium 4.2 (3.6-5.0) mmol/L Chloride 90.5 L (98-107) mmol/L Carbon Dioxide 35 H (22-30) mmol/L BUN 28 H (7-17) mg/dL Creatinine 0.7 (0.7-1.2) mg/dL Glucose 148 H (65-100) mg/dL Calcium 8.5 (8.4-10.2) mg/dL AST 10 (5-40) units/L ALT 12 (7-56) units/L Alkaline Phosphatase 40 (35-129) units/L Total Protein 5.9 L (6.3-8.2) g/dL Albumin 3.3 L (3.9-5) g/dL - Imaging and Cardiology EKG: report reviewed, image reviewed Echo: report reviewed (10/08/19: EF 50-55%, severe TR, markedly dilated RA&RV, enlarged coronary sinus, significant pulm htn, echogenic structures in RV and LA, small pericardial effusion) - Telemetry EKG Rhythm: Sinus Rhythm - EKG Sinus rhythms and dysrhythmias: sinus rhythm AV and intraventricular conduction: right bundle branch block - Allied health notes Allied health notes reviewed: RT
[2019-10-12 16:25] VITALS: BP 118/61
== END 2019-10-12 16:40 | disposition short-term general hospital (02) | DRG 291 ==
LOC: ED 16:37 → 4A 18:27 → CC1 10-11 00:16
PROVIDERS: ADMIT Family Medicine; ATTEND Family Medicine
PROC: 4A033R1 Measurement of Arterial Saturation, Peripheral, Percutaneous Approach (ICD-10-PCS; principal; 2019-10-08)
PROC: 02HV33Z Insertion of Infusion Device into Superior Vena Cava, Percutaneous Approach (ICD-10-PCS; 2019-10-11)
PROC: 5A09357 Assistance with Respiratory Ventilation, Less than 24 Consecutive Hours, Continuous Positive Airway Pressure (ICD-10-PCS; 2019-10-11)
PROC: 5A09357 Assistance with Respiratory Ventilation, Less than 24 Consecutive Hours, Continuous Positive Airway Pressure (ICD-10-PCS; 2019-10-12)
DX: I11.0 Hypertensive heart disease with heart failure (principal); I50.31 Acute diastolic (congestive) heart failure; J96.21 Acute and chronic respiratory failure with hypoxia; J96.22 Acute and chronic respiratory failure with hypercapnia; J44.1 Chronic obstructive pulmonary disease with (acute) exacerbation; I47.2 Ventricular tachycardia; E11.65 Type 2 diabetes mellitus with hyperglycemia; I27.21 Secondary pulmonary arterial hypertension; I45.10 Unspecified right bundle-branch block; I27.81 Cor pulmonale (chronic); F17.210 Nicotine dependence, cigarettes, uncomplicated; E87.5 Hyperkalemia; Z82.49 Family history of ischemic heart disease and other diseases of the circulatory system; Z79.82 Long term (current) use of aspirin; Z79.899 Other long term (current) drug therapy; Z71.6 Tobacco abuse counseling; Z79.84 Long term (current) use of oral hypoglycemic drugs
CPT/HCPCS: 36415; 71045; 80048; 80053; 80061; 81001; 82803; 83036; 83735; 83880; 84436; 84443; 84484; 85025; 85610; 85730; 93005; 93010; 93306; 94640; 94660; 94760; 96374; G0378; A9270-GY; J1250; J1650; J1940; J1956; J3475

== ENCOUNTER 2020-09-29 01:54 | Inpatient (IN) | payer MEDICARE ==
[2020-09-29] MEDS ORDERED: MAGNESIUM SULFATE 2 GM/50 ML BAG IV ONE (02:08)
[2020-09-29] MEDS ORDERED: IPRATROPIUM 0.02% NEBU 2.5 ML IH ONE (02:08)
[2020-09-29] MEDS ORDERED: methylPREDNISolone Sod Succinate 125 MG/2 ML INJ IV ONE (02:08)
[2020-09-29] MEDS ORDERED: ALBUTEROL 2.5 MG/3 ML NEBU IH ONE ×3 (02:08→15:03)
--- NOTE | 2020-09-29 02:10 | Emergency Department Report ---
ED Shortness of Breath HPI - General Chief Complaint: Dyspnea/Respdistress Stated Complaint: DIFF BREATHING Time Seen by Provider: 09/29/20 02:05 Source: patient Mode of arrival: Stretcher Limitations: No Limitations - History of Present Illness Initial Comments: Patient is a 79-year-old female that presents emergency room with complaints of shortness of breath and difficulty breathing. Patient that she is having hard time breathing. Patient states her symptoms are worsening. Patient was found to be hypoxic by EMS. Patient's oxygen saturation was 88%. Patient was placed on oxygen and her oxygen improved but her work to breathe did not. Patient's home oxygen was not functioning and the patient was placed on her normal home oxygen amount and her oxygen went up to 96%. Patient denies chest pain. Patient denies fever and chills. Patient complains of cough. Patient states her cough is dry. Patient denies recent travel. Patient denies recent international travel. Patient denies exposure to the novel coronavirus. Patient denies sick contacts. Patient denies fever and chills. Patient denies loss of smell. Patient denies diarrhea. Patient denies coming in contact with anybody with symptoms of the novel coronavirus. MD Complaint: shortness of breath, cough -: Sudden Severity: severe Consistency: constant Improves With: rest Worsens With: exertion Known History Of: COPD - Related Data Previous Rx's Medication Instructions Recorded Last Taken Type Aspirin [Aspirin BABY CHEW TAB] 81 mg PO QDAY tab.chew 10/12/19 Unknown Rx ALBUTEROL NEB's [Proventil 0.083% 2.5 mg IH Q3HRT PRN #7 nebu 08/28/20 Unknown Rx NEBS] Acetaminophen [Acetaminophen TAB] 650 mg PO Q4H PRN tablet 08/28/20 Unknown Rx Amlodipine Besylate [Norvasc] 2.5 mg PO DAILY 30 Days #30 08/28/20 Unknown Rx Arformoterol Nebu [Brovana Nebu] 15 mcg IH Q12HRT #1 ml 08/28/20 Unknown Rx Azithromycin [Zithromax TAB] 500 mg PO QDAY #3 tablet 08/28/20 Unknown Rx Pravastatin [Pravachol] 10 mg PO DAILY@2200 #30 tablet 08/28/20 Unknown Rx metFORMIN XR [Glucophage XR] 500 mg PO BIDDIAB tablet 08/28/20 Unknown Rx predniSONE [Deltasone] 10 mg PO .TAPER #48 tab 08/28/20 Unknown Rx Allergies Allergy/AdvReac Type Severity Reaction Status Date / Time No Known Allergies Allergy Verified 10/08/19 16:40 ED Review of Systems ROS: Stated complaint: DIFF BREATHING Other details as noted in HPI Constitutional: denies: chills, fever Eyes: denies: eye pain, eye discharge, vision change ENT: denies: ear pain, throat pain Respiratory: cough, shortness of breath, SOB with exertion, SOB at rest, wheezing Cardiovascular: denies: chest pain, palpitations Endocrine: no symptoms reported Gastrointestinal: denies: abdominal pain, nausea, diarrhea Genitourinary: denies: urgency, dysuria, discharge Musculoskeletal: denies: back pain, joint swelling, arthralgia Skin: denies: rash, lesions Neurological: denies: headache, weakness, paresthesias Psychiatric: denies: anxiety, depression Hematological/Lymphatic: denies: easy bleeding, easy bruising ED Past Medical Hx - Past Medical History Previous Medical History?: Yes Hx Hypertension: Yes Hx Congestive Heart Failure: Yes Hx Diabetes: Yes Hx Deep Vein Thrombosis: No Hx COPD: Yes Additional medical history: hyperlipidemia, angina - Surgical History Past Surgical History?: Yes Hx Pacemaker: No Hx Internal Defibrillator: No Additional Surgical History: Cyst in right breast - Family History Family history: no significant - Social History Smoking Status: Former Smoker Substance Use Type: None - Medications Home Medications: Home Medications Medication Instructions Recorded Confirmed Last Taken Type Aspirin [Aspirin BABY CHEW TAB] 81 mg PO QDAY tab.chew 10/12/19 08/26/20 Unknown Rx ALBUTEROL NEB's [Proventil 0.083% 2.5 mg IH Q3HRT PRN #7 nebu 08/28/20 Unknown Rx NEBS] Acetaminophen [Acetaminophen TAB] 650 mg PO Q4H PRN tablet 08/28/20 Unknown Rx Amlodipine Besylate [Norvasc] 2.5 mg PO DAILY 30 Days #30 08/28/20 Unknown Rx Arformoterol Nebu [Brovana Nebu] 15 mcg IH Q12HRT #1 ml 08/28/20 Unknown Rx Azithromycin [Zithromax TAB] 500 mg PO QDAY #3 tablet 08/28/20 Unknown Rx Pravastatin [Pravachol] 10 mg PO DAILY@2200 #30 tablet 08/28/20 Unknown Rx metFORMIN XR [Glucophage XR] 500 mg PO BIDDIAB tablet 08/28/20 Unknown Rx predniSONE [Deltasone] 10 mg PO .TAPER #48 tab 08/28/20 Unknown Rx ED Physical Exam - General Limitations: No Limitations General appearance: alert, in distress - Head Head exam: Present: atraumatic, normocephalic - Eye Eye exam: Present: normal appearance - ENT ENT exam: Present: mucous membranes moist - Neck Neck exam: Present: normal inspection - Respiratory Respiratory exam: Present: respiratory distress, accessory muscle use, decreased breath sounds - Cardiovascular Cardiovascular Exam: Present: regular rate, normal rhythm. Absent: systolic murmur, diastolic murmur, rubs, gallop - GI/Abdominal GI/Abdominal exam: Present: soft, normal bowel sounds - Extremities Exam Extremities exam: Present: normal inspection - Back Exam Back exam: Present: normal inspection - Neurological Exam Neurological exam: Present: alert, oriented X3 - Psychiatric Psychiatric exam: Present: normal affect, normal mood - Skin Skin exam: Present: warm, dry, intact, normal color. Absent: rash ED Course Vital Signs 09/29/20 09/29/20 09/29/20 02:08 02:16 02:30 Temperature 97.6 F Pulse Rate 85 98 H 80 Pulse Rate [ 98 H Posterior] Respiratory 20 23 15 Rate Respiratory 25 H Rate [Posterior ] Blood Pressure 135/79 148/61 Blood Pressure 140/63 [Right] O2 Sat by Pulse 100 95 Oximetry 09/29/20 09/29/20 09/29/20 02:46 03:00 03:15 Temperature Pulse Rate 69 67 72 Pulse Rate [ Posterior] Respiratory 16 14 16 Rate Respiratory Rate [Posterior ] Blood Pressure 107/52 109/50 112/56 Blood Pressure [Right] O2 Sat by Pulse 100 100 100 Oximetry 09/29/20 09/29/20 03:30 03:45 Temperature Pulse Rate 76 74 Pulse Rate [ Posterior] Respiratory 16 19 Rate Respiratory Rate [Posterior ] Blood Pressure 119/61 118/60 Blood Pressure [Right] O2 Sat by Pulse 100 100 Oximetry - Reevaluation(s) Reevaluation #1: Patient being placed on BiPAP. Patient agrees with plan of care. 09/29/20 02:15 Reevaluation #2: Patient states she is feeling much better. Patient's work to breathe has decreased. 09/29/20 02:30 Reevaluation #3: Patient's breath sounds have improved. Patient's has a mild wheeze. Patient's work to breathe has resolved. Patient still on BiPAP. 09/29/20 02:54 Reevaluation #4: Patient transition to nasal cannula oxygen. Patient's work to breathe has improved dramatically. Patient's lung sounds have improved. 09/29/20 04:08 Reevaluation #5: I discussed all results with patient. I discussed plan of care with patient. Patient agrees with plan of care and admission. Patient to be admitted to the hospitalist service. 09/29/20 04:28 - Consultations Consultation #1: Hospitalist consulted for admission. Hospitalist to admit patient. 09/29/20 04:28 ED Medical Decision Making - Lab Data Result diagrams: 09/29/20 02:21 09/29/20 02:21 - Radiology Data Radiology results: report reviewed, image reviewed CHEST 1 VIEW 2:43 AM INDICATION / CLINICAL INFORMATION: Dyspnea. COMPARISON: 08/27/2020. FINDINGS: SUPPORT DEVICES: None. HEART / MEDIASTINUM: Moderate cardiomegaly is stable. Mild prominence of the central pulmonary vessels has not changed. LUNGS / PLEURA: Slightly increased interstitial lung markings in the perihilar regions and lower lung zones are stable. No pneumothorax. ADDITIONAL FINDINGS: There is colonic interposition between the liver and right hemidiaphragm. IMPRESSION: Cardiomegaly. Mild chronic or recurrent CHF. - Medical Decision Making Patient is a 79-year-old female that presents emergency room with complaints of. Patient found to have increased work of breathing, respiratory distress and hypoxia. Patient placed on BiPAP and her symptoms improved dramatically. Patient given Solu-Medrol and magnesium and a DuoNeb. Patient's lung sounds and oxygenation improved. Patient was eventually transitioned off of BiPAP to nasal cannula oxygen. Patient's labs were essentially unremarkable. Patient chest x-ray shows no acute findings and no pneumonia. Patient admitted to the hospitalist service for further evaluation and treatment. Patient admitted to the [facility]. - Differential Diagnosis SOB, pneumonia, difficulty breathing, hypoxia, respiratory failure, Critical Care Time: Yes Critical care time in (mins) excluding proc time.: 35 Critical care attestation.: If time is entered above; I have spent that time in minutes in the direct care of this critically ill patient, excluding procedure time. Critical Care Time: 35 minutes ED Disposition Clinical Impression: COPD exacerbation, SOB (shortness of breath), Respiratory distress COPD (chronic obstructive pulmonary disease) Qualifiers: COPD type: unspecified COPD Qualified Code(s): J44.9 - Chronic obstructive pulmonary disease, unspecified Respiratory failure Qualifiers: Chronicity: acute Respiratory failure complication: hypoxia Qualified Code(s): J96.01 - Acute respiratory failure with hypoxia Disposition: OP ADMIT IP TO THIS HOSP Is pt being admited?: Yes Does the pt Need Aspirin: No Condition: Critical Time of Disposition: 04:30
[2020-09-29 02:53] LABS: Basophils # (Auto) 0.1 K/mm3 (0.0-0.1); Eosinophils # (Auto) 0.1 K/mm3 (0.0-0.4); Hematocrit 33.6 % (30.3-42.9); Lymphocytes # (Auto) 1.7 K/mm3 (1.2-5.4); Lymphocytes % (Auto) 26.7 % (13.4-35.0); Mean Corpuscular HGB Conc 33 % (30-34); Mean Corpuscular Volume 98 fl (79-97); Monocytes # (Auto) 0.3 K/mm3 (0.0-0.8); Monocytes % (Auto) 5.6 % (0.0-7.3); Platelet Count 199 K/mm3 (140-440); Red Blood Count 3.43 M/mm3 (3.65-5.03); Red Cell Distribution Width 14.5 % (13.2-15.2)
[2020-09-29 03:00] LABS: Alanine Aminotransferase 16 units/L (7-56); Albumin 3.5 g/dL (3.9-5); Blood Urea Nitrogen 17 mg/dL (7-17); Calcium 8.5 mg/dL (8.4-10.2); Hemolysis Index 15
[2020-09-29 03:02] LABS: BUN/Creatinine Ratio 28
--- NOTE | 2020-09-29 03:07 | XRay Report ---
CHEST 1 VIEW 2:43 AM INDICATION / CLINICAL INFORMATION: Dyspnea. COMPARISON: 08/27/2020. FINDINGS: SUPPORT DEVICES: None. HEART / MEDIASTINUM: Moderate cardiomegaly is stable. Mild prominence of the central pulmonary vessel s has not changed. LUNGS / PLEURA: Slightly increased interstitial lung markings in the perihilar regions and lower lung zones are stable. No pneumothorax. ADDITIONAL FINDINGS: There is colonic interposition between the liver and right hemidiaphragm. IMPRESSION: Cardiomegaly. Mild chronic or recurrent CHF. Signer Name: Felix Lopez MD Signed: 09/29/2020 3:03 AM Workstation Name: [id number]
--- NOTE | 2020-09-29 06:06 | History and Physical Report ---
History of Present Illness Date of examination: 09/29/20 Date of admission: 09/29/20 04:29 Chief complaint: Shortness of breath Wheezing History of present illness: Patient is a 79-year-old female that presents emergency room with complaints of shortness of breath and difficulty breathing. Patient states her symptoms are worsening. Patient was hypoxic and was placed on bipap and her condition improved. Bipap d/c. Per ED note- Patient's oxygen saturation was 88%. Patient's home oxygen was not functioning and the patient was placed on her normal home oxygen amount and her oxygen went up to 96%. Patient denies chest pain, fever and chills. Patient complains of cough and she has mild wheezing on auscultation. ED Work up shows WBC 6.0. hemoglobin 11.0, sodium 143, potassium 3.6, Cr 0.6 Lactic acid normal, serum blood sugar 140, albumen 3.5 Chest x-ray-shows mild or chronic CHF Medications and Allergies Allergies Allergy/AdvReac Type Severity Reaction Status Date / Time No Known Allergies Allergy Verified 10/08/19 16:40 Home Medications Medication Instructions Recorded Confirmed Last Taken Type Aspirin [Aspirin BABY CHEW TAB] 81 mg PO QDAY tab.chew 10/12/19 08/26/20 Unknown Rx ALBUTEROL NEB's [Proventil 0.083% 2.5 mg IH Q3HRT PRN #7 nebu 08/28/20 Unknown Rx NEBS] Acetaminophen [Acetaminophen TAB] 650 mg PO Q4H PRN tablet 08/28/20 Unknown Rx Amlodipine Besylate [Norvasc] 2.5 mg PO DAILY 30 Days #30 08/28/20 Unknown Rx Arformoterol Nebu [Brovana Nebu] 15 mcg IH Q12HRT #1 ml 08/28/20 Unknown Rx Azithromycin [Zithromax TAB] 500 mg PO QDAY #3 tablet 08/28/20 Unknown Rx Pravastatin [Pravachol] 10 mg PO DAILY@2200 #30 tablet 08/28/20 Unknown Rx metFORMIN XR [Glucophage XR] 500 mg PO BIDDIAB tablet 08/28/20 Unknown Rx predniSONE [Deltasone] 10 mg PO .TAPER #48 tab 08/28/20 Unknown Rx Exam - Constitutional Vitals: Temp Pulse Resp BP Pulse Ox 97.6 F 92 H 16 100/56 100 09/29/20 02:08 09/29/20 05:46 09/29/20 05:46 09/29/20 05:46 09/29/20 05:46 Results - Labs CBC & Chem 7: 09/29/20 02:21 09/29/20 02:21 Labs: Abnormal lab results 09/29/20 09/29/20 Range/Units 02:21 02:21 RBC 3.43 L (3.65-5.03) M/mm3 MCV 98 H (79-97) fl Glucose 140 H (65-100) mg/dL Albumin 3.5 L (3.9-5) g/dL Assessment and Plan - Patient Problems (1) COPD with acute exacerbation Current Visit: Yes Status: Acute Plan to address problem: respiratory care, oxygen supplement, Bronchodilator PRN for shortness of breath Manager Hydraulic consult Empiric abx with low Levaquin (2) Suspected COVID-19 virus infection Current Visit: No Status: Acute Plan to address problem: covid test-f/u with result monitor inflammatory makers d-dimer, LDH, and CRP WBC is normal and temp normal (3) T2DM (type 2 diabetes mellitus) Current Visit: No Status: Acute Plan to address problem: Monitor blood sugar with SSI chect Hga1c (4) HTN (hypertension) Current Visit: No Status: Chronic Qualifiers: Hypertension type: essential hypertension Qualified Code(s): I10 - Essential (primary) hypertension Plan to address problem: Monitor blood pressure Blood pressure stable-100/56 Will resume home bp med if needed (5) Hyperlipemia Current Visit: No Status: Chronic Plan to address problem: Resum home statin (6) Tobacco use Current Visit: No Status: Chronic Plan to address problem: Discussed tobacco use cessation (7) Acute respiratory failure with hypoxia Current Visit: Yes Status: Acute Plan to address problem: Continue oxygen supplement Pulmunologist following Bipap PRN (8) Acute heart failure Current Visit: No Status: Acute Plan to address problem: Chest x-ray shows patient has acute or chronic CHF Patient is euvolemic ECHO-f/u with result (9) Wheezing Current Visit: Yes Status: Acute Plan to address problem: oxygen supplemen, bronchodilator and systemic steroid. (10) DVT prophylaxis Current Visit: No Status: Acute Plan to address problem: Lovenox
[2020-09-29] MEDS: ALBUTEROL 2.5 MG/3 ML NEBU IH PRN (07:36)
[2020-09-29] MEDS ORDERED: INSULIN REGULAR, HUMAN 100 UNITS/1 ML ONE (08:00)
[2020-09-29] MEDS: INSULIN REGULAR, HUMAN 100 UNIT/ML 3ML VIAL SUB-Q SCH ×3 (08:06→23:14)
[2020-09-29] MEDS ORDERED: INSULIN REGULAR, HUMAN 100 UNIT/ML 3ML VIAL ONE (08:07)
[2020-09-29] MEDS ORDERED: ENOXAPARIN 30 MG/0.3 ML INJ SUB-Q SCH (10:00)
[2020-09-29] MEDS ORDERED: levoFLOXacin 250 MG TAB PO SCH (10:00)
[2020-09-29] MEDS: predniSONE 20 MG TAB PO SCH (10:10)
[2020-09-29] MEDS: ENOXAPARIN 40 MG/0.4 ML INJ SUB-Q SCH (10:11)
[2020-09-29 10:32] LABS: ABG Base Excess 8.5 mmol/L (-2.0-3.0); ABG HCO3 35.6 mmol/L (20.0-26.0); ABG Methemoglobin 0.6 % (0.0-1.5); ABG Oxygen Saturation 95.4 % (95.0-99.0); ABG PCO2 61.9 mm Hg; ABG PH 7.377 pH Units (7.350-7.450); ABG PO2 72.8 mm Hg (80.0-90.0)
--- NOTE | 2020-09-29 13:39 | Consultation ---
History of Present Illness Consult date: 09/29/20 Requesting physician: PAPITO RIBEIRO Reason for consult: COPD, hypoxemia, other (critical care) History of present illness: Patient is a 79-year-old female that presents emergency room with complaints of shortness of breath and difficulty breathing. Patient states her symptoms are worsening. Patient was hypoxic and was placed on bipap and her condition improved. Bipap d/c. Per ED note- Patient's oxygen saturation was 88%. Patient's home oxygen was not functioning and the patient was placed on her normal home oxygen amount and her oxygen went up to 96%. Patient denies chest pain, fever and chills. Patient complains of cough and she has mild wheezing on auscultation. ED Work up shows WBC 6.0. hemoglobin 11.0, sodium 143, potassium 3.6, Cr 0.6 Lactic acid normal, serum blood sugar 140, albumen 3.5 Chest x-ray-shows mild or chronic CHF I have been consulted for critical care management. Patient was seen and examined in the ED. Vitals, labs, medications, chart and imaging reviewed. She still has profound dyspnea , on supplemental oxygen with BIPAP on stand by. She states she quit smoking about a year ago - Past Medical History Previous Medical History?: Yes Hx Hypertension: Yes Hx Congestive Heart Failure: Yes Hx Diabetes: Yes Hx Deep Vein Thrombosis: No Hx COPD: Yes Additional medical history: hyperlipidemia, angina - Surgical History Past Surgical History?: Yes Hx Pacemaker: No Hx Internal Defibrillator: No Additional Surgical History: Cyst in right breast - Family History Family history: no significant - Social History Smoking Status: Former Smoker Substance Use Type: None Medications and Allergies Allergies Allergy/AdvReac Type Severity Reaction Status Date / Time No Known Allergies Allergy Verified 10/08/19 16:40 Home Medications Medication Instructions Recorded Confirmed Last Taken Type Aspirin [Aspirin BABY CHEW TAB] 81 mg PO QDAY tab.chew 10/12/19 08/26/20 Unknown Rx ALBUTEROL NEB's [Proventil 0.083% 2.5 mg IH Q3HRT PRN #7 nebu 08/28/20 Unknown Rx NEBS] Acetaminophen [Acetaminophen TAB] 650 mg PO Q4H PRN tablet 08/28/20 Unknown Rx Amlodipine Besylate [Norvasc] 2.5 mg PO DAILY 30 Days #30 08/28/20 Unknown Rx Arformoterol Nebu [Brovana Nebu] 15 mcg IH Q12HRT #1 ml 08/28/20 Unknown Rx Azithromycin [Zithromax TAB] 500 mg PO QDAY #3 tablet 08/28/20 Unknown Rx Pravastatin [Pravachol] 10 mg PO DAILY@2200 #30 tablet 08/28/20 Unknown Rx metFORMIN XR [Glucophage XR] 500 mg PO BIDDIAB tablet 08/28/20 Unknown Rx predniSONE [Deltasone] 10 mg PO .TAPER #48 tab 08/28/20 Unknown Rx Active Meds: Active Medications Albuterol (Proventil) 2.5 mg IH Q4HRT PRN PRN Reason: Shortness Of Breath Last Admin: 09/29/20 07:36 Dose: 2.5 mg Documented by: Atorvastatin Calcium (Lipitor) 20 mg PO QHS [facility] Enoxaparin Sodium (Enoxaparin) 40 mg SUB-Q QDAY@1000 JULIO CESAR Last Admin: 09/29/20 10:11 Dose: 40 mg Documented by: Insulin Human Regular (Humulin R) 0 unit SUB-Q [facility]; Protocol Last Admin: 09/29/20 08:06 Dose: 2 unit Documented by: Levofloxacin (Levaquin) 250 mg PO Q24HR [facility] Last Admin: 09/29/20 10:10 Dose: 250 mg Documented by: Prednisone (Deltasone) 40 mg PO QDAY [facility] Last Admin: 09/29/20 10:10 Dose: 40 mg Documented by: Review of Systems Constitutional: sweats, night sweats, no weight loss, no fever, no chills Cardiovascular: shortness of breath, no chest pain, no orthopnea, no edema, no syncope, no lightheadedness Respiratory: cough, cough with sputum, shortness of breath, dyspnea on exertion, wheezing, home oxygen, no excessive sputum, no hemoptysis Gastrointestinal: constipation, no abdominal pain, no nausea, no vomiting, no diarrhea, no hematemesis, no coffee ground emesis Neurological: no transient paralysis, no parathesias, no seizures, no syncope, no tremors Psychiatric: anxiety Physical Examination Vital signs: Vital Signs Temp Pulse Resp BP Pulse Ox 97.6 F 85 20 140/63 100 09/29/20 02:08 09/29/20 02:08 09/29/20 02:08 09/29/20 02:08 09/29/20 02:08 General appearance: appears uncomfortable, other (Thin, cachetic with increased work of breathing) Eyes: non-icteric ENT: oropharynx dry Neck: supple, no lymphadenopathy, no JVD Effort: very labored Ascultation: Bilateral: diminished breath sounds, other (quiet chest) Cardiovascular: regular rate and rhythm, other (S1,S2) Gastrointestinal: normoactive bowel sounds, soft, non-tender, non-distended Integumentary: rash Extremities: no cyanosis, no edema, pulses normal normal mental status, non-focal exam, pupils equal and round, CN II-XII normal, motor strength normal and mood appropriate, anxious Results - Laboratory Findings CBC and BMP: 10/01/20 08:35 10/01/20 08:35 ABG ABG pH 7.377 pH Units (7.350-7.450) 09/29/20 10:04 ABG pCO2 61.9 mm Hg 09/29/20 10:04 ABG pO2 72.8 mm Hg (80.0-90.0) L 09/29/20 10:04 ABG O2 Saturation 95.4 % (95.0-99.0) 09/29/20 10:04 Abnormal lab findings: Abnormal Labs 09/29/20 09/29/20 09/29/20 02:21 02:21 08:21 RBC 3.43 L MCV 98 H ABG pO2 ABG HCO3 ABG Base Excess ABG Hemoglobin Oxyhemoglobin Glucose 140 H POC Glucose 212 H Albumin 3.5 L 09/29/20 10:04 RBC MCV ABG pO2 72.8 L ABG HCO3 35.6 H ABG Base Excess 8.5 H ABG Hemoglobin 11.7 L Oxyhemoglobin 93.6 L Glucose POC Glucose Albumin - Diagnostic Findings Chest x-ray: image reviewed Assessment and Plan Acute on chronic hypoxemic-hypercapnic respiratory failure. PUI COVID-19 Acute chronic obstructive pulmonary disease exacerbation. 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 Possible congestive heart failure exacerbation. Leukopenia History of diabetes. Hypertension. Hyperlipidemia - continue to wean supplemental oxygen to keep O2 sats 88-90% -BIPAP qhs and prn for work of breathing and hypercarbia -Oxygen restrictive strategies - Bronchodilators (JUAN ALBERTO & LABA) with pulm hygiene per RT - continue systemic steroids with slow taper - continue inhaled corticosteroids - PT/OT as tolerated - prn analgesia per pain score - accuchecks with glycemic control per SSI for target blood glucose < 180 mg/dL - Smoking cessation strongly counseled at the bedside- encouraged to remain quit - Stress ulcer prophylaxis while critically ill and on high dose steroids -VTE prophylaxis -CXR, ABG as clinically indicated -Avoid benzodiazepines, reduce the possibility of delirium -Maintain sleep wake pattern -Optimization of nutritional support -Conservative fluid management measures as tolerated by hemodynamics and renal function -Antibiotics for severe AE-COPD - Avoid nephrotoxins, closely monitor renal function, dose all medications for renal function - Mobility protocol, off loading and skin assessment for pressure ulcer prevention - Influenza and pneumonia vaccinations per protocol - Pulmonary out patient follow up for PFTs and optimization of respiratory status -Airborne, contact isolation for PUI COVID per facility protocols -Bowel regimen for constipation Discussed with the ED team-RT,RN, Discussed with hospitalist service Life threatening condition- acute on chronic hypoxemic respiratory failure, Severe pulmonary HTN, AE-COPD Mortality/Morbidity- High Complexity of medical decision making- High CONDITION: CRITICAL PROGNOSIS: GUARDED CODE STATUS: FULL CODE The high probability of a clinically significant, sudden or life-threatening deterioration of the [respiratory ] system(s) required my full and direct attention, intervention and personal management. The aggregate critical care time was [35] minutes without overlap. Time includes spent on; [x] Data Review and interpretation [x] Patient assessment and monitoring of vital signs [x] Documentation [x] Medication orders and management
[2020-09-29] MEDS ORDERED: FAMOTIDINE 20 MG TAB ONE (15:03)
[2020-09-29] MEDS ORDERED: levoFLOXacin 500 MG TAB ONE (15:03)
[2020-09-29] MEDS: FAMOTIDINE 20 MG TAB PO SCH (15:08)
[2020-09-29] MEDS: IPRATROPIUM/ALBUTEROL SULFATE 3 ML AMPUL.NEB IH SCH ×3 (15:08→21:07)
[2020-09-29] MEDS: levoFLOXacin 500 MG TAB PO SCH (15:08)
[2020-09-29] MEDS ORDERED: ENOXAPARIN 40 MG/0.4 ML INJ SUB-Q ONE (16:23)
[2020-09-29] MEDS ORDERED: predniSONE 20 MG TAB ONE (16:24)
--- NOTE | 2020-09-29 18:06 | Event Note ---
Date: 09/29/20 Patient is a 79-year-old female that presents emergency room on 2L home O2 with complaints of shortness of breath and difficulty breathing. Patient was hypoxic with O2 sat 88% and was placed on bipap and her condition improved. ED Work up showed WBC 6.0. hemoglobin 11.0, sodium 143, potassium 3.6, Cr 0.6 Lactic acid normal, serum blood sugar 140, albumen 3.5 Chest x-ray-shows mild or chronic CHF Patient now on 6L n/c, transfer to remote [facility] and follow clinically
[2020-09-29] MEDS: DOCUSATE SODIUM 100 MG CAP PO SCH ×2 (18:43→22:59)
[2020-09-30] MEDS: IPRATROPIUM/ALBUTEROL SULFATE 3 ML AMPUL.NEB IH SCH ×6 (02:45→21:31)
[2020-09-30] MEDS: ENOXAPARIN 40 MG/0.4 ML INJ SUB-Q SCH (09:49)
[2020-09-30] MEDS: predniSONE 20 MG TAB PO SCH (09:49)
[2020-09-30] MEDS: DOCUSATE SODIUM 100 MG CAP PO SCH ×2 (09:49→22:02)
[2020-09-30] MEDS: levoFLOXacin 500 MG TAB PO SCH (09:49)
[2020-09-30] MEDS: FAMOTIDINE 20 MG TAB PO SCH (09:49)
[2020-09-30] MEDS: INSULIN REGULAR, HUMAN 100 UNIT/ML 3ML VIAL SUB-Q SCH ×5 (10:02→22:00)
[2020-09-30] MEDS: ALBUTEROL 2.5 MG/3 ML NEBU IH PRN ×2 (12:20→15:04)
--- NOTE | 2020-09-30 12:46 | Progress Note ---
Assessment and Plan --Acute on chronic respiratory failure with hypoxia and hypercapnia Cont with bronchodilators IV Solu-Medrol IV Levaquin Supplemental oxygen - 4L o2 Pulmonary consult if no improvement -- COPD with acute exacerbation Bronchodilators with supple. 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 Stated that she is full code Brief History: Patient is a 79-year-old female that presents emergency room on 2L home O2 with complaints of shortness of breath and difficulty breathing. Patient was hypoxic with O2 sat 88% and was placed on bipap and her condition improved. ED Work up showed: WBC 6.0. hemoglobin 11.0, sodium 143, potassium 3.6, Cr 0.6 Lactic acid normal, serum blood sugar 140, albumen 3.5, Chest x-ray-shows mild or chronic CHF. admitted for further evaluation and mx 09/29: Patient now on 6L n/c, transfer to remote [facility]. cont current Mx and follow clinically. covid test ordered 09/30: pending COVID, patient on 4 L o2, cont supportive care Subjective Date of service: 09/30/20 Interval history: Patient seen and examined c/o SOB, tolerating diet, no chest pain covid test pending Objective - Exam Narrative Exam: - General Limitations: No Limitations General appearance: alert, no distress - Head Head exam: Present: atraumatic, normocephalic - Eye Eye exam: Present: normal appearance - ENT ENT exam: Present: mucous membranes moist - Neck Neck exam: Present: normal inspection - Respiratory Respiratory exam: Present: b/l decreased breath sounds - Cardiovascular Cardiovascular Exam: Present: regular rate, normal rhythm. Absent: systolic murmur, diastolic murmur, rubs, gallop - GI/Abdominal GI/Abdominal exam: Present: soft, normal bowel sounds - Extremities Exam Extremities exam: Present: normal inspection - Back Exam Back exam: Present: normal inspection - Neurological Exam Neurological exam: Present: alert, oriented X3 - Psychiatric Psychiatric exam: Present: normal affect, normal mood - Skin Skin exam: Present: warm, dry, intact, normal color. Absent: rash - Constitutional Vitals: Vital Signs - 12hr 09/30/20 09/30/20 09/30/20 01:00 03:29 03:54 Temperature 98.7 F Pulse Rate 108 H Pulse Rate [ Anterior Bilateral Throughout] Pulse Rate [ 104 H Posterior] Respiratory 24 Rate Respiratory Rate [Anterior Bilateral Throughout] Respiratory 21 Rate [Posterior ] Blood Pressure 123/68 O2 Sat by Pulse 100 100 Oximetry 09/30/20 07:17 Temperature Pulse Rate Pulse Rate [ 94 H Anterior Bilateral Throughout] Pulse Rate [ Posterior] Respiratory Rate Respiratory 18 Rate [Anterior Bilateral Throughout] Respiratory Rate [Posterior ] Blood Pressure O2 Sat by Pulse Oximetry - Labs CBC & Chem 7: 09/29/20 02:21 09/29/20 02:21 Labs: Abnormal lab results 09/29/20 09/30/20 Range/Units 23:13 10:12 POC Glucose 170 H 167 H (70-105) mg/dL
[2020-09-30] MEDS ORDERED: ALPRAZolam 0.25 MG TAB PO PRN (13:25)
--- NOTE | 2020-09-30 19:48 | Progress Note ---
Assessment and Plan Acute on chronic hypoxemic respiratory failure. PUI COVID-19 Acute chronic obstructive pulmonary disease exacerbation. Possible congestive heart failure exacerbation. Pulmonary hypertension by history. Heart failure with preserved ejection fraction. Leukopenia with a white cell count of 3.8 today. History of diabetes. Hypertension. Hyperlipidemia - Contact & airborne isolation - follow COVID test result - dexamethasone 4mg p.o. daily - continue to wean supplemental oxygen to keep O2 sats > 90% - Bronchodilators (JUAN ALBERTO & LABA) with pulm hygiene per RT - continue systemic steroids with slow taper - continue inhaled corticosteroids - avoid nephrotoxins, renally dose all medications - mobility protocols to prevent pressure ulcers - PT/OT as tolerated - prn analgesia per pain score - accuchecks with glycemic control per SSI for target blood glucose < 180 mg/dL - Smoking cessation strongly counseled at the bedside - home oxygen evaluation at discharge - GI & VTE prophylaxis - Flu & pneumovax per protocol - Pulmonary out patient follow up for PFTs and optimization of respiratory status - continue other care per attending / other consultants ... re-evaluate in am & prn Subjective Date of service: 09/30/20 Principal diagnosis: Ac on ch hypoxemic resp failure; AE-COPD; CHF (HFpEF); Pulm HTN; DM II; HTN Interval history: Patient is seen today for: Acute on chronic hypoxemic respiratory failure; AE- COPD; CHF (HFpEF); Pulm HTN; DM II; HTN; PUI COVID-19 Seen and examined at bedside; 24hour events reviewed; nursing and respiratory care staff consulted; no adverse overnight events reported to me; resting peacefully in bed; Objective Vital Signs - 12hr 09/30/20 09/30/20 09/30/20 12:15 12:20 13:19 Temperature 98.0 F Pulse Rate 55 L Pulse Rate [ 98 H Anterior Bilateral Throughout] Pulse Rate [ 100 H Posterior] Respiratory 22 Rate Respiratory 24 Rate [Anterior Bilateral Throughout] Respiratory 28 H Rate [Posterior ] Blood Pressure 129/57 O2 Sat by Pulse 98 99 Oximetry 09/30/20 09/30/20 09/30/20 16:06 16:20 17:46 Temperature Pulse Rate 104 H 102 H Pulse Rate [ 100 H Anterior Bilateral Throughout] Pulse Rate [ 96 H Posterior] Respiratory 20 Rate Respiratory 26 H Rate [Anterior Bilateral Throughout] Respiratory 26 H Rate [Posterior ] Blood Pressure 136/51 O2 Sat by Pulse 92 Oximetry 09/30/20 17:47 Temperature 98.0 F Pulse Rate Pulse Rate [ Anterior Bilateral Throughout] Pulse Rate [ Posterior] Respiratory Rate Respiratory Rate [Anterior Bilateral Throughout] Respiratory Rate [Posterior ] Blood Pressure O2 Sat by Pulse Oximetry CBC and BMP: 09/29/20 02:21 09/29/20 02:21 ABG, PT/INR, D-dimer: ABG ABG pH 7.377 pH Units (7.350-7.450) 09/29/20 10:04 ABG pCO2 61.9 mm Hg 09/29/20 10:04 ABG pO2 72.8 mm Hg (80.0-90.0) L 09/29/20 10:04 ABG O2 Saturation 95.4 % (95.0-99.0) 09/29/20 10:04 Abnormal lab findings: Abnormal Labs 09/29/20 09/29/20 09/29/20 02:21 02:21 08:21 RBC 3.43 L MCV 98 H ABG pO2 ABG HCO3 ABG Base Excess ABG Hemoglobin Oxyhemoglobin Glucose 140 H POC Glucose 212 H Albumin 3.5 L 09/29/20 09/29/20 09/30/20 10:04 23:13 10:12 RBC MCV ABG pO2 72.8 L ABG HCO3 35.6 H ABG Base Excess 8.5 H ABG Hemoglobin 11.7 L Oxyhemoglobin 93.6 L Glucose POC Glucose 170 H 167 H Albumin 09/30/20 09/30/20 13:34 17:18 RBC MCV ABG pO2 ABG HCO3 ABG Base Excess ABG Hemoglobin Oxyhemoglobin Glucose POC Glucose 135 H 253 H Albumin
[2020-09-30] MEDS ORDERED: DEXAMETHASONE 4 MG TAB PO SCH (20:00)
[2020-10-01] MEDS: IPRATROPIUM/ALBUTEROL SULFATE 3 ML AMPUL.NEB IH SCH ×4 (03:06→20:49)
[2020-10-01] MEDS: INSULIN REGULAR, HUMAN 100 UNIT/ML 3ML VIAL SUB-Q SCH ×4 (08:22→23:32)
--- NOTE | 2020-10-01 08:41 | Progress Note ---
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 Empiric abx with low Levaquin (2) Suspected COVID-19 virus infection Current Visit: No Status: Acute Plan to address problem: covid test-f/u with result monitor inflammatory makers d-dimer, LDH, and CRP WBC is normal and temp normal (3) T2DM (type 2 diabetes mellitus) Current Visit: No Status: Acute Plan to address problem: Monitor blood sugar with SSI chect Hga1c (4) HTN (hypertension) Current Visit: No Status: Chronic Qualifiers: Hypertension type: essential hypertension Qualified Code(s): I10 - Essential (primary) hypertension Plan to address problem: Monitor blood pressure Blood pressure stable-100/56 Will resume home bp med if needed (5) Hyperlipemia Current Visit: No Status: Chronic Plan to address problem: Resum home statin (6) Tobacco use Current Visit: No Status: Chronic Plan to address problem: Discussed tobacco use cessation (7) Acute respiratory failure with hypoxia Current Visit: Yes Status: Acute Plan to address problem: Continue oxygen supplement Pulmunologist following Bipap PRN (8) Acute heart failure Current Visit: No Status: Acute Plan to address problem: Chest x-ray shows patient has acute or chronic CHF Patient is euvolemic ECHO-f/u with result (9) Wheezing Current Visit: Yes Status: Acute Plan to address problem: oxygen supplemen, bronchodilator and systemic steroid. (10) DVT prophylaxis Current Visit: No Status: Acute Plan to address problem: Lovenox Subjective Date of service: 10/01/20 Principal diagnosis: Ac on ch hypoxemic resp failure; AE-COPD; CHF (HFpEF); Pulm HTN; DM II; HTN Interval history: Patient seen at bedside. reviewed lab, mar, and v/s Reviewed specialist note Objective - Constitutional Vitals: Vital Signs - 12hr 09/30/20 09/30/20 09/30/20 21:31 21:32 21:54 Temperature 97.8 F Pulse Rate 73 Pulse Rate [ 96 H Anterior Bilateral Throughout] Pulse Rate [ 96 H Posterior] Respiratory 20 Rate Respiratory 26 H Rate [Anterior Bilateral Throughout] Respiratory 26 H Rate [Posterior ] Blood Pressure 127/64 O2 Sat by Pulse 100 99 Oximetry 10/01/20 10/01/20 02:00 04:26 Temperature 97.4 F L Pulse Rate 99 H Pulse Rate [ Anterior Bilateral Throughout] Pulse Rate [ Posterior] Respiratory 20 16 Rate Respiratory Rate [Anterior Bilateral Throughout] Respiratory Rate [Posterior ] Blood Pressure 106/70 O2 Sat by Pulse 100 Oximetry General appearance: Present: no acute distress, other (frail appearing elderly patient) - EENT Eyes: PERRL, EOM intact ENT: hearing intact, clear oral mucosa Ears: bilateral: normal - Neck Neck: supple, normal ROM - Respiratory Respiratory effort: normal Respiratory: bilateral: CTA, diminished - Breasts Breasts: normal - Cardiovascular Rhythm: regular Heart Sounds: Present: S1 & S2. Absent: gallop, rub Extremities: pulses intact, No edema, normal color, Full ROM - Gastrointestinal General gastrointestinal: Present: soft, non-tender, non-distended, normal bowel sounds - Genitourinary Female genitourinary: normal - Integumentary Integumentary: clear, warm, dry - Musculoskeletal Musculoskeletal: 1, strength equal bilaterally - Neurologic Neurologic: moves all extremities - Psychiatric Psychiatric: memory intact, appropriate mood/affect, intact judgment & insight - Allied health notes Allied health notes reviewed: nursing - Labs CBC & Chem 7: 09/29/20 02:21 09/29/20 02:21 Labs: Abnormal lab results 09/30/20 09/30/20 09/30/20 Range/Units 10:12 13:34 17:18 POC Glucose 167 H 135 H 253 H (70-105) mg/dL 09/30/20 10/01/20 Range/Units 21:19 08:07 POC Glucose 271 H 121 H (70-105) mg/dL
[2020-10-01] MEDS: FAMOTIDINE 20 MG TAB PO SCH (09:10)
[2020-10-01] MEDS: DOCUSATE SODIUM 100 MG CAP PO SCH ×2 (09:32→21:44)
[2020-10-01] MEDS: levoFLOXacin 500 MG TAB PO SCH (09:32)
[2020-10-01] MEDS: ENOXAPARIN 40 MG/0.4 ML INJ SUB-Q SCH (09:33)
[2020-10-01] MEDS ORDERED: amLODIPine 5 MG TAB PO SCH (10:00)
[2020-10-01 10:13] LABS: Basophils % (Auto) 0.4 % (0.0-1.8); Hematocrit 36.4 % (30.3-42.9); Hemoglobin 12.1 gm/dl (10.1-14.3); Lymphocytes # (Auto) 0.5 K/mm3 (1.2-5.4); Lymphocytes % (Auto) 6.1 % (13.4-35.0); Mean Corpuscular HGB Conc 33 % (30-34); Mean Corpuscular Volume 96 fl (79-97); Monocytes # (Auto) 0.4 K/mm3 (0.0-0.8); Monocytes % (Auto) 5.1 % (0.0-7.3); Platelet Count 213 K/mm3 (140-440); Red Blood Count 3.78 M/mm3 (3.65-5.03); Red Cell Distribution Width 14.6 % (13.2-15.2)
[2020-10-01 10:24] LABS: Blood Urea Nitrogen 23 mg/dL (7-17); Calcium 8.8 mg/dL (8.4-10.2); Hemolysis Index 3
[2020-10-01 10:26] LABS: BUN/Creatinine Ratio 33
--- NOTE | 2020-10-01 10:44 | Progress Note ---
Assessment and Plan Acute on chronic hypoxemic-hypercapnic respiratory failure. PUI COVID-19 Acute chronic obstructive pulmonary disease exacerbation. 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 Possible congestive heart failure exacerbation. Leukopenia History of diabetes. Hypertension. Hyperlipidemia Discussed with cardiology, lasix added to therapy - continue to wean supplemental oxygen to keep O2 sats 88-90% -BIPAP qhs and prn for work of breathing and hypercarbia -Oxygen restrictive strategies - Bronchodilators (JUAN ALBERTO & LABA) with pulm hygiene per RT - continue systemic steroids with slow taper - continue inhaled corticosteroids - PT/OT as tolerated - prn analgesia per pain score - accuchecks with glycemic control per SSI for target blood glucose < 180 mg/dL - Smoking cessation strongly counseled at the bedside- encouraged to remain quit - Stress ulcer prophylaxis while critically ill and on high dose steroids -VTE prophylaxis -CXR, ABG as clinically indicated -Avoid benzodiazepines, reduce the possibility of delirium -Maintain sleep wake pattern -Optimization of nutritional support -Conservative fluid management measures as tolerated by hemodynamics and renal function -Antibiotics for severe AE-COPD - Avoid nephrotoxins, closely monitor renal function, dose all medications for renal function - Mobility protocol, off loading and skin assessment for pressure ulcer prevention - Influenza and pneumonia vaccinations per protocol - Pulmonary out patient follow up for PFTs and optimization of respiratory status -Airborne, contact isolation for PUI COVID per facility protocols -Bowel regimen for constipation Life threatening condition- acute on chronic hypoxemic respiratory failure, Severe pulmonary HTN, AE-COPD Mortality/Morbidity- High Complexity of medical decision making- High Subjective Date of service: 10/01/20 Principal diagnosis: Ac on ch hypoxemic resp failure; AE-COPD; CHF (HFpEF); Pulm HTN; DM II; HTN Interval history: Patient is seen today for: Acute on chronic hypoxemic respiratory failure; AE- COPD; CHF (HFpEF); Pulm HTN; DM II; HTN; PUI COVID-19 Seen and examined at bedside; 24hour events reviewed; nursing and respiratory care staff consulted; no adverse overnight events reported to me; resting peacefully in bed; still has conversational dyspnea asking for her bronchodilators; denies any chest pain, no fevers or chills, no diarrhea or vomiting Objective Vital Signs - 12hr 10/01/20 10/01/20 10/01/20 02:00 04:26 09:00 Temperature 97.4 F L Pulse Rate 99 H Pulse Rate [ 98 H Anterior Bilateral Throughout] Respiratory 20 16 Rate Respiratory 18 Rate [Anterior Bilateral Throughout] Blood Pressure 106/70 O2 Sat by Pulse 100 Oximetry 10/01/20 10/01/20 09:32 10:00 Temperature Pulse Rate 99 H Pulse Rate [ Anterior Bilateral Throughout] Respiratory Rate Respiratory Rate [Anterior Bilateral Throughout] Blood Pressure 100/70 O2 Sat by Pulse 98 Oximetry Constitutional: appears uncomfortable, other (Thin, cachetic with increased work of breathing) Eyes: non-icteric ENT: oropharynx dry Neck: supple, no lymphadenopathy, no JVD Effort: mildly labored Ascultation: Bilateral: diminished breath sounds, other (quiet chest) Cardiovascular: regular rate and rhythm, other (S1,S2) Gastrointestinal: normoactive bowel sounds, soft, non-tender, non-distended Integumentary: rash Extremities: no cyanosis, no edema, pulses normal Neurologic: normal mental status, non-focal exam, pupils equal and round, CN II- XII normal, motor strength normal and Psychiatric: mood appropriate, anxious CBC and BMP: 10/01/20 08:35 10/02/20 07:59 ABG, PT/INR, D-dimer: ABG ABG pH 7.377 pH Units (7.350-7.450) 09/29/20 10:04 ABG pCO2 61.9 mm Hg 09/29/20 10:04 ABG pO2 72.8 mm Hg (80.0-90.0) L 09/29/20 10:04 ABG O2 Saturation 95.4 % (95.0-99.0) 09/29/20 10:04 Abnormal lab findings: Abnormal Labs 09/29/20 09/29/20 09/29/20 02:21 02:21 08:21 RBC 3.43 L MCV 98 H Lymph % (Auto) Lymph # (Auto) Seg Neutrophils % ABG pO2 ABG HCO3 ABG Base Excess ABG Hemoglobin Oxyhemoglobin Chloride Carbon Dioxide BUN Glucose 140 H POC Glucose 212 H Albumin 3.5 L 09/29/20 09/29/20 09/30/20 10:04 23:13 10:12 RBC MCV Lymph % (Auto) Lymph # (Auto) Seg Neutrophils % ABG pO2 72.8 L ABG HCO3 35.6 H ABG Base Excess 8.5 H ABG Hemoglobin 11.7 L Oxyhemoglobin 93.6 L Chloride Carbon Dioxide BUN Glucose POC Glucose 170 H 167 H Albumin 09/30/20 09/30/20 09/30/20 13:34 17:18 21:19 RBC MCV Lymph % (Auto) Lymph # (Auto) Seg Neutrophils % ABG pO2 ABG HCO3 ABG Base Excess ABG Hemoglobin Oxyhemoglobin Chloride Carbon Dioxide BUN Glucose POC Glucose 135 H 253 H 271 H Albumin 10/01/20 10/01/20 10/01/20 08:07 08:35 08:35 RBC MCV Lymph % (Auto) 6.1 L Lymph # (Auto) 0.5 L Seg Neutrophils % 88.4 H ABG pO2 ABG HCO3 ABG Base Excess ABG Hemoglobin Oxyhemoglobin Chloride 94.6 L Carbon Dioxide 36 H D BUN 23 H Glucose 134 H POC Glucose 121 H Albumin Chest x-ray: image reviewed Allied health notes reviewed: RT
--- NOTE | 2020-10-01 10:50 | Consultation ---
History of Present Illness Consult date: 10/01/20 Requesting physician: PAPITO RIBEIRO Consult reason: congestive heart failure History of present illness: 79-year-old patient chronic respiratory failure on oxygen COPD with severe pulmonary pretension and moderate severe LV dysfunction, presents to the hospital shortness of breath was admitted for COPD exacerbation and heart failure. Here for consultation. Patient is wheelchair-bound is on chronic oxygen. Is able lie down flat now her breathing has improved. Denies any chest pain or fever chills nausea or vomiting echo 07/2020 severe LV dysfunction EF 25-30% right-sided pressure overload with D septum with severe pulmonary pretension RHC done at [place] 10/2019 showed PA pressure 66/25(38), wedge 10, CO/CI Mitchell 2.26/1.58. tte done at [place] 05/2020 showed severely dilated LV, EF 25-30%, dilated RV, mild MR, mild TR, RVSP not estimated. tte done 10/08/19 showed EF 50-55%, markedly dilated hypokinetic RV, markedly dilated RA, severe TR, significant pulm HTN with RVSP 67mmHg, echogenic structure in RV appears to be large muscle trabeculation, echogenic structure in LA appears to be enlarge coronary sinus, small pericardial effusion. Past History Past Medical History: COPD, other (Cor pulmonale severe pulmonary pretension severe LV dysfunction) Past Surgical History: denies: No surgical history Social history: smoking. denies: alcohol abuse, prescription drug abuse Medications and Allergies Allergies Allergy/AdvReac Type Severity Reaction Status Date / Time No Known Allergies Allergy Verified 10/08/19 16:40 Home Medications Medication Instructions Recorded Confirmed Last Taken Type Aspirin [Aspirin BABY CHEW TAB] 81 mg PO QDAY tab.chew 10/12/19 08/26/20 Unknown Rx ALBUTEROL NEB's [Proventil 0.083% 2.5 mg IH Q3HRT PRN #7 nebu 08/28/20 Unknown Rx NEBS] Acetaminophen [Acetaminophen TAB] 650 mg PO Q4H PRN tablet 08/28/20 Unknown Rx Amlodipine Besylate [Norvasc] 2.5 mg PO DAILY 30 Days #30 08/28/20 Unknown Rx Arformoterol Nebu [Brovana Nebu] 15 mcg IH Q12HRT #1 ml 08/28/20 Unknown Rx Azithromycin [Zithromax TAB] 500 mg PO QDAY #3 tablet 08/28/20 Unknown Rx Pravastatin [Pravachol] 10 mg PO DAILY@2200 #30 tablet 08/28/20 Unknown Rx metFORMIN XR [Glucophage XR] 500 mg PO BIDDIAB tablet 08/28/20 Unknown Rx predniSONE [Deltasone] 10 mg PO .TAPER #48 tab 08/28/20 Unknown Rx Active Meds: Active Medications Albuterol (Proventil) 2.5 mg IH Q4HRT PRN PRN Reason: Shortness Of Breath Last Admin: 09/30/20 15:04 Dose: 2.5 mg Documented by: Albuterol/Ipratropium (Duoneb *Not For Prn Use*) 1 ampul IH Q6HRT [facility] Last Admin: 10/01/20 08:47 Dose: 1 ampul Documented by: Alprazolam (Xanax) 0.25 mg PO Q8H PRN PRN Reason: Anxiety Last Admin: 09/30/20 13:52 Dose: 0.25 mg Documented by: Dexamethasone (Decadron) 4 mg PO Q24H [facility] Last Admin: 09/30/20 20:02 Dose: 4 mg Documented by: Diltiazem HCl (Cardizem) 30 mg PO Q6HR [facility] Docusate Sodium (Colace) 100 mg PO BID [facility] Stop: 10/01/20 23:59 Last Admin: 10/01/20 09:32 Dose: 100 mg Documented by: Enoxaparin Sodium (Enoxaparin) 40 mg SUB-Q QDAY@1000 [facility] Last Admin: 10/01/20 09:33 Dose: 40 mg Documented by: Famotidine (Pepcid) 20 mg PO QDAY [facility] Last Admin: 09/30/20 09:49 Dose: 20 mg Documented by: Insulin Human Regular (Humulin R) 0 unit SUB-Q [facility]; Protocol Last Admin: 10/01/20 08:22 Dose: Not Given Documented by: Levofloxacin (Levaquin) 500 mg PO Q24HR [facility] Last Admin: 10/01/20 09:32 Dose: 500 mg Documented by: Pravastatin Sodium (Pravachol) 10 mg PO DAILY@2200 [facility] Review of Systems All systems: negative (As per the HPI) Physical Examination Vital Signs Temp Pulse Resp BP Pulse Ox 97.6 F 85 20 140/63 100 09/29/20 02:08 09/29/20 02:08 09/29/20 02:08 09/29/20 02:08 09/29/20 02:08 General appearance: no acute distress HEENT: Positive: PERRL, EOMI Neck: Positive: neck supple Cardiac: Positive: Tachycardia Lungs: Positive: Decreased Breath Sounds Neuro: Positive: Grossly Intact Abdomen: Positive: Soft Extremities: Present: normal. Absent: edema Results 10/01/20 08:35 10/01/20 08:35 Cardiac Enzymes 09/29/20 09/29/20 09/29/20 Range/Units 02:21 02:21 02:21 WBC 6.2 (4.5-11.0) K/mm3 RBC 3.43 L (3.65-5.03) M/mm3 Hgb 11.0 (10.1-14.3) gm/dl Hct 33.6 (30.3-42.9) % MCV 98 H (79-97) fl MCH 32 (28-32) pg MCHC 33 (30-34) % RDW 14.5 (13.2-15.2) % Plt Count 199 (140-440) K/mm3 Lymph % (Auto) 26.7 (13.4-35.0) % Rogers % (Auto) 5.6 (0.0-7.3) % Eos % (Auto) 2.0 (0.0-4.3) % Baso % (Auto) 1.0 (0.0-1.8) % Lymph # (Auto) 1.7 (1.2-5.4) K/mm3 Rogers # (Auto) 0.3 (0.0-0.8) K/mm3 Eos # (Auto) 0.1 (0.0-0.4) K/mm3 Baso # (Auto) 0.1 (0.0-0.1) K/mm3 Seg Neutrophils % 64.7 (40.0-70.0) % Seg Neutrophils # 4.0 (1.8-7.7) K/mm3 ABG pH (7.350-7.450) pH Units ABG pCO2 mm Hg ABG pO2 (80.0-90.0) mm Hg ABG HCO3 (20.0-26.0) mmol/L ABG O2 Saturation (95.0-99.0) % ABG O2 Content (0.0-44) ABG Base Excess (-2.0-3.0) mmol/L ABG Hemoglobin (12.0-16.0) gm/dl ABG Carboxyhemoglobin (0.0-5.0) % ABG Methemoglobin (0.0-1.5) % Oxyhemoglobin (95.0-99.0) % FiO2 % Sodium 143 (137-145) mmol/L Potassium 3.6 (3.6-5.0) mmol/L Chloride 99.1 (98-107) mmol/L Carbon Dioxide 28 (22-30) mmol/L Anion Gap 20 mmol/L BUN 17 (7-17) mg/dL Creatinine 0.6 (0.6-1.2) mg/dL Estimated GFR > 60 ml/min BUN/Creatinine Ratio 28 % Glucose 140 H (65-100) mg/dL POC Glucose (70-105) mg/dL Lactic Acid 1.40 (0.7-2.0) mmol/L Calcium 8.5 (8.4-10.2) mg/dL Total Bilirubin 0.30 (0.1-1.2) mg/dL ALT 16 (7-56) units/L Alkaline Phosphatase 64 (35-129) units/L Total Protein 6.4 (6.3-8.2) g/dL Albumin 3.5 L (3.9-5) g/dL Albumin/Globulin Ratio 1.2 % 09/29/20 09/29/20 09/29/20 Range/Units 08:21 10:04 23:13 WBC (4.5-11.0) K/mm3 RBC (3.65-5.03) M/mm3 Hgb (10.1-14.3) gm/dl Hct (30.3-42.9) % MCV (79-97) fl MCH (28-32) pg MCHC (30-34) % RDW (13.2-15.2) % Plt Count (140-440) K/mm3 Lymph % (Auto) (13.4-35.0) % Rogers % (Auto) (0.0-7.3) % Eos % (Auto) (0.0-4.3) % Baso % (Auto) (0.0-1.8) % Lymph # (Auto) (1.2-5.4) K/mm3 Rogers # (Auto) (0.0-0.8) K/mm3 Eos # (Auto) (0.0-0.4) K/mm3 Baso # (Auto) (0.0-0.1) K/mm3 Seg Neutrophils % (40.0-70.0) % Seg Neutrophils # (1.8-7.7) K/mm3 ABG pH 7.377 (7.350-7.450) pH Units ABG pCO2 61.9 mm Hg ABG pO2 72.8 L (80.0-90.0) mm Hg ABG HCO3 35.6 H (20.0-26.0) mmol/L ABG O2 Saturation 95.4 (95.0-99.0) % ABG O2 Content 15.5 (0.0-44) ABG Base Excess 8.5 H (-2.0-3.0) mmol/L ABG Hemoglobin 11.7 L (12.0-16.0) gm/dl ABG Carboxyhemoglobin 1.3 (0.0-5.0) % ABG Methemoglobin 0.6 (0.0-1.5) % Oxyhemoglobin 93.6 L (95.0-99.0) % FiO2 32 % Sodium (137-145) mmol/L Potassium (3.6-5.0) mmol/L Chloride (98-107) mmol/L Carbon Dioxide (22-30) mmol/L Anion Gap mmol/L BUN (7-17) mg/dL Creatinine (0.6-1.2) mg/dL Estimated GFR ml/min BUN/Creatinine Ratio % Glucose (65-100) mg/dL POC Glucose 212 H 170 H (70-105) mg/dL Lactic Acid (0.7-2.0) mmol/L Calcium (8.4-10.2) mg/dL Total Bilirubin (0.1-1.2) mg/dL ALT (7-56) units/L Alkaline Phosphatase (35-129) units/L Total Protein (6.3-8.2) g/dL Albumin (3.9-5) g/dL Albumin/Globulin Ratio % 09/30/20 09/30/2020 Range/Units 10:12 13:34 17:18 WBC (4.5-11.0) K/mm3 RBC (3.65-5.03) M/mm3 Hgb (10.1-14.3) gm/dl Hct (30.3-42.9) % MCV (79-97) fl MCH (28-32) pg MCHC (30-34) % RDW (13.2-15.2) % Plt Count (140-440) K/mm3 Lymph % (Auto) (13.4-35.0) % Rogers % (Auto) (0.0-7.3) % Eos % (Auto) (0.0-4.3) % Baso % (Auto) (0.0-1.8) % Lymph # (Auto) (1.2-5.4) K/mm3 Rogers # (Auto) (0.0-0.8) K/mm3 Eos # (Auto) (0.0-0.4) K/mm3 Baso # (Auto) (0.0-0.1) K/mm3 Seg Neutrophils % (40.0-70.0) % Seg Neutrophils # (1.8-7.7) K/mm3 ABG pH (7.350-7.450) pH Units ABG pCO2 mm Hg ABG pO2 (80.0-90.0) mm Hg ABG HCO3 (20.0-26.0) mmol/L ABG O2 Saturation (95.0-99.0) % ABG O2 Content (0.0-44) ABG Base Excess (-2.0-3.0) mmol/L ABG Hemoglobin (12.0-16.0) gm/dl ABG Carboxyhemoglobin (0.0-5.0) % ABG Methemoglobin (0.0-1.5) % Oxyhemoglobin (95.0-99.0) % FiO2 % Sodium (137-145) mmol/L Potassium (3.6-5.0) mmol/L Chloride (98-107) mmol/L Carbon Dioxide (22-30) mmol/L Anion Gap mmol/L BUN (7-17) mg/dL Creatinine (0.6-1.2) mg/dL Estimated GFR ml/min BUN/Creatinine Ratio % Glucose (65-100) mg/dL POC Glucose 167 H 135 H 253 H (70-105) mg/dL Lactic Acid (0.7-2.0) mmol/L Calcium (8.4-10.2) mg/dL Total Bilirubin (0.1-1.2) mg/dL ALT (7-56) units/L Alkaline Phosphatase (35-129) units/L Total Protein (6.3-8.2) g/dL Albumin (3.9-5) g/dL Albumin/Globulin Ratio % 09/30/20 10/01/20 10/01/20 Range/Units 21:19 08:07 08:35 WBC 7.6 (4.5-11.0) K/mm3 RBC 3.78 (3.65-5.03) M/mm3 Hgb 12.1 (10.1-14.3) gm/dl Hct 36.4 (30.3-42.9) % MCV 96 (79-97) fl MCH 32 (28-32) pg MCHC 33 (30-34) % RDW 14.6 (13.2-15.2) % Plt Count 213 (140-440) K/mm3 Lymph % (Auto) 6.1 L (13.4-35.0) % Rogers % (Auto) 5.1 (0.0-7.3) % Eos % (Auto) 0.0 (0.0-4.3) % Baso % (Auto) 0.4 (0.0-1.8) % Lymph # (Auto) 0.5 L (1.2-5.4) K/mm3 Rogers # (Auto) 0.4 (0.0-0.8) K/mm3 Eos # (Auto) 0.0 (0.0-0.4) K/mm3 Baso # (Auto) 0.0 (0.0-0.1) K/mm3 Seg Neutrophils % 88.4 H (40.0-70.0) % Seg Neutrophils # 6.7 (1.8-7.7) K/mm3 ABG pH (7.350-7.450) pH Units ABG pCO2 mm Hg ABG pO2 (80.0-90.0) mm Hg ABG HCO3 (20.0-26.0) mmol/L ABG O2 Saturation (95.0-99.0) % ABG O2 Content (0.0-44) ABG Base Excess (-2.0-3.0) mmol/L ABG Hemoglobin (12.0-16.0) gm/dl ABG Carboxyhemoglobin (0.0-5.0) % ABG Methemoglobin (0.0-1.5) % Oxyhemoglobin (95.0-99.0) % FiO2 % Sodium (137-145) mmol/L Potassium (3.6-5.0) mmol/L Chloride (98-107) mmol/L Carbon Dioxide (22-30) mmol/L Anion Gap mmol/L BUN (7-17) mg/dL Creatinine (0.6-1.2) mg/dL Estimated GFR ml/min BUN/Creatinine Ratio % Glucose (65-100) mg/dL POC Glucose 271 H 121 H (70-105) mg/dL Lactic Acid (0.7-2.0) mmol/L Calcium (8.4-10.2) mg/dL Total Bilirubin (0.1-1.2) mg/dL ALT (7-56) units/L Alkaline Phosphatase (35-129) units/L Total Protein (6.3-8.2) g/dL Albumin (3.9-5) g/dL Albumin/Globulin Ratio % 10/31/20 Range/Units 08:35 WBC (4.5-11.0) K/mm3 RBC (3.65-5.03) M/mm3 Hgb (10.1-14.3) gm/dl Hct (30.3-42.9) % MCV (79-97) fl MCH (28-32) pg MCHC (30-34) % RDW (13.2-15.2) % Plt Count (140-440) K/mm3 Lymph % (Auto) (13.4-35.0) % Rogers % (Auto) (0.0-7.3) % Eos % (Auto) (0.0-4.3) % Baso % (Auto) (0.0-1.8) % Lymph # (Auto) (1.2-5.4) K/mm3 Rogers # (Auto) (0.0-0.8) K/mm3 Eos # (Auto) (0.0-0.4) K/mm3 Baso # (Auto) (0.0-0.1) K/mm3 Seg Neutrophils % (40.0-70.0) % Seg Neutrophils # (1.8-7.7) K/mm3 ABG pH (7.350-7.450) pH Units ABG pCO2 mm Hg ABG pO2 (80.0-90.0) mm Hg ABG HCO3 (20.0-26.0) mmol/L ABG O2 Saturation (95.0-99.0) % ABG O2 Content (0.0-44) ABG Base Excess (-2.0-3.0) mmol/L ABG Hemoglobin (12.0-16.0) gm/dl ABG Carboxyhemoglobin (0.0-5.0) % ABG Methemoglobin (0.0-1.5) % Oxyhemoglobin (95.0-99.0) % FiO2 % Sodium 139 (137-145) mmol/L Potassium 4.3 (3.6-5.0) mmol/L Chloride 94.6 L (98-107) mmol/L Carbon Dioxide 36 H D (22-30) mmol/L Anion Gap 13 mmol/L BUN 23 H (7-17) mg/dL Creatinine 0.7 (0.6-1.2) mg/dL Estimated GFR > 60 ml/min BUN/Creatinine Ratio 33 % Glucose 134 H (65-100) mg/dL POC Glucose (70-105) mg/dL Lactic Acid (0.7-2.0) mmol/L Calcium 8.8 (8.4-10.2) mg/dL Total Bilirubin (0.1-1.2) mg/dL ALT (7-56) units/L Alkaline Phosphatase (35-129) units/L Total Protein (6.3-8.2) g/dL Albumin (3.9-5) g/dL Albumin/Globulin Ratio % CBC 10/01/20 Range/Units 08:35 WBC 7.6 (4.5-11.0) K/mm3 RBC 3.78 (3.65-5.03) M/mm3 Hgb 12.1 (10.1-14.3) gm/dl Hct 36.4 (30.3-42.9) % Plt Count 213 (140-440) K/mm3 Lymph # (Auto) 0.5 L (1.2-5.4) K/mm3 Rogers # (Auto) 0.4 (0.0-0.8) K/mm3 Eos # (Auto) 0.0 (0.0-0.4) K/mm3 Baso # (Auto) 0.0 (0.0-0.1) K/mm3 Comprehensive Metabolic Panel 10/01/20 Range/Units 08:35 Sodium 139 (137-145) mmol/L Potassium 4.3 (3.6-5.0) mmol/L Chloride 94.6 L (98-107) mmol/L Carbon Dioxide 36 H D (22-30) mmol/L BUN 23 H (7-17) mg/dL Creatinine 0.7 (0.6-1.2) mg/dL Glucose 134 H (65-100) mg/dL Calcium 8.8 (8.4-10.2) mg/dL - Imaging and Cardiology Echo: report reviewed (07/2020 severe LV dysfunction EF 25-30% right-sided pressure overload with D septum with severe pulmonary pretension) EKG interpretations - Telemetry EKG Rhythm: Sinus Tachycardia (Sinus tachycardia left bundle branch block) Assessment and Plan Stop Norvasc 2.5 mg start low-dose Cardizem also low-dose Lasix. Continue pulmonary treatment possible discharge in a.m. if stable - Patient Problems (1) Acute respiratory failure with hypoxia Current Visit: Yes Status: Acute (2) COPD with acute exacerbation Current Visit: Yes Status: Acute (3) COPD (chronic obstructive pulmonary disease) Current Visit: Yes Status: Chronic Qualifiers: COPD type: unspecified COPD Qualified Code(s): J44.9 - Chronic obstructive pulmonary disease, unspecified (4) Acute heart failure with preserved ejection fraction Current Visit: No Status: Acute (5) Cor pulmonale Current Visit: No Status: Acute (6) NSVT (nonsustained ventricular tachycardia) Current Visit: No Status: Acute (7) Hyperlipemia Current Visit: No Status: Chronic (8) Severe pulmonary arterial systolic hypertension Current Visit: No Status: Chronic
[2020-10-01] MEDS: FUROSEMIDE 20 MG TAB PO SCH (14:21)
[2020-10-01] MEDS: dilTIAZem 30 MG TAB PO SCH ×2 (14:22→18:23)
--- NOTE | 2020-10-01 18:25 | Progress Note ---
Assessment and Plan --Acute on chronic respiratory failure with hypoxia and hypercapnia Cont with bronchodilators IV Solu-Medrol IV Levaquin Supplemental oxygen - 4L o2 Pulmonary consult if no improvement -- COPD with acute exacerbation Bronchodilators with supple. Oxygen IV Solu-Medrol IV antibiotics -- Acute on chronic systolic Heart failure with EF 20-25% Strict I's and O's, Daily weights 2 Gram sodium diet Commence patient on iv Furosemide, ACEI, will hold beta blockers because of acute respiratory failure, Continue with Statins, Cardiology consult -- Suspected COVID-19 virus infection respiratory care, oxygen supplement, Bronchodilator PRN for shortness of breath Director Property consult Empiric abx with low Levaquin -- Severe Pul Hypertension -- Cor pulmonale diuresis -- T2DM A1c 6.9% SSI Consistent CHO diet -- Tobacco use disorder Tobacco cessation counseling was done -- DVT prophylaxis with Lovenox and GI with Pepcid -- CODE STATUS: Discussed CODE STATUS with the patient who is was very lucid. Stated that she is full code Brief History: Patient is a 79-year-old female that presents emergency room on 2L home O2 with complaints of shortness of breath and difficulty breathing. Patient was hypoxic with O2 sat 88% and was placed on bipap and her condition improved. ED Work up showed: WBC 6.0. hemoglobin 11.0, sodium 143, potassium 3.6, Cr 0.6 Lactic acid normal, serum blood sugar 140, albumen 3.5, Chest x-ray-shows mild or chronic CHF. admitted for further evaluation and mx 09/29: Patient now on 6L n/c, transfer to remote [facility]. cont current Mx and follow clinically. covid test ordered 09/30: pending COVID, patient on 4 L o2, cont supportive care 10/01; CONT supporive care, diuretics, wean off O2 as tolerated. if clinically stable possible d/c tomorrow Subjective Date of service: 10/01/20 Principal diagnosis: Ac on ch hypoxemic resp failure; AE-COPD; CHF (HFpEF); Pulm HTN; DM II; HTN Interval history: Patient seen and examined c/o SOB, tolerating diet, no chest pain covid test still pending on supplemental o2 Objective - Exam Narrative Exam: - General Limitations: No Limitations General appearance: alert, no distress - Head Head exam: Present: atraumatic, normocephalic - Eye Eye exam: Present: normal appearance - ENT ENT exam: Present: mucous membranes moist - Neck Neck exam: Present: normal inspection - Respiratory Respiratory exam: Present: b/l decreased breath sounds - Cardiovascular Cardiovascular Exam: Present: regular rate, normal rhythm. Absent: systolic murmur, diastolic murmur, rubs, gallop - GI/Abdominal GI/Abdominal exam: Present: soft, normal bowel sounds - Extremities Exam Extremities exam: Present: normal inspection - Back Exam Back exam: Present: normal inspection - Neurological Exam Neurological exam: Present: alert, oriented X3 - Psychiatric Psychiatric exam: Present: normal affect, normal mood - Skin Skin exam: Present: warm, dry, intact, normal color. Absent: rash - Constitutional Vitals: Vital Signs - 12hr 10/01/20 10/01/20 10/01/20 09:00 09:32 10:00 Temperature Pulse Rate 99 H Pulse Rate [ 98 H Anterior Bilateral Throughout] Respiratory Rate Respiratory 18 Rate [Anterior Bilateral Throughout] Blood Pressure 100/70 O2 Sat by Pulse 98 Oximetry 10/01/20 10/01/20 10/01/20 11:53 14:22 14:23 Temperature 98.0 F Pulse Rate 120 H 130 H Pulse Rate [ 135 H Anterior Bilateral Throughout] Respiratory 18 Rate Respiratory 20 Rate [Anterior Bilateral Throughout] Blood Pressure 120/69 120/69 O2 Sat by Pulse 100 Oximetry - Labs CBC & Chem 7: 10/01/20 08:35 10/02/20 07:59 Labs: Abnormal lab results 09/30/20 10/01/20 10/01/20 Range/Units 21:19 08:07 08:35 Lymph % (Auto) 6.1 L (13.4-35.0) % Lymph # (Auto) 0.5 L (1.2-5.4) K/mm3 Seg Neutrophils % 88.4 H (40.0-70.0) % POC ABG pCO2 (32.0-48.0) mmHg POC ABG pO2 (83-108) mmHg ABG Sodium (136.0-145.0) mmol/L ABG Glucose (65-95) mg/dL Chloride (98-107) mmol/L Carbon Dioxide (22-30) mmol/L BUN (7-17) mg/dL Glucose (65-100) mg/dL POC Glucose 271 H 121 H (70-105) mg/dL Arterial Blood Glucose (65-95) mg/dL 10/01/20 10/01/20 10/01/20 Range/Units 08:35 11:53 12:07 Lymph % (Auto) (13.4-35.0) % Lymph # (Auto) (1.2-5.4) K/mm3 Seg Neutrophils % (40.0-70.0) % POC ABG pCO2 54.7 H (32.0-48.0) mmHg POC ABG pO2 79.2 L (83-108) mmHg ABG Sodium 133.5 L (136.0-145.0) mmol/L ABG Glucose 120 H (65-95) mg/dL Chloride 94.6 L (98-107) mmol/L Carbon Dioxide 36 H D (22-30) mmol/L BUN 23 H (7-17) mg/dL Glucose 134 H (65-100) mg/dL POC Glucose 132 H (70-105) mg/dL Arterial Blood Glucose 120 H (65-95) mg/dL
[2020-10-01] MEDS ORDERED: DEXAMETHASONE 2 MG TAB PO SCH (22:00)
[2020-10-01] MEDS ORDERED: PRAVASTATIN 20 MG TAB PO SCH (22:00)
[2020-10-02] MEDS: dilTIAZem 30 MG TAB PO SCH ×2 (00:52→06:58)
[2020-10-02] MEDS: IPRATROPIUM/ALBUTEROL SULFATE 3 ML AMPUL.NEB IH SCH ×3 (02:04→14:12)
[2020-10-02 08:54] LABS: BUN/Creatinine Ratio 31; Blood Urea Nitrogen 22 mg/dL (7-17); Calcium 9.1 mg/dL (8.4-10.2); Hemolysis Index 4
[2020-10-02] MEDS: FUROSEMIDE 20 MG TAB PO SCH (09:37)
[2020-10-02] MEDS: ENOXAPARIN 40 MG/0.4 ML INJ SUB-Q SCH (09:37)
[2020-10-02] MEDS: levoFLOXacin 500 MG TAB PO SCH (09:37)
[2020-10-02] MEDS: FAMOTIDINE 20 MG TAB PO SCH (09:37)
[2020-10-02] MEDS: INSULIN REGULAR, HUMAN 100 UNIT/ML 3ML VIAL SUB-Q SCH ×2 (09:39→12:47)
[2020-10-02] MEDS ORDERED: dilTIAZem 30 MG TAB PO SCH ×2 (10:00→14:00)
--- NOTE | 2020-10-02 10:34 | Progress Note ---
Assessment and Plan Continue Cardizem 30 mg 3 times a day and low-dose Lasix. Patient may be discharged from cardiovascular point of view. Patient has end-stage COPD prognosis is poor with severe pulmonary hypertension cor pulmonale - Patient Problems (1) Acute respiratory failure with hypoxia Current Visit: Yes Status: Acute (2) COPD with acute exacerbation Current Visit: Yes Status: Acute (3) COPD (chronic obstructive pulmonary disease) Current Visit: Yes Status: Chronic Qualifiers: COPD type: unspecified COPD Qualified Code(s): J44.9 - Chronic obstructive pulmonary disease, unspecified (4) Acute heart failure with preserved ejection fraction Current Visit: No Status: Acute (5) Cor pulmonale Current Visit: No Status: Acute (6) NSVT (nonsustained ventricular tachycardia) Current Visit: No Status: Acute (7) Hyperlipemia Current Visit: No Status: Chronic (8) Severe pulmonary arterial systolic hypertension Current Visit: No Status: Chronic Subjective Date of service: 10/02/20 Principal diagnosis: Ac on ch hypoxemic resp failure; AE-COPD; CHF (HFpEF); Pulm HTN; DM II; HTN Interval history: pt sitting in chair and sob is better Objective Vital Signs Temp Pulse Pulse Pulse Resp Resp Resp 10/02/20 09:42 50 L 10/02/20 08:10 10/02/20 08:00 50 L 18 10/02/20 06:24 97.8 F 51 L 18 10/02/20 02:04 76 80 20 20 10/01/20 23:26 18 10/01/20 23:09 98.8 F 86 16 10/01/20 20:52 10/01/20 20:49 82 88 20 20 10/01/20 20:48 72 10/01/20 19:10 72 10/01/20 18:23 135 H 10/01/20 17:41 98.1 F 46 L 22 10/01/20 14:23 135 H 20 10/01/20 14:22 130 H 10/01/20 11:53 98.0 F 120 H 18 BP Pulse Ox 10/02/20 09:42 105/73 10/02/20 08:10 100 10/02/20 08:00 10/02/20 06:24 105/73 100 10/02/20 02:04 10/01/20 23:26 10/01/20 23:09 88/48 100 10/01/20 20:52 97 10/01/20 20:49 10/01/20 20:48 10/01/20 19:10 10/01/20 18:23 120/69 10/01/20 17:41 108/46 100 10/01/20 14:23 10/01/20 14:22 120/69 10/01/20 11:53 120/69 100 - Physical Examination General: No Apparent Distress HEENT: Positive: PERRL, EOMI Neck: Positive: neck supple Cardiac: Positive: Tachycardia Lungs: Positive: Decreased Breath Sounds Neuro: Positive: Grossly Intact Abdomen: Positive: Soft Extremities: Present: normal. Absent: edema - Labs and Meds Comprehensive Metabolic Panel 10/02/20 Range/Units 07:59 Sodium 140 (137-145) mmol/L Potassium 4.1 (3.6-5.0) mmol/L Chloride 92.1 L (98-107) mmol/L Carbon Dioxide 40 H (22-30) mmol/L BUN 22 H (7-17) mg/dL Creatinine 0.7 (0.6-1.2) mg/dL Glucose 168 H (65-100) mg/dL Calcium 9.1 (8.4-10.2) mg/dL - Imaging and Cardiology Echo: report reviewed (07/2020 severe LV dysfunction EF 25-30% right-sided pressure overload with D septum with severe pulmonary pretension) - Telemetry EKG Rhythm: Sinus Rhythm (with apc)
[2020-10-02 13:05] VITALS: BP 108/41
--- NOTE | 2020-10-02 13:50 | Discharge Summary ---
Providers - Providers Date of Admission: 09/29/20 04:29 Date of discharge: 10/02/20 Attending physician: PAPITO RIBEIRO 09/29/20 06:36 Consult to Physician [CONS] Stat Comment: Consulting Provider: AKOSUA WAKEFIELD Physician Instructions: Reason For Exam: COPD with acute exacerbation 10/01/20 09:20 Consult to Physician [CONS] Routine Comment: Consulting Provider: HERNAN MEDINA Physician Instructions: Reason For Exam: chf Primary care physician: PEMA CONTRERAS Hospitalization Condition: Critical Hospital course: Patient is a 79-year-old female that presents emergency room on 2L home O2 with complaints of shortness of breath and difficulty breathing. Patient was hypoxic with O2 sat 88% and was placed on bipap and her condition improved. ED Work up showed: WBC 6.0. hemoglobin 11.0, sodium 143, potassium 3.6, Cr 0.6 Lactic acid normal, serum blood sugar 140, albumen 3.5, Chest x-ray-shows mild or chronic CHF. admitted for further evaluation and mx 09/29: Patient now on 6L n/c, transfer to remote [facility]. cont current Mx and follow clinically. covid test ordered 09/30: pending COVID, patient on 4 L o2, cont supportive care 10/01; CONT supporive care, diuretics, wean off O2 as tolerated. if clinically stable possible d/c tomorrow 10/02: negative for covid, d/c home today with HH Discharge diagnosis: --Acute on chronic respiratory failure with hypoxia and hypercapnia Cont with bronchodilators IV Solu-Medrol IV Levaquin Supplemental oxygen - 4L o2 Pulmonary consult if no improvement -- COPD with acute exacerbation Bronchodilators with supple. Oxygen IV Solu-Medrol IV antibiotics -- Acute on chronic systolic Heart failure with EF 20-25% Strict I's and O's, Daily weights 2 Gram sodium diet Commence patient on iv Furosemide, ACEI, will hold beta blockers because of acute respiratory failure, Continue with Statins, Cardiology consult -- Suspected COVID-19 virus infection respiratory care, oxygen supplement, Bronchodilator PRN for shortness of breath [employer] consult Empiric abx with low Levaquin -- Severe Pul Hypertension -- Cor pulmonale diuresis -- T2DM A1c 6.9% SSI Consistent CHO diet -- Tobacco use disorder Tobacco cessation counseling was done -- DVT prophylaxis with Lovenox and GI with Pepcid -- CODE STATUS: Discussed CODE STATUS with the patient who is was very lucid. Stated that she is full code Disposition: [id number] HOME UNDER HOME HL Time spent for discharge: 34 minutes Core Measure Documentation - Palliative Care Palliative Care/ Comfort Measures: Not Applicable - Core Measures Any of the following diagnoses?: heart failure - Heart Failure Discharge Requirements KALEN/ARB for LVSD if EF <40%: Yes Beta alanna at discharge: Yes Exam - Physical Exam Narrative exam: - General Limitations: No Limitations General appearance: alert, no distress - Head Head exam: Present: atraumatic, normocephalic - Eye Eye exam: Present: normal appearance - ENT ENT exam: Present: mucous membranes moist - Neck Neck exam: Present: normal inspection - Respiratory Respiratory exam: Present: b/l decreased breath sounds - Cardiovascular Cardiovascular Exam: Present: regular rate, normal rhythm. Absent: systolic murmur, diastolic murmur, rubs, gallop - GI/Abdominal GI/Abdominal exam: Present: soft, normal bowel sounds - Extremities Exam Extremities exam: Present: normal inspection - Back Exam Back exam: Present: normal inspection - Neurological Exam Neurological exam: Present: alert, oriented X3 - Psychiatric Psychiatric exam: Present: normal affect, normal mood - Skin Skin exam: Present: warm, dry, intact, normal color. Absent: rash - Constitutional Vitals: Temp Pulse Resp BP Pulse Ox 97.9 F 49 L 18 108/41 100 10/02/20 11:05 10/02/20 11:05 10/02/20 11:05 10/02/20 11:05 10/02/20 11:05 Plan Activity: fall precautions Weight Bearing Status: Non-Weight Bearing Diet: low fat, low salt, diabetic Special Instructions: restrict fluid intake to (1.2 L/day), home oxygen via (n/c), home health RN Prescriptions: Arformoterol Nebu [Brovana Nebu] 15 mcg IH Q12HRT 30 Days dilTIAZem [Cardizem] 30 mg PO TID #30 tablet predniSONE [Deltasone] 10 mg PO .TAPER #48 tab Furosemide [Lasix TAB] 20 mg PO QDAY #30 tablet
--- NOTE | 2020-10-02 14:37 | Progress Note ---
Assessment and Plan Acute on chronic hypoxemic-hypercapnic respiratory failure. PUI COVID-19 Acute chronic obstructive pulmonary disease exacerbation. 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 Possible congestive heart failure exacerbation. Leukopenia History of diabetes. Hypertension. Hyperlipidemia - continue to wean supplemental oxygen to keep O2 sats 88-90% -BIPAP qhs and prn for work of breathing and hypercarbia -Oxygen restrictive strategies - Bronchodilators (JUAN ALBERTO & LABA) with pulm hygiene per RT - continue systemic steroids with slow taper - continue inhaled corticosteroids - PT/OT as tolerated - prn analgesia per pain score - accuchecks with glycemic control per SSI for target blood glucose < 180 mg/dL - Smoking cessation strongly counseled at the bedside- encouraged to remain quit - Stress ulcer prophylaxis while critically ill and on high dose steroids -VTE prophylaxis -CXR, ABG as clinically indicated -Avoid benzodiazepines, reduce the possibility of delirium -Maintain sleep wake pattern -Optimization of nutritional support -Conservative fluid management measures as tolerated by hemodynamics and renal function -Antibiotics for severe AE-COPD - Avoid nephrotoxins, closely monitor renal function, dose all medications for renal function - Mobility protocol, off loading and skin assessment for pressure ulcer prevention - Influenza and pneumonia vaccinations per protocol - Pulmonary out patient follow up for PFTs and optimization of respiratory status Subjective Date of service: 10/02/20 Principal diagnosis: Ac on ch hypoxemic resp failure; AE-COPD; CHF (HFpEF); Pulm HTN; DM II; HTN Interval history: Patient is seen today for: Acute on chronic hypoxemic respiratory failure; AE- COPD; CHF (HFpEF); Pulm HTN; DM II; HTN; PUI COVID-19 Seen and examined at bedside; 24hour events reviewed; nursing and respiratory care staff consulted; no adverse overnight events reported to me; resting peacefully in bed; still has conversational dyspnea asking for her bronchodilators; denies any chest pain, no fevers or chills, no diarrhea or vomiting. Discharge planning for today Objective Vital Signs - 12hr 10/02/20 10/02/20 10/02/20 06:24 08:00 08:10 Temperature 97.8 F Pulse Rate 51 L Pulse Rate [ 50 L Anterior Bilateral Throughout] Respiratory 18 Rate Respiratory 18 Rate [Anterior Bilateral Throughout] Blood Pressure 105/73 O2 Sat by Pulse 100 100 Oximetry 10/02/20 10/02/20 10/02/20 09:42 11:05 14:00 Temperature 97.9 F Pulse Rate 50 L 49 L Pulse Rate [ 54 L Anterior Bilateral Throughout] Respiratory 18 Rate Respiratory 18 Rate [Anterior Bilateral Throughout] Blood Pressure 105/73 108/41 O2 Sat by Pulse 100 Oximetry Constitutional: appears uncomfortable, other (Thin, cachetic with increased work of breathing) Eyes: non-icteric ENT: oropharynx dry Neck: supple, no lymphadenopathy, no JVD Effort: mildly labored Ascultation: Bilateral: diminished breath sounds, other (quiet chest) Cardiovascular: regular rate and rhythm, other (S1,S2) Gastrointestinal: normoactive bowel sounds, soft, non-tender, non-distended Integumentary: rash Extremities: no cyanosis, no edema, pulses normal Neurologic: normal mental status, non-focal exam, pupils equal and round, CN II- XII normal, motor strength normal and Psychiatric: mood appropriate, anxious CBC and BMP: 10/01/20 08:35 10/02/20 07:59 ABG, PT/INR, D-dimer: ABG ABG pH 7.412 (7.320-7.450) 10/01/20 11:53 POC ABG pCO2 54.7 mmHg (32.0-48.0) H 10/01/20 11:53 ABG pCO2 61.9 mm Hg 09/29/20 10:04 POC ABG pO2 79.2 mmHg (83-108) L 10/01/20 11:53 ABG pO2 72.8 mm Hg (80.0-90.0) L 09/29/20 10:04 POC ABG HCO3 34.1 10/01/20 11:53 ABG O2 Saturation 95.4 % (95.0-99.0) 09/29/20 10:04 Abnormal lab findings: Abnormal Labs 09/29/20 09/29/20 09/29/20 02:21 02:21 08:21 RBC 3.43 L MCV 98 H Lymph % (Auto) Lymph # (Auto) Seg Neutrophils % POC ABG pCO2 POC ABG pO2 ABG pO2 ABG HCO3 ABG Base Excess ABG Hemoglobin ABG Sodium ABG Glucose Oxyhemoglobin Chloride Carbon Dioxide BUN Glucose 140 H POC Glucose 212 H Albumin 3.5 L Arterial Blood Glucose 09/29/20 09/29/20 09/30/20 10:04 23:13 10:12 RBC MCV Lymph % (Auto) Lymph # (Auto) Seg Neutrophils % POC ABG pCO2 POC ABG pO2 ABG pO2 72.8 L ABG HCO3 35.6 H ABG Base Excess 8.5 H ABG Hemoglobin 11.7 L ABG Sodium ABG Glucose Oxyhemoglobin 93.6 L Chloride Carbon Dioxide BUN Glucose POC Glucose 170 H 167 H Albumin Arterial Blood Glucose 09/30/20 09/30/20 09/30/20 13:34 17:18 21:19 RBC MCV Lymph % (Auto) Lymph # (Auto) Seg Neutrophils % POC ABG pCO2 POC ABG pO2 ABG pO2 ABG HCO3 ABG Base Excess ABG Hemoglobin ABG Sodium ABG Glucose Oxyhemoglobin Chloride Carbon Dioxide BUN Glucose POC Glucose 135 H 253 H 271 H Albumin Arterial Blood Glucose 10/01/20 10/01/20 10/01/20 08:07 08:35 08:35 RBC MCV Lymph % (Auto) 6.1 L Lymph # (Auto) 0.5 L Seg Neutrophils % 88.4 H POC ABG pCO2 POC ABG pO2 ABG pO2 ABG HCO3 ABG Base Excess ABG Hemoglobin ABG Sodium ABG Glucose Oxyhemoglobin Chloride 94.6 L Carbon Dioxide 36 H D BUN 23 H Glucose 134 H POC Glucose 121 H Albumin Arterial Blood Glucose 10/01/20 10/01/20 10/01/20 11:53 12:07 17:58 RBC MCV Lymph % (Auto) Lymph # (Auto) Seg Neutrophils % POC ABG pCO2 54.7 H POC ABG pO2 79.2 L ABG pO2 ABG HCO3 ABG Base Excess ABG Hemoglobin ABG Sodium 133.5 L ABG Glucose 120 H Oxyhemoglobin Chloride Carbon Dioxide BUN Glucose POC Glucose 132 H 127 H Albumin Arterial Blood Glucose 120 H 10/01/20 10/02/20 10/02/20 23:25 07:55 07:59 RBC MCV Lymph % (Auto) Lymph # (Auto) Seg Neutrophils % POC ABG pCO2 POC ABG pO2 ABG pO2 ABG HCO3 ABG Base Excess ABG Hemoglobin ABG Sodium ABG Glucose Oxyhemoglobin Chloride 92.1 L Carbon Dioxide 40 H BUN 22 H Glucose 168 H POC Glucose 142 H 156 H Albumin Arterial Blood Glucose 10/02/20 12:22 RBC MCV Lymph % (Auto) Lymph # (Auto) Seg Neutrophils % POC ABG pCO2 POC ABG pO2 ABG pO2 ABG HCO3 ABG Base Excess ABG Hemoglobin ABG Sodium ABG Glucose Oxyhemoglobin Chloride Carbon Dioxide BUN Glucose POC Glucose 220 H Albumin Arterial Blood Glucose Allied health notes reviewed: RT
== END 2020-10-02 16:37 | disposition home health service (06) | DRG 291 ==
LOC: ED 01:54 → IMCU 04:29 → 3A 18:35
PROVIDERS: ADMIT Internal Medicine Geriatric Medicine; ATTEND Internal Medicine
DX: I11.0 Hypertensive heart disease with heart failure (principal); J96.21 Acute and chronic respiratory failure with hypoxia; E43 Unspecified severe protein-calorie malnutrition; J96.22 Acute and chronic respiratory failure with hypercapnia; J44.1 Chronic obstructive pulmonary disease with (acute) exacerbation; I47.2 Ventricular tachycardia; I50.23 Acute on chronic systolic (congestive) heart failure; I50.9 Heart failure, unspecified; E78.5 Hyperlipidemia, unspecified; E11.9 Type 2 diabetes mellitus without complications; Z87.891 Personal history of nicotine dependence; Z79.82 Long term (current) use of aspirin; Z79.84 Long term (current) use of oral hypoglycemic drugs; I27.20 Pulmonary hypertension, unspecified; I27.81 Cor pulmonale (chronic); Z20.828 Contact with and (suspected) exposure to other viral communicable diseases
CPT/HCPCS: 36415; 71045; 80048; 80053; 82140; 82803; 82805; 82962; 85025; 94640; 94644; 94760; G0378; A9270-GY; J1650; J1815; J2930; J3475; J7512; J8540; U0003